=== PATIENT | female | born 1970 | race Caucasian/White ===

== ENCOUNTER 2018-01-21 00:48 | Outpatient (CLI) | payer MEDICAID, SELFPAY ==
--- NOTE | 2018-01-21 09:42 | DI.RAD_ITS ---
SYMPTOMS/DIAGNOSIS: CONSTIPATION, ? BOWEL OBSTRUCTION, K59.00 ABDOMEN: Two views were obtained. There is a large quantity of fecal material throughout the colon. No evidence of obstruction and otherwise the bowel gas pattern is within normal limits. Vascular clips are noted in right upper quadrant, left upper quadrant and the pelvis. CONCLUSION: Findings raising the possibility of constipation. No evidence of obstruction.
== END 2018-01-21 01:08 ==
PROVIDERS: PCP Nurse Practitioner; Visit Provider Surgery
DX: K59.00 Constipation, unspecified (principal)
CPT/HCPCS: 74019

== ENCOUNTER 2018-01-24 10:04 | Outpatient (CLI) | payer MEDICAID, SELFPAY ==
--- NOTE | 2018-01-24 06:00 | DI.RAD_ITS ---
SYMPTOMS/DIAGNOSIS: SACROILIAC JOINT DYSFUNCTION PAIN CLINIC: Fluoroscopy Time: 11.7 sec Fluoroscopy was utilized by Dr. Garrido during the performance of a right sacroiliac joint injection. Please refer to the procedure report for complete details.
[2018-01-24 10:42] VITALS: BP 107/72; PULSE 82; RESP 16; TEMP 36.8; O2SAT 98
[2018-01-24] MEDS: Omnipaque 240 MG/ML 50 ML BTL IJ (11:15)
[2018-01-24] MEDS: methylPREDNISolone ACETATE 80 MG/ML VIAL IJ (11:16)
[2018-01-24 11:17] VITALS: BP 119/78; PULSE 83; RESP 16; O2SAT 98
--- NOTE | 2018-01-24 13:46 | PDOC.PAIN ---
Pain Clinic Procedure Note INTRA-ARTICULAR SI JOINT INJECTION TARUN JEONG has been referred to the [facility] for intra-articular SI joint injection. COMMENTS: Previously evaluated DX: Sacroiliac joint dysfunction - Right Patient was interviewed and the medical record reviewed. There were no medical, pharmacologic, radiographic or other structural contraindications to attempting fluoroscopically guided intra-articular SI joint injection. Risks and expected side effects as well as potential benefit of the procedure were reviewed and voiced concerns addressed. The printed consent form was signed and witnessed. Standard time-out procedure was performed. Patient was placed in the prone position on the fluoroscopy table and automated blood pressure cuff and pulse oximeter applied. The skin entry point for approaching right/ SI joint was identified under the most advantageous fluoroscopic view and marked. Following thorough Chlorhexadine preparation of the skin and draping and 1% lidocaine infiltration of the skin entry point and subcutaneous tissues, a 22 gauge spinal needle was placed under fluoroscopic guidance into right SI joint was identified under the most advantageous fluoroscopic view and marked. Following thorough Chlorhexadine preparation of the skin and draping and 1% lidocaine infiltration of the skin entry point and subcutaneous tissues, a 22 gauge spinal needle was placed under fluoroscopic guidance into Right SI joint. Intra-articular placement was confirmed by a clear arthrogram resulting from the injection of 0.25ml Omnipaque 240, 1ml 1% lidocaine, and 40mg Depomedrol were injected intra-articularily with an initial reproduction of a significant component of the usual pain. Vital signs were stable throughout the procedure and were as recorded in the docflowsheet by the nursing staff. If given, dosages of intravenous drugs for anxiolysis and analgesia were documented in MAR. Follow up plans and appointments were discussed with the patient. Post procedure instruction was given as documented in nursing documentation and having met discharge criteria, and was discharged from the [facility]. COMMENTS: This procedure can be completed up to 3 times per 12 months if it is found to be effective. CC: Ariana Gordillo
--- NOTE | 2018-03-21 13:49 | PDOC.PAIN_ITS ---
Pain Clinic Procedure Note INTRA-ARTICULAR SI JOINT INJECTION TARUN JEONG has been referred to the [facility] for intra- articular SI joint injection. COMMENTS: Previously evaluated DX: Sacroiliac joint dysfunction - Right Patient was interviewed and the medical record reviewed. There were no medical , pharmacologic, radiographic or other structural contraindications to attempting fluoroscopically guided intra-articular SI joint injection. Risks and expected side effects as well as potential benefit of the procedure were reviewed and voiced concerns addressed. The printed consent form was signed and witnessed. Standard time-out procedure was performed. Patient was placed in the prone position on the fluoroscopy table and automated blood pressure cuff and pulse oximeter applied. The skin entry point for approaching right/ SI joint was identified under the most advantageous fluoroscopic view and marked. Following thorough Chlorhexadine preparation of the skin and draping and 1% lidocaine infiltration of the skin entry point and subcutaneous tissues, a 22 gauge spinal needle was placed under fluoroscopic guidance into right SI joint was identified under the most advantageous fluoroscopic view and marked. Following thorough Chlorhexadine preparation of the skin and draping and 1% lidocaine infiltration of the skin entry point and subcutaneous tissues, a 22 gauge spinal needle was placed under fluoroscopic guidance into Right SI joint. Intra-articular placement was confirmed by a clear arthrogram resulting from the injection of 0.25ml Omnipaque 240, 1ml 1% lidocaine, and 40mg Depomedrol were injected intra-articularily with an initial reproduction of a significant component of the usual pain. Vital signs were stable throughout the procedure and were as recorded in the docflowsheet by the nursing staff. If given, dosages of intravenous drugs for anxiolysis and analgesia were documented in MAR. Follow up plans and appointments were discussed with the patient. Post procedure instruction was given as documented in nursing documentation and having met discharge criteria, and was discharged from the [facility]. COMMENTS: This procedure can be completed up to 3 times per 12 months if it is found to be effective. CC: Ariana Gordillo
== END 2018-01-24 10:24 ==
PROVIDERS: PCP Nurse Practitioner; Visit Provider Preventive Medicine Occupational Medicine
DX: M53.3 Sacrococcygeal disorders, not elsewhere classified (principal)
CPT/HCPCS: 27096; 72200; J1040; Q9967

== ENCOUNTER 2018-03-06 09:09 | Outpatient (CLI) | payer MEDICAID, SELFPAY ==
[2018-03-06 17:49] LABS: Absolute Eosinophil Count 0.03 k/cumm (0.0-0.7); Absolute Lymphocyte Count 2.27 k/cumm (1.2-3.4); Absolute Monocyte Count 0.22 k/cumm (0.11-0.7); Absolute Neutrophil Count 1.24 k/cumm (1.2-6.7); Eosinophils % 0.8; HCT 32.4 % (36.0-46.0); HGB 10.9 g/dL (12.0-15.5); Lymphocytes % 60.4; Mean Corp. HGB Concentration 33.6 g/dL (32.0-36.0); Mean Corpuscular Hemoglobin 30.2 pg (27.0-33.0); Mean Corpuscular Volume 89.8 fL (80-95); Mean Platelet Volume 9.2 fL (8.0-11.0); Monocytes % 5.9; Neutrophils % 32.9; Platelet Count 171 x1000/uL (130-400); RBC 3.61 m/cumm (4.00-5.20); RBC Distribution Width 14.9 % (11.7-14.6); White Blood Cell Count 3.76 k/cumm (4.4-10.8)
[2018-03-06 19:23] LABS: ALT 23 U/L (12-78); AST 20 U/L (15-37); Albumin 3.9 g/dL (3.4-5.0); Alkaline Phosphatase 79 U/L (46-116); BUN 9 mg/dL (7-18); Bilirubin, Total 0.1 mg/dL (0.2-1.0); CREATININE 0.89 mg/dL (0.55-1.02); Calcium 8.7 mg/dL (8.5-10.1); Chloride 100 mmol/L (98-107); Glucose 111 mg/dL (70-100); Potassium 3.4 mmol/L (3.5-5.1); Sodium 138 mmol/L (136-145); Total Protein 7.3 g/dL (6.4-8.2)
[2018-03-06 20:03] LABS: Diff Comment Diff Reviewed
== END 2018-03-06 09:29 ==
PROVIDERS: PCP Nurse Practitioner; Visit Provider Nurse Practitioner Family
DX: Z01.812 Encounter for preprocedural laboratory examination (principal); R69 Illness, unspecified
CPT/HCPCS: 36415; 80053; 85025

== ENCOUNTER 2018-03-13 02:03 | Outpatient (CLI) | payer MEDICAID, SELFPAY ==
--- NOTE | 2018-03-13 | PFT_ITS ---
PULMONARY FUNCTION TEST REPORT Patient identification - Jodee Gunter DATE OF - 66 DATE OF SERVICE - 03/13/2018 REQUESTING PROVIDER Marva Joyner NP INTERPRETATION OF STUDY Spirometry shows no evidence of obstructive airways disease. No bronchodilator testing was carried out. LUNG VOLUMES - Lung volumes show no evidence of restriction. DIFFUSION CAPACITY- Normal. AIRWAY RESISTANCE - Normal. IMPRESSION Normal pulmonary function study. Clinical correlation recommended. Cathy Roth M.D. CHRISTY/kelsey T - 03/21/2018
== END 2018-03-13 02:23 ==
PROVIDERS: PCP Nurse Practitioner; Visit Provider Nurse Practitioner Family
DX: J45.20 Mild intermittent asthma, uncomplicated (principal)
CPT/HCPCS: 94150; 94726; 94729; 94010

== ENCOUNTER 2018-03-15 09:31 | Outpatient (REF) | payer MEDICAID, SELFPAY | END 2018-03-15 09:51 | LOC: NCHCN 09:31 | PROVIDERS: PCP Nurse Practitioner; Visit Provider Nurse Practitioner Family | DX: Z01.812 Encounter for preprocedural laboratory examination (principal); Z22.322 Carrier or suspected carrier of Methicillin resistant Staphylococcus aureus | CPT/HCPCS: 87081 ==

== ENCOUNTER 2018-06-13 14:21 | Emergency (ER) | payer MEDICAID, SELFPAY ==
[2018-06-13 14:26] VITALS: BP 145/81; PULSE 98; RESP 16; TEMP 38.1; O2SAT 98
--- NOTE | 2018-06-13 14:32 | NUR.NOTE ---
pt stated that she had surgery three months ago on right hip Nursing Note:
--- NOTE | 2018-06-13 14:34 | ED.GENADUL_ITS ---
Discharge Plan Disposition Patient Disposition: HOME Condition: Stable Discharge Details Chief Complaint: Orthopedic Clinical Impression: Contusion of hip, left Reason For Visit: ZAY Primary Care Provider: Ariana Gordillo ED Provider: Scott Ryder [place] Meds and New Rx's Prescriptions: New cyclobenzaprine 10 mg tablet 10 mg PO TID PRN (Reason: muscle spasm) Qty: 30 RF: 0 ondansetron 4 mg tablet,disintegrating 4 mg PO TID PRN (Reason: nausea and vomiting) 5 Days Qty: 30 RF: 0 No Action methadone 10 mg/5 mL solution 2.5 mg PO Q12H RF: 0 Lyrica 20 MG/1 ML solution 100 mg PO BID RF: 0 PROVENTIL HFA 18 GM HFA.AER.AD 2 puff Inhalation Q 4-6 HRS RF: 0 estradiol [Estrace] 0.5 MG tablet 1 mg PO DAILY RF: 0 alprazolam 0.5 MG tablet 0.5 mg PO BID 21 Days Qty: 40 RF: 0 Ibuprofen 800 MG tablet 800 mg PO Q8H PRN PRNRF: 0 trazodone 100 MG tablet 200 mg PO HS RF: 0 Discharge Instructions Instructions: Contusion in Adults (ED) Additional Instructions: you can take 1000mg tylenol and 600mg ibuprofen every 6 hours for pain as needed if pain continues next week see your primary care provider return to the emergency department if you have inability to urinate, high fevers, or severe worsening of pain return to the emergency department Medical Decision Making 48 yo female states she slipped on ice around 10am today and landed on left buttock/hip. Denies hitting head or loc and has no preceding symptoms to suggest presyncope/syncope and states it was purely mechanical. She has pain over the left asis. No palpable deformity. Does have full rom of the left hip though with pain, intact distal sensation and 2+ dp/pt pulses, no pain in knee or ankle. NO midline pain and no saddle anesthesia so doubt cauda equina or lumbar spine injury. Will xray hip to eval for fx though suspect contusion xray negative on my read. She is bearin weight so do not feel ct/mri indicated as unlikely fx. She is requesting crutches if needed. Will d/c home and advised f/u with pcp and return precautions Differential Diagnosis contusion, fx, sprain Imaging Data Radiologic Study: Attestation: I personally reviewed and interpreted this imaging study as follows: Imaging: X-Ray My impression: no acute findings and wet read per Dr. Stone agrees HPI General Mode of arrival: EMS . Date/Time Provider Initiated Documentation: 06/13/18 14:29 . Limitations to Documentation: no limitations . Information obtained by: patient . History of Present Illness 48 year old F presents to the emergency department with the chief complaint of left hip pain, described as moderate, with intensity rated at 7. Quality is described as aching, and is localized to the left. Patient reports no radiation. Patient started experiencing this hour(s) (4) and it has been constant. Rest improves symptom(s), Movement worsens symptoms . Patient notes no other symptoms.. Patient did receive the following treatments prior to arrival, NSAID Related Data Home Medications Medication Instructions Recorded Confirmed trazodone 200 mg PO HS 09/11/16 06/13/18 Ibuprofen 800 mg PO Q8H PRN PRN 12/26/16 06/13/18 Lyrica 100 mg PO BID ml 04/05/17 06/13/18 Proventil Hfa 2 puff INHALATION Q 4-6 HRS 04/05/17 06/13/18 inhaler estradiol [Estrace] 1 mg PO DAILY tab-cap 11/10/17 06/13/18 alprazolam 0.5 mg PO BID 21 Days #40 tab 11/14/17 06/13/18 methadone 10 mg/5 mL oral solution 2.5 mg PO Q12H ml 01/07/18 06/13/18 cyclobenzaprine 10 mg PO TID PRN #30 tab 06/13/18 ondansetron 4 mg PO TID PRN 5 Days #30 tab 06/13/18 Previous Rx's Medication Instructions Recorded alprazolam 0.5 mg PO BID 21 Days #40 tab 11/14/17 cyclobenzaprine 10 mg PO TID PRN #30 tab 06/13/18 ondansetron 4 mg PO TID PRN 5 Days #30 tab 06/13/18 Allergies Allergy/AdvReac Type Severity Reaction Status Date / Time cephalexin monohydrate Allergy Intermediate Skin Rash Verified 01/24/18 10:40 [From Keflex] zaleplon [From Sonata] Allergy Unknown Verified 01/24/18 10:40 oxycodone HCl Allergy Verified 01/24/18 10:40 [From OxyContin] buspirone AdvReac Unknown Verified 01/24/18 10:40 sertraline HCl [From Zoloft] AdvReac Unknown Verified 01/24/18 10:40 Review of Systems Review of Systems All systems reviewed & are unremarkable except as noted in HPI and below Constitutional Denies chills, Denies fever(s) and Denies weakness ENT Denies change in voice Cardiovascular Denies chest pain and Denies dyspnea Respiratory Denies cough and Denies dyspnea Gastrointestinal Denies abdominal pain, Denies nausea and Denies vomiting Musculoskeletal Denies joint swelling Neurologic Denies weakness Psychiatric Denies depression [facility] Medical History Panic attacks (Acute 08/04/14) Altered mental status (Acute 06/08/14) Mixed, or nondependent drug abuse (Acute 06/08/14) Anxiety (Chronic) Panic disorder (Chronic) Endometriosis (Chronic) History of colonic polyps (Chronic) Chronic neck pain (Chronic) Tobacco dependence (Chronic) Hepatitis C (Chronic) Noncompliance (Chronic) Encephalopathy acute (Acute 06/08/14) Abnormal LFTs (Acute) Abnormal mammogram (Acute) Back pain with left-sided radiculopathy (Acute) Breast mass in female (Acute) Cerumen impaction (Acute) Cerumen impaction (Acute) Constipation (Acute) Dizziness (Acute) Fatigue (Acute) Functional injury to cervical spinal cord (Acute) Irritability (Acute) Muscle herniation (Acute) Muscle herniation (Acute) Pain of both breasts (Acute) Paresthesia (Acute) Rib pain on right side (Acute) Acute encephalopathy Altered mental status Anxiety Benzodiazepine overdose Borderline personality disorder Cervical spondylosis Cervicalgia Chronic neck pain Chronic pain Combinations of opioid type drug with any other drug dependence, in remission Depression Drug induced constipation Endometriosis Female rectocele without uterine prolapse First degree AV block Hepatitis C Hot flashes Hx of colonic polyps Joint swelling Laceration of wrist Leg mass Localized swelling on hand Low back pain Memory impairment Mixed, or nondependent drug abuse, continuous Muscle herniation Opioid dependence Palpitations Panic attacks Panic disorder Right shoulder pain Tobacco abuse UTI (urinary tract infection) Surgical History H/O surgical procedure (Chronic) H/O spinal fusion (Acute) Hx laparoscopic cholecystectomy (Acute) S/P wrist surgery (Acute) Abdominal hysterectomy Arthroscopy, Shoulder Colonoscopy - MAC (01/16/17) Lorne Fundoplication Social History lives independently: Yes number of children: 2 current occupational status: unemployed what type of physical activity do you participate in: none Smoking and Tabacco status: Current every day tobacco type: e-cigarettes alcohol intake: never substance use type: does not use Exam Const General: no acute distress Orientation: alert HENMT Head: normal to inspection Ears: external ears normal General nose exam: external nose normal Mouth: moist mucous membranes Eyes General: appearance normal, both eyes and all related structures Neck Neck: normal visual inspection Resp Effort & Inspection: normal respiratory effort and able to speak in complete sentences Cardio Rate: regular rate Skin General skin exam: no rashes or lesions noted Neuro General: alert and oriented x3 Extrem General: normal to inspection Psych Mental Status: mental status grossly normal
--- NOTE | 2018-06-13 14:49 | DI.RAD_ITS ---
SYMPTOMS/DIAGNOSIS: PAIN S/P FALL LEFT HIP AND PELVIS: Three views. No acute fracture or dislocation is identified. Postsurgical changes are seen in the right SI joint. The soft tissues are unremarkable. IMPRESSION: No acute fracture or dislocation of the left hip.
[2018-06-13] MEDS: Acetaminophen 500 MG TAB 1000 MG PO (14:56)
[2018-06-13] MEDS: Cyclobenzaprine 10 MG TAB PO (14:57)
[2018-06-13 15:01] VITALS: BP 145/90; PULSE 85; RESP 18; TEMP 37.3; O2SAT 97
[2018-06-13 15:24] VITALS: BP 130/74; PULSE 80; RESP 18; O2SAT 96
[2018-06-13 15:25] VITALS: BP 130/74; PULSE 80; RESP 18; TEMP 37.3; O2SAT 96
== END 2018-06-13 15:34 | disposition home or self-care (01) ==
PROVIDERS: Emergency Provider Emergency Medicine; PCP Nurse Practitioner
DX: S70.02XA Contusion of left hip, initial encounter (principal); W00.0XXA Fall on same level due to ice and snow, initial encounter
CPT/HCPCS: 99283; 73502; E0114

== ENCOUNTER 2018-07-11 16:16 | Emergency (ER) | payer MEDICAID, SELFPAY ==
[2018-07-11 16:28] VITALS: BP 143/87; PULSE 90; RESP 18; TEMP 36.7
--- NOTE | 2018-07-11 16:39 | ED.GENADUL_ITS ---
Discharge Plan Disposition Patient Disposition: HOME Condition: Good Discharge Details Chief Complaint: GenMedical Clinical Impression: Pain in right arm Primary Care Provider: Ariana Gordillo ED Provider: Guillermo [place] Home Meds and New Rx's Prescriptions: New sulfamethoxazole-trimethoprim [Bactrim DS] 800-160 mg tablet 1 tab PO BID Qty: 14 RF: 0 Xarelto 15 mg tablet 15 mg PO BID Qty: 42 RF: 0 No Action methadone 10 mg/5 mL solution 2.5 mg PO Q12H RF: 0 Lyrica 20 MG/1 ML solution 100 mg PO BID RF: 0 PROVENTIL HFA 18 GM HFA.AER.AD 2 puff Inhalation Q 4-6 HRS RF: 0 estradiol [Estrace] 0.5 MG tablet 1 mg PO DAILY RF: 0 alprazolam 0.5 MG tablet 0.5 mg PO BID 21 Days Qty: 40 RF: 0 Ibuprofen 800 MG tablet 800 mg PO Q8H PRN PRNRF: 0 cyclobenzaprine 10 mg tablet 10 mg PO TID PRN (Reason: muscle spasm) Qty: 30 RF: 0 trazodone 100 MG tablet 200 mg PO HS RF: 0 Discharge Instructions Instructions: Musculoskeletal Pain (ED) Additional Instructions: Please continue taking your Motrin and Tylenol for your pain. Please use warm compresses to your arm every hour. Please follow-up with the ultrasound tomorrow here at the hospital. You have been prescribed the anticoagulation medication. If the ultrasound shows no evidence of DVT , your symptoms are most likely secondary to mild muscle sprain. Out of precaution please take the antibiotic as directed though. If you notice any worsening of your symptoms, or any new symptoms such as vomiting, diarrhea, fever, chills, shortness of breath, chest pain, numbness, weakness, or fainting , please return immediately to the emergency department for reevaluation. Please follow up with your primary care provider as soon as possible for reassessment and reevaluation. As always, it was a pleasure participating in your medical care today. Referrals: Ariana Gordillo [Primary Care Provider] - Discharge Data Discharge Date/Time-TO BE ENTERED AT DEPARTURE: 07/11/18 16:58 Medical Decision Making This is a pleasant 48-year-old female with no significant past medical history aside for methadone use and trazodone use, who presents today for evaluation of mild pain in her right arm by the AC joint. There is a small amount of swelling there, no evidence of abscess or fluctuance. She denies any IV or illicit drug use. Physical exam demonstrates no significant pain with movement at the elbow, or otherwise any significant muscular pain. She denies recalling any traumatic event. She does admit to a subjective fever that she wild s had over the last 1-2 days at home, however she is afebrile here but she has been taking Tylenol Motrin. No clinical evidence of necrotizing fasciitis, compartments are otherwise soft. With no evidence of abscess, do not think incision and drainage is indicated at this time. We will start the patient on antibiotic though for potential mild infection. The differential though also includes potential upper extremity DVT. I could not appreciate this on portable ultrasound however we do need formal ultrasonography. We attempted to contact ultrasound, however they stated that they were unable to perform an ultrasound at this time of day and will be happy to schedule it for an outpatient component. I discussed this with the patient patient did agree for outpatient ultrasound tomorrow morning of the right upper extremity. I did also discuss with her potential anticoagulation in the meantime and she would like to hold off on anticoagulants. We will give the prescription to her if she does change her mind. She does understand the risks and benefits of this choice. I feel the patient's symptoms could be mild cellulitis versus mild muscle strain. Recommend continue Tylenol and Motrin and warm compresses. We discussed red flags for which to immediately return the patient understands. I have extensively reviewed the treatment plan and discharge instructions with the patient. I have addressed all patient concerns at this time. The patient was made aware of what symptoms to monitor for that would warrant a return to the emergency department. Discussed the plan with the patient, they demonstrate verbal understanding and agreement with our assessment and plan at this time. HPI General Date/Time Provider Initiated Documentation: 07/11/18 16:18 . HPI Narrative: This is a 48-year-old female with a past medical history of methadone use, trazodone use, no other significant medical problems including no history of PE. She presents today for evaluation of right AC joint pain just proximal to the AC joint. Patient states that for the last 2 days she has had mild pain at the distal aspect of the bicep just proximal to the AC joint. She denies any trauma, IV or illicit drug use, or other complaints in that area. She admits to mild subjective swelling, she also complains of mild chills and mild fever at home with a T-max of 100-101. Pain is slightly made worse with movement, no pain in the joint itself. She denies any associated numbness tingling or weakness. She denies any swelling in her lower aspect of her arm. She denies any chest pain shortness of breath. She has no other complaints or modifying factors at this time. Related Data Home Medications Medication Instructions Recorded Confirmed trazodone 200 mg PO HS 09/11/16 06/13/18 Ibuprofen 800 mg PO Q8H PRN PRN 12/26/16 06/13/18 Lyrica 100 mg PO BID ml 04/05/17 06/13/18 Proventil Hfa 2 puff INHALATION Q 4-6 HRS 04/05/17 06/13/18 inhaler estradiol [Estrace] 1 mg PO DAILY tab-cap 11/10/17 06/13/18 alprazolam 0.5 mg PO BID 21 Days #40 tab 11/14/17 06/13/18 methadone 10 mg/5 mL oral solution 2.5 mg PO Q12H ml 01/07/18 06/13/18 cyclobenzaprine 10 mg PO TID PRN #30 tab 06/13/18 rivaroxaban [Xarelto] 15 mg PO BID #42 tab 07/11/18 sulfamethoxazole-trimethoprim 1 tab PO BID #14 tab 07/11/18 [Bactrim DS] Previous Rx's Medication Instructions Recorded alprazolam 0.5 mg PO BID 21 Days #40 tab 11/14/17 cyclobenzaprine 10 mg PO TID PRN #30 tab 06/13/18 rivaroxaban [Xarelto] 15 mg PO BID #42 tab 07/11/18 sulfamethoxazole-trimethoprim 1 tab PO BID #14 tab 07/11/18 [Bactrim DS] Allergies Allergy/AdvReac Type Severity Reaction Status Date / Time cephalexin monohydrate Allergy Intermediate Skin Rash Verified 07/11/18 16:30 [From Keflex] zaleplon [From Sonata] Allergy Unknown Verified 07/11/18 16:30 oxycodone HCl Allergy Verified 07/11/18 16:30 [From OxyContin] buspirone AdvReac Unknown Verified 07/11/18 16:30 sertraline HCl [From Zoloft] AdvReac Unknown Verified 07/11/18 16:30 General Stated Complaint: GenMedical LIO: 4 Review of Systems Review of Systems All systems reviewed & are unremarkable except as noted in HPI and below PFSH Social History Smoking/Tobacco Use Status: Current every day Tobacco Type: e-cigarettes Alcohol Intake: current Drug use: Never Substance use type: does not use Number of Children: 2 What type of physical activity do you participate in: none Do you feel safe at home: Yes Do you feel safe in your relationship?: Yes Exam Narrative Exam Narrative: 1.Const: Well-nourished, Well-developed, appearing stated age 2.Eyes: PERRL, no conjunctival injection, and symmetrical lids. 3.ENT: Atraumatic external nose and ears. Moist MM. Neck: Symmetric, trachea midline, No thyromegaly. 4.CVS: +S1/S2, No murmurs or gallops. Peripheral pulses 2+ and equal in all extremities. Brisk capillary refill in all extremities. 5.RESP: Unlabored respiratory effort. Clear to auscultation bilaterally. No wheezes rales or rhonchi 6.GI: Soft, Nontender/Nondistended, No hepatosplenomegaly. No guarding or rebound. 7.MSK: Normocephalic/Atraumatic, Extremities w/o deformity or significant Ttp No cyanosis or clubbing, Normal movement of all extremities. Minimal evidence of soft tissue swelling at the distal aspect of the bicep just proximal to the AC joint. No redness, no significant warmth, minimal tenderness on palpation. Limited bedside ultrasound demonstrates no evidence of absent, pocket, or significant abnormality or mass that can be appreciated on limited exam at this time. No pain in the joint itself, no pain with movement of the joint. 8.Skin: Warm, Dry. No rashes or lesions. 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 Sensation grossly intact, no focal neurologic deficits. 10.Psych: (AAO) x3. Appropriate mood and affect Course Vital Signs Temperature 36.7 C 07/11/18 16:28 Pulse 90 07/11/18 16:28 Respiratory Rate 18 07/11/18 16:28 Blood Pressure 143/87 H 07/11/18 16:28 Temperature 36.7 C 07/11/18 16:28 Pulse 90 07/11/18 16:28 Respiratory Rate 18 07/11/18 16:28 Blood Pressure 143/87 H 07/11/18 16:28 Pain Level 5 07/11/18 16:28
--- NOTE | 2018-07-11 16:55 | NUR.NOTE ---
patient has strong right radial pulse. patient educated on medications Nursing Note:
== END 2018-07-11 16:58 | disposition home or self-care (01) ==
PROVIDERS: Emergency Provider Student in an Organized Health Care Education/Training Program; PCP Nurse Practitioner
DX: M79.601 Pain in right arm (principal)
CPT/HCPCS: 99283

== ENCOUNTER 2018-07-12 07:49 | Outpatient (CLI) | payer MEDICAID, SELFPAY ==
--- NOTE | 2018-07-12 12:20 | DI.US_ITS ---
SYMPTOMS/DIAGNOSIS: MID RIGHT ARM PAIN BY ACROMIOCLAVICULAR JOINT, REDNESS WITHIN ELBOW, H/O IV DRUG USE ABOUT 25 YEARS AGO, ? DVT RIGHT UPPER EXTREMITY ULTRASOUND: The visualized portions of the right subclavian and jugular veins are patent with normal blood flow. The axillary, cephalic, brachial and basilic veins shows normal compression, augmentation and color flow. There is no evidence of a deep venous thrombus present. IMPRESSION: No evidence of a right upper extremity deep venous thrombus.
== END 2018-07-12 08:09 ==
PROVIDERS: PCP Nurse Practitioner; Visit Provider Student in an Organized Health Care Education/Training Program
DX: M79.621 Pain in right upper arm (principal); L53.8 Other specified erythematous conditions; Z87.898 Personal history of other specified conditions
CPT/HCPCS: 93971

== ENCOUNTER 2018-07-28 14:41 | Emergency (ER) | payer MEDICAID, SELFPAY ==
[2018-07-28 14:49] VITALS: BP 116/67; PULSE 86; RESP 16; TEMP 36.8; O2SAT 95
[2018-07-28 15:25] LABS: Bilirubin Small (Negative); Blood Negative (Negative); Clarity Clear; Glucose Negative (Negative); Ketones Trace mg/dL (Negative); Leukocyte Esterase Trace (Negative); Nitrite Negative (Negative); Specific Gravity 1.025 (1.005-1.025); Urobilinogen 0.2 EU/dL (Up TO 0.2)
--- NOTE | 2018-07-28 15:28 | ED.GENADUL_ITS ---
Discharge Plan Disposition Patient Disposition: HOME Condition: Stable Discharge Details Chief Complaint: PsychEval Clinical Impression: Laceration of wrist, right, Deliberate self-cutting Primary Care Provider: Marva Joyner ED Provider: Sofy Gusman Home Meds and New Rx's Prescriptions: No Action methadone 10 mg/5 mL solution 2.5 mg PO Q12H RF: 0 Lyrica 20 MG/1 ML solution 100 mg PO BID RF: 0 PROVENTIL HFA 18 GM HFA.AER.AD 2 puff Inhalation Q 4-6 HRS RF: 0 estradiol [Estrace] 0.5 MG tablet 1 mg PO DAILY RF: 0 alprazolam 0.5 MG tablet 0.5 mg PO BID 21 Days Qty: 40 RF: 0 Ibuprofen 800 MG tablet 800 mg PO Q8H PRN PRNRF: 0 cyclobenzaprine 10 mg tablet 10 mg PO TID PRN (Reason: muscle spasm) Qty: 30 RF: 0 sulfamethoxazole-trimethoprim [Bactrim DS] 800-160 mg tablet 1 tab PO BID Qty: 14 RF: 0 Xarelto 15 mg tablet 15 mg PO BID Qty: 42 RF: 0 trazodone 100 MG tablet 200 mg PO HS RF: 0 Discharge Instructions Instructions: Laceration (ED) Additional Instructions: Keep the wound clean, dry and covered. If you notice any signs of redness, swelling or pain, apply topical antibiotic ointment. Follow-up with primary care doctor or return to the emergency department in 7 days for suture removal. Follow-up with [facility] or [facility] psychiatric nurse practitioner for counseling. Return immediately to the emergency department with any worsening or new concerning symptoms. Discharge Data Discharge Physician: Sofy Gusman Medical Decision Making 48-year-old female with a history of anxiety, panic attacks, hepatitis C, opioid dependence on methadone who presents for persistently bleeding right wrist laceration after self cutting this afternoon. She denies suicidal ideation and states she only cut herself to feel the pain. She presents because the wound is persistently bleeding. Able to determine at this status and is up-to-date. Vitals within normal limits. Patient has a 4 cm straight laceration noted on the volar surface of the distal forearm with mild active oozing. No obvious tendon or bony injury. She has chronic diminished sensation to the right fourth and fifth fingers due to chronic shoulder injury and pain but otherwise neurovascularly intact. No foreign bodies noted. Discussed with patient at length and she was initially hesitant for suture placement but she is now agreeable. Will call mental health for evaluation at bedside. I suspect the patient will be able to be discharged home as she is not suicidal and presents mainly for a medical concern due to her cutting. 1720 --chas from and nightly discussed with patient at bedside and she is cleared for discharge. Patient again denies any suicidal ideation. Plan is for her to follow-up with [facility] or [facility] psychiatric nurse practitioner for counseling. She is instructed to return to the emergency department in 7 days for suture removal. She is instructed on proper wound care. She is instructed return here at any time with any worsening or new concerning symptoms. HPI General Mode of arrival: ambulatory . Date/Time Provider Initiated Documentation: 07/28/18 14:53 . Limitations to Documentation: no limitations . Information obtained by: patient . HPI Narrative: Patient is a 48-year-old female with a history of anxiety, panic attacks, hepatitis C and opioid dependence on methadone who presents with right wrist laceration after self cutting today. Patient states she is a cutter and occasionally cuts her wrist but has not done this recently. She states that she did not realize how sharp the knife was today and when she cut her wrist cut a little too deep and states the bleeding will not stop. She states she had no intention to harm or kill herself. She is unsure of her tetanus status. She states she has a history of chronic tingling in her right fourth and fifth finger due to a chronic shoulder injury and pain and states this is no worse than usual. Related Data Home Medications Medication Instructions Recorded Confirmed trazodone 200 mg PO HS 09/11/16 06/13/18 Ibuprofen 800 mg PO Q8H PRN PRN 12/26/16 06/13/18 Lyrica 100 mg PO BID ml 04/05/17 06/13/18 Proventil Hfa 2 puff INHALATION Q 4-6 HRS 04/05/17 06/13/18 inhaler estradiol [Estrace] 1 mg PO DAILY tab-cap 11/10/17 06/13/18 alprazolam 0.5 mg PO BID 21 Days #40 tab 11/14/17 06/13/18 methadone 10 mg/5 mL oral solution 2.5 mg PO Q12H ml 01/07/18 06/13/18 cyclobenzaprine 10 mg PO TID PRN #30 tab 06/13/18 rivaroxaban [Xarelto] 15 mg PO BID #42 tab 07/11/18 sulfamethoxazole-trimethoprim 1 tab PO BID #14 tab 07/11/18 [Bactrim DS] Previous Rx's Medication Instructions Recorded alprazolam 0.5 mg PO BID 21 Days #40 tab 11/14/17 cyclobenzaprine 10 mg PO TID PRN #30 tab 06/13/18 rivaroxaban [Xarelto] 15 mg PO BID #42 tab 07/11/18 sulfamethoxazole-trimethoprim 1 tab PO BID #14 tab 07/11/18 [Bactrim DS] Allergies Allergy/AdvReac Type Severity Reaction Status Date / Time cephalexin monohydrate Allergy Intermediate Skin Rash Verified 07/28/18 14:57 [From Keflex] zaleplon [From Sonata] Allergy Unknown Verified 07/28/18 14:57 oxycodone HCl Allergy Verified 07/28/18 14:57 [From OxyContin] buspirone AdvReac Unknown Verified 07/28/18 14:57 sertraline HCl [From Zoloft] AdvReac Unknown Verified 07/28/18 14:57 General Stated Complaint: PsychEval LIO: 2 Review of Systems Review of Systems All systems reviewed & are unremarkable except as noted in HPI and below Constitutional Reports as per HPI, Denies chills and Denies fever(s) Eyes Denies blurry vision ENT Denies dizziness, Denies sore throat and Denies throat swelling Cardiovascular Denies chest pain and Denies dyspnea Respiratory Denies cough and Denies dyspnea Gastrointestinal Denies abdominal pain, Denies diarrhea and Denies vomiting Genitourinary Denies hematuria and Denies dysuria Musculoskeletal Denies back pain and Denies numbness Integumentary/Breasts Denies lesions and Denies rash Neurologic Denies dizziness, Denies focal weakness and Denies numbness Allergic/Immunologic Denies throat swelling [facility] Medical History Panic attacks (Acute 08/04/14) Altered mental status (Acute 06/08/14) Mixed, or nondependent drug abuse (Acute 06/08/14) Anxiety (Chronic) Panic disorder (Chronic) Endometriosis (Chronic) History of colonic polyps (Chronic) Chronic neck pain (Chronic) Tobacco dependence (Chronic) Hepatitis C (Chronic) Noncompliance (Chronic) Encephalopathy acute (Acute 06/08/14) Abnormal LFTs (Acute) Abnormal mammogram (Acute) Back pain with left-sided radiculopathy (Acute) Breast mass in female (Acute) Cerumen impaction (Acute) Cerumen impaction (Acute) Constipation (Acute) Dizziness (Acute) Fatigue (Acute) Functional injury to cervical spinal cord (Acute) Irritability (Acute) Muscle herniation (Acute) Muscle herniation (Acute) Pain of both breasts (Acute) Paresthesia (Acute) Rib pain on right side (Acute) Acute encephalopathy Altered mental status Anxiety Benzodiazepine overdose Borderline personality disorder Cervical spondylosis Cervicalgia Chronic neck pain Chronic pain Combinations of opioid type drug with any other drug dependence, in remission Depression Drug induced constipation Endometriosis Female rectocele without uterine prolapse First degree AV block Hepatitis C Hot flashes Hx of colonic polyps Joint swelling Laceration of wrist Leg mass Localized swelling on hand Low back pain Memory impairment Mixed, or nondependent drug abuse, continuous Muscle herniation Opioid dependence Palpitations Panic attacks Panic disorder Right shoulder pain Tobacco abuse UTI (urinary tract infection) Surgical History H/O surgical procedure (Chronic) H/O spinal fusion (Acute) Hx laparoscopic cholecystectomy (Acute) S/P wrist surgery (Acute) Abdominal hysterectomy Arthroscopy, Shoulder Colonoscopy - MAC (01/16/17) Lorne Fundoplication Social History Smoking/Tobacco Use Status: Current every day Tobacco Type: e-cigarettes Alcohol Intake: current Drug use: Never Substance use type: does not use Number of Children: 2 What type of physical activity do you participate in: none Do you feel safe at home: Yes Do you feel safe in your relationship?: Yes Exam Const General: cooperative, healthy appearing and no acute distress HENMT Head: normal to inspection Mouth: oral mucosae normal Eyes General: appearance normal, both eyes and all related structures Neck Neck: normal visual inspection Resp Effort & Inspection: normal respiratory effort and able to speak in complete sentences Cardio Rate: regular rate Skin General skin exam: no rashes or lesions noted Neuro General: alert, awake and oriented x3 Motor: muscle tone normal throughout Extrem Elbow/forearm/wrist images: 1. 4 cm straight laceration noted on distal right volar forearm. Mild active oozing. Extends through the dermis approximately 2 mm. Psych Appearance: grossly normal Affect: normal affect Course Vital Signs Temperature 98.2 F 07/28/18 14:49 Pulse 86 07/28/18 14:49 Respiratory Rate 16 07/28/18 14:49 Blood Pressure 116/67 07/28/18 14:49 Pulse Oximetry 95 07/28/18 14:49 Temperature 98.2 F 07/28/18 14:49 Temperature Source Skin 07/28/18 14:49 Pulse 86 07/28/18 14:49 Respiratory Rate 16 07/28/18 14:49 Respiratory Effort 07/28/18 14:57 Blood Pressure 116/67 07/28/18 14:49 Blood Pressure Position Sitting 07/28/18 14:49 Pulse Oximetry 95 07/28/18 14:49 Oxygen Delivery Method Room Air 07/28/18 14:49 Oxygen Flow Rate 0 07/28/18 14:49 Pain Level 8 07/28/18 14:49 Procedures Laceration Laceration 1: Site: upper extremity Side (If applicable): right Size (cm): 4 Description: linear Depth: simple, single layer Local Anesthetic: Lidocaine 1% Amount of anesthesia used (mL): 10 Pre-repair: wound explored, irrigated extensively and deep structures intact Skin layer closed with: nylon Size (cm): 5-0 Number of sutures: 7 Technique: simple, interrupted
[2018-07-28 15:33] LABS: Epithelial Cells Few HPF (Negative); Other Cells Rare Renal (Negative); RBC Negative (0-2)
[2018-07-28 15:34] LABS: Bacteria Few HPF (Negative); C & S Indicated? No; Casts Negative LPF (Negative); Crystals Negative HPF (Negative); Mucus Heavy (Negative)
[2018-07-28 15:44] LABS: *AMPHETAMINES SCREEN URINE Negative (Negative); *BARBITURATES SCREEN URINE Negative (Negative); *BENZODIAZEPINES SCREEN URINE POSITIVE (Negative); Cannabinoids THC Negative (Negative); Cocaine Screen,Urine Negative (Negative); METHADONE URINE SCREEN POSITIVE (Negative); OPIATES URINE SCREEN Negative (Negative)
[2018-07-28] MEDS: Lidocaine/Epinephri/Tetracaine Topical Gel 3 ML (15:46)
[2018-07-28 15:47] LABS: Tricyclic Antidepressants Negative (Negative)
--- NOTE | 2018-07-28 17:22 | PDOC.MHCN ---
Date of service: 07/28/18 Time of Service: 17:22 Mental Health Crisis Note Presenting Issue How did you arrive at the ED and why did you come: Angie came to the ED on her own after cutting her right wrist too deep while self injuring. She needed medical attention as it started to bleed badly after cutting an hour prior. Precipitating Factors K denied SI and HI stating I have too much to live for. Disposition BEHAVIOR: Cooperative and engaged. Calm and insightful. EYE CONTACT: Fair she did present as a bit dopey and stated she was having a hard time staying awake. MOOD: Normal AFFECT: flat and tired appearing. APPETITE: Angie reported her appetite is poor. SLEEP(trouble falling/staying asleep: Angie reported her sleep is not good. Plan Angie has two options for her to think about. She can utilize [facility] which she may as she reports she has heard good things about them for psychiatry and/or counseling or she can return to her PCP office and utilize her therapist there and get a referral to the [facility]. She is aware of both and has numbers for both. Provisional Diagnosis Adjustment d/o nos Signature Clinician's Name/Title: Naima Blackman MS Emergency Services Clinician
--- NOTE | 2018-07-28 17:55 | NUR.NOTE ---
Nursing Note: 1750 patient left prior to receiving discharge instructions. Discharge instructions mailed to patient. Kimberly Trevizo.
== END 2018-07-28 17:50 | disposition home or self-care (01) ==
LOC: ER 16:00
PROVIDERS: Emergency Provider Physician Assistant; PCP Nurse Practitioner Family
DX: S61.511A Laceration without foreign body of right wrist, initial encounter (principal); X78.1XXA Intentional self-harm by knife, initial encounter
CPT/HCPCS: 12004; 80307; 99283; 99284; 81003; 81015

== ENCOUNTER 2018-07-29 14:24 | Emergency (ER) | payer MEDICAID, SELFPAY ==
[2018-07-29 14:41] VITALS: BP 109/70; PULSE 84; RESP 16; TEMP 36.5; O2SAT 93
--- NOTE | 2018-07-29 14:47 | W.ED.GENAD ---
Discharge Plan Disposition Patient Disposition: HOME Condition: Stable Discharge Details Chief Complaint: EyeProblem Clinical Impression: Cellulitis Primary Care Provider: Marva Joyner ED Provider: Shanti Matthews Home Meds and New Rx's Prescriptions: New doxycycline hyclate 100 mg tablet 100 mg PO BID Qty: 19 RF: 0 Continued methadone 10 mg/5 mL solution 105 mg PO DAILY RF: 0 Lyrica 20 MG/1 ML solution 100 mg PO BID RF: 0 PROVENTIL HFA 18 GM HFA.AER.AD 2 puff Inhalation Q 4-6 HRS RF: 0 Ibuprofen 800 MG tablet 800 mg PO Q8H PRN PRNRF: 0 alprazolam 0.5 MG tablet 0.5 mg PO BID PRN (Reason: Anxiety) RF: 0 trazodone 100 MG tablet 200 mg PO HS RF: 0 Discharge Instructions Instructions: Doxycycline (By mouth), Laceration (ED), Cellulitis (ED) Additional Instructions: Please return immediately to the emergency department if you develop any new or worsening symptoms or if you become otherwise concerned. It is extremely important that you make an appointment to be seen in follow-up for this visit by your primary care doctor as soon as possible. Referrals: Marva Joyner [Primary Care Provider] - Medical Decision Making Jodee Gunter is a 48 y/o woman with history of arthritis, anxiety, GERD, opiate drug use now on methadone who presented to the emergency department with redness around the laceration that was repaired yesterday here. On exam patient is well and nontoxic appearing. There is approximate 1.5 cm of erythema surrounding her laceration, with sutures clean dry and intact. There is no wound dehiscence. Concern for possible cellulitis. Location and nature of wound is concerning for self-inflicted wound. Patient was seen here by mental health for this yesterday. Patient today denies any suicidality. Quit should be I care, who are reported that patient had no foreign body but did have corneal abrasion on exam and was started on steroid/antibiotic drops. Exam/history is not consistent with glaucoma, endophthalmitis, sepsis, abscess, other acute emergent life-threatening process. Plan for doxycycline for cellulitis. I had a lengthy discussion with the patient regarding return to emergency department precautions, home care, and importance of outpatient follow-up with PCP. Patient was discharged home with clear plan for outpatient follow-up. Patient verbalized understanding the plan was amenable. All questions were answered. Medical Records Medical records reviewed: Yes I reviewed the patient's medical records. HPI General Mode of arrival: ambulatory. Date/Time Provider Initiated Documentation: 07/29/18 14:47. Limitations to Documentation: no limitations. Information obtained by: patient, RN notes reviewed and old records reviewed. HPI Narrative: Jodee Gunter is a 48 y/o woman with history of opiate drug use now on methadone, GERD, anxiety, arthritis presenting to the emergency department with redness around a repaired laceration. Patient reports that she was seen here yesterday for wound to her right anterior wrist. She states that yesterday she cut it on a broken cup. Stitches were placed. Patient reports that she woke up this morning and there seemed to be some redness around the area and she was concerned, thus bring her to the emergency department. No drainage or swelling. She has been taking Tylenol and Motrin at home for pain in her wrist. Patient denies any other pain, other than a foreign body sensation in her right eye since yesterday with watery discharge for which she was seen at [facility] this morning. She reports that symptoms are unchanged since yesterday. She was diagnosed with corneal abrasion and discharged on antibiotic/steroid drops per my discussion with [facility]. She denies deep eye pain or vision changes. No fever, no vomiting, no diarrhea, no shortness of breath, no cough. She denies any suicidality. Related Data Home Medications Medication Instructions Recorded Confirmed trazodone 200 mg PO HS 09/11/16 07/29/18 Ibuprofen 800 mg PO Q8H PRN PRN 12/26/16 07/29/18 Lyrica 100 mg PO BID ml 04/05/17 07/29/18 Proventil Hfa 2 puff INHALATION Q 4-6 HRS 04/05/17 07/29/18 inhaler methadone 10 mg/5 mL oral solution 105 mg PO DAILY ml 01/07/18 07/29/18 alprazolam 0.5 mg PO BID PRN 07/29/18 07/29/18 doxycycline hyclate 100 mg PO BID #19 tab 07/29/18 Previous Rx's Medication Instructions Recorded doxycycline hyclate 100 mg PO BID #19 tab 07/29/18 Allergies Allergy/AdvReac Type Severity Reaction Status Date / Time cephalexin monohydrate Allergy Intermediate Skin Rash Verified 07/28/18 14:57 [From Keflex] zaleplon [From Sonata] Allergy Unknown Verified 07/28/18 14:57 oxycodone HCl Allergy Verified 07/28/18 14:57 [From OxyContin] buspirone AdvReac Unknown Verified 07/28/18 14:57 sertraline HCl [From Zoloft] AdvReac Unknown Verified 07/28/18 14:57 General Stated Complaint: EyeProblem LIO: 5 Review of Systems Review of Systems Constitutional: denies fevers Eyes: Reports mild superficial eye burning without deep eye pain or blurry vision ENT: denies facial pain, dental pain, sore throat Cardiovascular: denies chest pain Respiratory: denies SOB, cough GI: denies abdominal pain, vomiting, diarrhea : denies flank pain MSK: denies back pain, neck pain, arthralgias, myalgias Skin: Reports redness around repaired laceration Neuro: denies headaches [facility] Medical History Panic attacks (Acute 08/04/14) Altered mental status (Acute 06/08/14) Mixed, or nondependent drug abuse (Acute 06/08/14) Anxiety (Chronic) Panic disorder (Chronic) Endometriosis (Chronic) History of colonic polyps (Chronic) Chronic neck pain (Chronic) Tobacco dependence (Chronic) Hepatitis C (Chronic) Noncompliance (Chronic) Encephalopathy acute (Acute 06/08/14) Abnormal LFTs (Acute) Abnormal mammogram (Acute) Back pain with left-sided radiculopathy (Acute) Breast mass in female (Acute) Cerumen impaction (Acute) Cerumen impaction (Acute) Constipation (Acute) Dizziness (Acute) Fatigue (Acute) Functional injury to cervical spinal cord (Acute) Irritability (Acute) Muscle herniation (Acute) Muscle herniation (Acute) Pain of both breasts (Acute) Paresthesia (Acute) Rib pain on right side (Acute) Acute encephalopathy Altered mental status Anxiety Benzodiazepine overdose Borderline personality disorder Cervical spondylosis Cervicalgia Chronic neck pain Chronic pain Combinations of opioid type drug with any other drug dependence, in remission Depression Drug induced constipation Endometriosis Female rectocele without uterine prolapse First degree AV block Hepatitis C Hot flashes Hx of colonic polyps Joint swelling Laceration of wrist Leg mass Localized swelling on hand Low back pain Memory impairment Mixed, or nondependent drug abuse, continuous Muscle herniation Opioid dependence Palpitations Panic attacks Panic disorder Right shoulder pain Tobacco abuse UTI (urinary tract infection) Social History Smoking/Tobacco Use Status: Current every day Tobacco Type: e-cigarettes Alcohol Intake: current Drug use: Never Substance use type: does not use Number of Children: 2 What type of physical activity do you participate in: none Do you feel safe at home: Yes Do you feel safe in your relationship?: Yes Exam Narrative Exam Narrative: Constitutional: well and [id number], pleasant, conversing normally HENT: head atraumatic/normocephalic/normal inspection, mucous membranes moist Eyes: conjunctiva normal/sclera normal on left, conjunctiva with fluorescein stain on right, pupils 3mm b/l Neck: no stridor, normal ROM, trachea midline Resp: normal work of breathing Cardio: normal rate, normal rhythm Skin: warm, dry, normal color, no rash Neuro: alert, not altered, grossly non-focal, normal tone Ext: Right anterior wrist with laceration, stitches intact, no edema, no fluctuance, no drainage. Approximately 1.5 cm surrounding erythema Psych: normal mood, normal affect, normal behavior Course Vital Signs Temperature 36.5 C 07/29/18 14:41 Pulse 84 07/29/18 14:41 Respiratory Rate 16 07/29/18 14:41 Blood Pressure 109/70 07/29/18 14:41 Pulse Oximetry 93 L 07/29/18 14:41 Temperature 36.5 C 07/29/18 14:41 Temperature Source Temporal Artery Scan 07/29/18 14:41 Pulse 84 07/29/18 14:41 Respiratory Rate 16 07/29/18 14:41 Blood Pressure 109/70 07/29/18 14:41 Pulse Oximetry 93 L 07/29/18 14:41 Oxygen Delivery Method Room Air 07/29/18 14:41 Oxygen Flow Rate 0 07/29/18 14:41 Pain Level 9 07/29/18 14:41
--- NOTE | 2018-07-29 15:03 | ED.GENADUL_ITS ---
Discharge Plan Disposition Patient Disposition: HOME Condition: Stable Discharge Details Chief Complaint: EyeProblem Clinical Impression: Cellulitis Primary Care Provider: Marva Joyner ED Provider: Shanti Matthews Home Meds and New Rx's Prescriptions: New doxycycline hyclate 100 mg tablet 100 mg PO BID Qty: 19 RF: 0 Continued methadone 10 mg/5 mL solution 105 mg PO DAILY RF: 0 Lyrica 20 MG/1 ML solution 100 mg PO BID RF: 0 PROVENTIL HFA 18 GM HFA.AER.AD 2 puff Inhalation Q 4-6 HRS RF: 0 Ibuprofen 800 MG tablet 800 mg PO Q8H PRN PRNRF: 0 alprazolam 0.5 MG tablet 0.5 mg PO BID PRN (Reason: Anxiety) RF: 0 trazodone 100 MG tablet 200 mg PO HS RF: 0 Discharge Instructions Instructions: Doxycycline (By mouth), Laceration (ED), Cellulitis (ED) Additional Instructions: Please return immediately to the emergency department if you develop any new or worsening symptoms or if you become otherwise concerned. It is extremely important that you make an appointment to be seen in follow-up for this visit by your primary care doctor as soon as possible. Referrals: Marva Joyner [Primary Care Provider] - Medical Decision Making Jodee Gunter is a 48 y/o woman with history of arthritis, anxiety, GERD, opiate drug use now on methadone who presented to the emergency department with redness around the laceration that was repaired yesterday here. On exam patient is well and nontoxic appearing. There is approximate 1.5 cm of erythema surrounding her laceration, with sutures clean dry and intact. There is no wound dehiscence. Concern for possible cellulitis. Location and nature of wound is concerning for self-inflicted wound. Patient was seen here by mental health for this yesterday. Patient today denies any suicidality. Quit should be I care, who are reported that patient had no foreign body but did have corneal abrasion on exam and was started on steroid/antibiotic drops. Exam/history is not consistent with glaucoma, endophthalmitis, sepsis, abscess, other acute emergent life-threatening process. Plan for doxycycline for celluli tis. I had a lengthy discussion with the patient regarding return to emergency department precautions, home care, and importance of outpatient follow-up with PCP. Patient was discharged home with clear plan for outpatient follow-up. Patient verbalized understanding the plan was amenable. All questions were answered. Medical Records Medical records reviewed: Yes I reviewed the patient's medical records. HPI General Mode of arrival: ambulatory . Date/Time Provider Initiated Documentation: 07/29/18 14:47 . Limitations to Documentation: no limitations . Information obtained by: patient, RN notes reviewed and old records reviewed . HPI Narrative: Jodee Gunter is a 48 y/o woman with history of opiate drug use now on methadone, GERD, anxiety, arthritis presenting to the emergency department with redness around a repaired laceration. Patient reports that she was seen here yesterday for wound to her right anterior wrist. She states that yesterday she cut it on a broken cup. Stitches were placed. Patient reports that she woke up this morning and there seemed to be some redness around the area and she was concerned, thus bring her to the emergency department. No drainage or swelling. She has been taking Tylenol and Motrin at home for pain in her wrist. Patient denies any other pain, other than a foreign body sensation in her right eye since yesterday with watery discharge for which she was seen at [facility] this morning. She reports that symptoms are unchanged since yesterday. She was diagnosed with corneal abrasion and discharged on antibiotic/steroid drops per my discussion with [facility]. She denies deep eye pain or vision changes. No fever, no vomiting, no diarrhea, no shortness of breath, no cough. She denies any suicidality. Related Data Home Medications Medication Instructions Recorded Confirmed trazodone 200 mg PO HS 09/11/16 07/29/18 Ibuprofen 800 mg PO Q8H PRN PRN 12/26/16 07/29/18 Lyrica 100 mg PO BID ml 04/05/17 07/29/18 Proventil Hfa 2 puff INHALATION Q 4-6 HRS 04/05/17 07/29/18 inhaler methadone 10 mg/5 mL oral solution 105 mg PO DAILY ml 01/07/18 07/29/18 alprazolam 0.5 mg PO BID PRN 07/29/18 07/29/18 doxycycline hyclate 100 mg PO BID #19 tab 07/29/18 Previous Rx's Medication Instructions Recorded doxycycline hyclate 100 mg PO BID #19 tab 07/29/18 Allergies Allergy/AdvReac Type Severity Reaction Status Date / Time cephalexin monohydrate Allergy Intermediate Skin Rash Verified 07/28/18 14:57 [From Keflex] zaleplon [From Sonata] Allergy Unknown Verified 07/28/18 14:57 oxycodone HCl Allergy Verified 07/28/18 14:57 [From OxyContin] buspirone AdvReac Unknown Verified 07/28/18 14:57 sertraline HCl [From Zoloft] AdvReac Unknown Verified 07/28/18 14:57 General Stated Complaint: EyeProblem LIO: 5 Review of Systems Review of Systems Constitutional: denies fevers Eyes: Reports mild superficial eye burning without deep eye pain or blurry vision ENT: denies facial pain, dental pain, sore throat Cardiovascular: denies chest pain Respiratory: denies SOB, cough GI: denies abdominal pain, vomiting, diarrhea : denies flank pain MSK: denies back pain, neck pain, arthralgias, myalgias Skin: Reports redness around repaired laceration Neuro: denies headaches [facility] Medical History Panic attacks (Acute 08/04/14) Altered mental status (Acute 06/08/14) Mixed, or nondependent drug abuse (Acute 06/08/14) Anxiety (Chronic) Panic disorder (Chronic) Endometriosis (Chronic) History of colonic polyps (Chronic) Chronic neck pain (Chronic) Tobacco dependence (Chronic) Hepatitis C (Chronic) Noncompliance (Chronic) Encephalopathy acute (Acute 06/08/14) Abnormal LFTs (Acute) Abnormal mammogram (Acute) Back pain with left-sided radiculopathy (Acute) Breast mass in female (Acute) Cerumen impaction (Acute) Cerumen impaction (Acute) Constipation (Acute) Dizziness (Acute) Fatigue (Acute) Functional injury to cervical spinal cord (Acute) Irritability (Acute) Muscle herniation (Acute) Muscle herniation (Acute) Pain of both breasts (Acute) Paresthesia (Acute) Rib pain on right side (Acute) Acute encephalopathy Altered mental status Anxiety Benzodiazepine overdose Borderline personality disorder Cervical spondylosis Cervicalgia Chronic neck pain Chronic pain Combinations of opioid type drug with any other drug dependence, in remission Depression Drug induced constipation Endometriosis Female rectocele without uterine prolapse First degree AV block Hepatitis C Hot flashes Hx of colonic polyps Joint swelling Laceration of wrist Leg mass Localized swelling on hand Low back pain Memory impairment Mixed, or nondependent drug abuse, continuous Muscle herniation Opioid dependence Palpitations Panic attacks Panic disorder Right shoulder pain Tobacco abuse UTI (urinary tract infection) Social History Smoking/Tobacco Use Status: Current every day Tobacco Type: e-cigarettes Alcohol Intake: current Drug use: Never Substance use type: does not use Number of Children: 2 What type of physical activity do you participate in: none Do you feel safe at home: Yes Do you feel safe in your relationship?: Yes Exam Narrative Exam Narrative: Constitutional: well and [id number], pleasant, co nversing normally HENT: head atraumatic/normocephalic/normal inspection, mucous membranes moist Eyes: conjunctiva normal/sclera normal on left, conjunctiva with fluorescein stain on right, pupils 3mm b/l Neck: no stridor, normal ROM, trachea midline Resp: normal work of breathing Cardio: normal rate, normal rhythm Skin: warm, dry, normal color, no rash Neuro: alert, not altered, grossly non-focal, normal tone Ext: Right anterior wrist with laceration, stitches intact, no edema, no fluctuance, no drainage. Approximately 1.5 cm surrounding erythema Psych: normal mood, normal affect, normal behavior Course Vital Signs Temperature 36.5 C 07/29/18 14:41 Pulse 84 07/29/18 14:41 Respiratory Rate 16 07/29/18 14:41 Blood Pressure 109/70 07/29/18 14:41 Pulse Oximetry 93 L 07/29/18 14:41 Temperature 36.5 C 07/29/18 14:41 Temperature Source Temporal Artery Scan 07/29/18 14:41 Pulse 84 07/29/18 14:41 Respiratory Rate 16 07/29/18 14:41 Blood Pressure 109/70 07/29/18 14:41 Pulse Oximetry 93 L 07/29/18 14:41 Oxygen Delivery Method Room Air 07/29/18 14:41 Oxygen Flow Rate 0 07/29/18 14:41 Pain Level 9 07/29/18 14:41
[2018-07-29] MEDS: Doxycycline Hyclate 100 MG CAP PO (15:34)
[2018-07-29] MEDS: Bacitracin 1 PACKET (15:40)
== END 2018-07-29 15:43 | disposition home or self-care (01) ==
PROVIDERS: Emergency Provider Student in an Organized Health Care Education/Training Program; PCP Nurse Practitioner Family
DX: L03.113 Cellulitis of right upper limb (principal); S61.511D Laceration without foreign body of right wrist, subsequent encounter; X78.1XXD Intentional self-harm by knife, subsequent encounter

== ENCOUNTER 2018-08-01 11:16 | Outpatient (CLI) | payer MEDICAID, SELFPAY ==
[2018-08-01 11:46] LABS: Mean Corp. HGB Concentration 32.3 g/dL (32.0-36.0); Mean Corpuscular Hemoglobin 28.5 pg (27.0-33.0); Mean Corpuscular Volume 88.3 fL (80-95); Mean Platelet Volume 8.6 fL (8.0-11.0); Platelet Count 221 x1000/uL (130-400); RBC 3.51 m/cumm (4.00-5.20); RBC Distribution Width 14.3 % (11.7-14.6); White Blood Cell Count 3.33 k/cumm (4.4-10.8)
[2018-08-01 12:30] LABS: Iron 61 ug/dL (50-175); Total Iron Binding Capacity 300 ug/dL (250-450); Transferrin Sat 20 % (15-50)
[2018-08-01 12:46] LABS: ALT 18 U/L (12-78); AST 15 U/L (15-37); Albumin 3.6 g/dL (3.4-5.0); Alkaline Phosphatase 91 U/L (46-116); Anion Gap 6.5 mmol/L (3-11); BUN 8 mg/dL (7-18); Bilirubin, Total 0.2 mg/dL (0.2-1.0); CO2 31.5 mmol/L (21.0-32.0); CREATININE 0.87 mg/dL (0.55-1.02); Chloride 103 mmol/L (98-107); Cholesterol 255 mg/dL (50-200); Ferritin 63 ng/mL (8-388); Glucose 86 mg/dL (70-100); HDL Cholesterol 44 mg/dL (40-60); LDL CHOLESTEROL 170 mg/dL (<100); Potassium 4.7 mmol/L (3.5-5.1); Sodium 141 mmol/L (136-145); TSH (W/Ref FT4) 2.36 uIU/mL (0.358-3.74); Total Protein 7.2 g/dL (6.4-8.2); Triglyceride 179 mg/dL (30-150)
== END 2018-08-01 11:36 ==
PROVIDERS: PCP Nurse Practitioner Family; Visit Provider Nurse Practitioner Family
DX: D64.9 Anemia, unspecified (principal); I44.0 Atrioventricular block, first degree
CPT/HCPCS: 36415; 80053; 80061; 83721; 85027; 82728; 83540; 83550; 84443

== ENCOUNTER 2018-08-09 16:18 | Emergency (ER) | payer MEDICAID, SELFPAY ==
[2018-08-09 16:27] VITALS: BP 98/68; PULSE 77; RESP 16; TEMP 36.6; O2SAT 97
--- NOTE | 2018-08-09 16:35 | ED.GENADUL_ITS ---
Discharge Plan Disposition Patient Disposition: HOME Condition: Stable Discharge Details Chief Complaint: RespSymp Clinical Impression: Bronchitis Primary Care Provider: Marva Joyner ED Provider: Scott Ryder Home Meds and New Rx's Prescriptions: New levofloxacin 750 mg tablet 750 mg PO DAILY Qty: 5 RF: 0 Continued methadone 10 mg/5 mL solution 105 mg PO DAILY RF: 0 Lyrica 20 MG/1 ML solution 100 mg PO BID RF: 0 PROVENTIL HFA 18 GM HFA.AER.AD 2 puff Inhalation Q 4-6 HRS RF: 0 Ibuprofen 800 MG tablet 800 mg PO Q8H PRN PRNRF: 0 alprazolam 0.5 MG tablet 0.5 mg PO BID PRN (Reason: Anxiety) RF: 0 trazodone 100 MG tablet 200 mg PO HS RF: 0 Discontinued doxycycline hyclate 100 mg tablet 100 mg PO BID Qty: 19 RF: 0 Discharge Instructions Instructions: Acute Bronchitis (ED) Additional Instructions: if not better in a week see your primary care provider if you feel you are becoming more ill or having worsening shortness of breath return to the emergency department Medical Decision Making 48 yo female who states she has a hx of asthma/copd comes in with 2 weeks of worsening cough that is intermittently producitve. Dneies chest pain or prsesure, leg swelling. She denies recent travel. She is speaking in full sentences with intermittent cough. She has wheezing bilaterally in the apices and lower lobes. I suspect copd exacerbation vs pna, I recommended that we do labs and imaging and also nebs, steroids and abx but she declined all of this and just wants the abx. She has the capacity to make her own decisions and understands the risks of missing a pna including and disability. She also declines to have steroids as they make her feel jittery per pt. I will prescribe the abx to cover for an early pna and advised f/u with pcp and return if worsening/she changes her mind of note she had sutures placed to her wrist a week ago and removed them on her own. She also had abx for apossible skin infection with them but she stopped them after several days as the redness improved. She has no redness of the wound and it is well healed now. She denies si/hi Differential Diagnosis pna, copd, bronchitis HPI General Mode of arrival: ambulatory . Date/Time Provider Initiated Documentation: 08/09/18 16:19 . Limitations to Documentation: no limitations . Information obtained by: patient . History of Present Illness 48 year old F presents to the emergency department with the chief complaint of cough, described as moderate, Patient started experiencing this week(s) (2) and it has been intermittent. No relieving factors improve symptom(s), No ex acerbating factors reported . Patient did receive the following treatments prior to arrival, none Related Data Home Medications Medication Instructions Recorded Confirmed trazodone 200 mg PO HS 09/11/16 08/09/18 Ibuprofen 800 mg PO Q8H PRN PRN 12/26/16 08/09/18 Lyrica 100 mg PO BID ml 04/05/17 08/09/18 Proventil Hfa 2 puff INHALATION Q 4-6 HRS 04/05/17 08/09/18 inhaler methadone 10 mg/5 mL oral solution 105 mg PO DAILY ml 01/07/18 08/09/18 alprazolam 0.5 mg PO BID PRN 07/29/18 08/09/18 levofloxacin 750 mg PO DAILY #5 tab 08/09/18 Previous Rx's Medication Instructions Recorded levofloxacin 750 mg PO DAILY #5 tab 08/09/18 Allergies Allergy/AdvReac Type Severity Reaction Status Date / Time cephalexin monohydrate Allergy Intermediate Skin Rash Verified 08/09/18 16:29 [From Keflex] zaleplon [From Sonata] Allergy Unknown Verified 08/09/18 16:29 oxycodone HCl Allergy Verified 08/09/18 16:29 [From OxyContin] buspirone AdvReac Unknown Verified 08/09/18 16:29 sertraline HCl [From Zoloft] AdvReac Unknown Verified 08/09/18 16:29 General LIO: 5 Review of Systems Review of Systems All systems reviewed & are unremarkable except as noted in HPI and below Constitutional Denies weakness Eyes Denies loss of vision ENT Denies change in voice Cardiovascular Denies chest pain and Denies dyspnea Respiratory Denies dyspnea Gastrointestinal Denies abdominal pain, Denies nausea and Denies vomiting Musculoskeletal Denies joint swelling Neurologic Denies loss of vision and Denies weakness Psychiatric Denies depression Endocrine Denies cold intolerance and Denies heat intolerance PFSH Medical History Panic attacks (Acute 08/04/14) Altered mental status (Acute 06/08/14) Mixed, or nondependent drug abuse (Acute 06/08/14) Anxiety (Chronic) Panic disorder (Chronic) Endometriosis (Chronic) History of colonic polyps (Chronic) Chronic neck pain (Chronic) Tobacco dependence (Chronic) Hepatitis C (Chronic) Noncompliance (Chronic) Encephalopathy acute (Acute 06/08/14) Abnormal LFTs (Acute) Abnormal mammogram (Acute) Back pain with left-sided radiculopathy (Acute) Breast mass in female (Acute) Cerumen impaction (Acute) Cerumen impaction (Acute) Constipation (Acute) Dizziness (Acute) Fatigue (Acute) Functional injury to cervical spinal cord (Acute) Irritability (Acute) Muscle herniation (Acute) Muscle herniation (Acute) Pain of both breasts (Acute) Paresthesia (Acute) Rib pain on right side (Acute) Acute encephalopathy Altered mental status Anxiety Benzodiazepine overdose Borderline personality disorder Cervical spondylosis Cervicalgia Chronic neck pain Chronic pain Combinations of opioid type drug with any other drug dependence, in remission Depression Drug induced constipation Endometriosis Female rectocele without uterine prolapse First degree AV block Hepatitis C Hot flashes Hx of colonic polyps Joint swelling Laceration of wrist Leg mass Localized swelling on hand Low back pain Memory impairment Mixed, or nondependent drug abuse, continuous Muscle herniation Opioid dependence Palpitations Panic attacks Panic disorder Right shoulder pain Tobacco abuse UTI (urinary tract infection) Surgical History H/O surgical procedure (Chronic) H/O spinal fusion (Acute) Hx laparoscopic cholecystectomy (Acute) S/P wrist surgery (Acute) Abdominal hysterectomy Arthroscopy, Shoulder Colonoscopy - MAC (01/16/17) Lorne Fundoplication Social History Smoking/Tobacco Use Status: Current every day Tobacco Type: e-cigarettes Alcohol Intake: current Drug use: Never Substance use type: does not use Number of Children: 2 What type of physical activity do you participate in: none Do you feel safe at home: Yes Do you feel safe in your relationship?: Yes Exam Const General: no acute distress Orientation: alert HENMT Head: normal to inspection Ears: external ears normal General nose exam: external nose normal Mouth: moist mucous membranes Eyes General: appearance normal, both eyes and all related structures Neck Neck: normal visual inspection Resp Effort & Inspection: normal respiratory effort and able to speak in complete sentences Cardio Rate: regular rate Skin General skin exam: no rashes or lesions noted Neuro General: alert and oriented x3 Extrem General: normal to inspection Psych Mental Status: mental status grossly normal
== END 2018-08-09 16:45 | disposition home or self-care (01) ==
LOC: ER 16:38
PROVIDERS: Emergency Provider Emergency Medicine; PCP Nurse Practitioner Family
DX: J20.9 Acute bronchitis, unspecified (principal)
CPT/HCPCS: 99283

== ENCOUNTER 2018-09-25 15:48 | Emergency (ER) | payer MEDICAID, SELFPAY ==
[2018-09-25 15:53] VITALS: BP 102/71; PULSE 106; RESP 16; TEMP 36.7; O2SAT 93
[2018-09-25] MEDS: Acetaminophen 500 MG TAB 1000 MG PO (16:20)
--- NOTE | 2018-09-25 16:20 | W.ED.GENAD ---
Discharge Plan Disposition Patient Disposition: HOME Condition: Stable Discharge Details Chief Complaint: Orthopedic Clinical Impression: Knee pain, right Primary Care Provider: Mariaelena Hoffman ED Provider: Scott Ryder Home Meds and New Rx's Prescriptions: New ibuprofen 800 mg tablet 800 mg PO TID PRN (Reason: pain) Qty: 30 RF: 0 Continued methadone 10 mg/5 mL solution 105 mg PO DAILY RF: 0 Lyrica 20 MG/1 ML solution 100 mg PO BID RF: 0 PROVENTIL HFA 18 GM HFA.AER.AD 2 puff Inhalation Q 4-6 HRS RF: 0 Ibuprofen 800 MG tablet 800 mg PO Q8H PRN PRNRF: 0 alprazolam 0.5 MG tablet 0.5 mg PO BID PRN (Reason: Anxiety) RF: 0 trazodone 100 MG tablet 200 mg PO HS RF: 0 Discharge Instructions Instructions: Knee Pain (ED) Additional Instructions: follow up with your primary care provider within 1-2 weeks if you have new symptoms such as fevers or leg swelling return to the emergency department Medical Decision Making pt comes in with several months of anterior and medial right knee pain. Denies trauma, fevers or other systemic symptoms. She has no swelling on exam of the knee with full rom, pain with palpation over the medial joint line, no leg swelling or calf pain, no warmth to the joint. I suspect either meniscus injury vs arthritis. Given lack of trauma, bearing weight and full rom doubt fx and do not feel xray indicated. No findigns on exam to suggest septic joint. Will have her f/u with her pcp and return precautions given Differential Diagnosis strain, meniscus injury arthritis HPI General Mode of arrival: ambulatory. Date/Time Provider Initiated Documentation: 09/25/18 16:01. Limitations to Documentation: no limitations. Information obtained by: patient. History of Present Illness 48 year old F presents to the emergency department with the chief complaint of right knee pain, described as moderate, Quality is described as aching, and is localized to the right and lower extremity. Patient reports no radiation. Patient started experiencing this month(s) (3) and it has been constant. Rest improves symptom(s), Movement worsens symptoms . Patient notes no other symptoms.. Patient did receive the following treatments prior to arrival, none Related Data Home Medications Medication Instructions Recorded Confirmed trazodone 200 mg PO HS 09/11/16 09/25/18 Ibuprofen 800 mg PO Q8H PRN PRN 12/26/16 09/25/18 Lyrica 100 mg PO BID ml 04/05/17 09/25/18 Proventil Hfa 2 puff INHALATION Q 4-6 HRS 04/05/17 09/25/18 inhaler methadone 10 mg/5 mL oral solution 105 mg PO DAILY ml 01/07/18 09/25/18 alprazolam 0.5 mg PO BID PRN 07/29/18 09/25/18 ibuprofen 800 mg PO TID PRN #30 tab 09/25/18 Previous Rx's Medication Instructions Recorded ibuprofen 800 mg PO TID PRN #30 tab 09/25/18 Allergies Allergy/AdvReac Type Severity Reaction Status Date / Time cephalexin monohydrate Allergy Intermediate Skin Rash Verified 09/25/18 15:57 [From Keflex] zaleplon [From Sonata] Allergy Unknown Verified 09/25/18 15:57 oxycodone HCl Allergy Verified 09/25/18 15:57 [From OxyContin] buspirone AdvReac Unknown Verified 09/25/18 15:57 sertraline HCl [From Zoloft] AdvReac Unknown Verified 09/25/18 15:57 General Stated Complaint: Orthopedic LIO: 4 Review of Systems Review of Systems All systems reviewed & are unremarkable except as noted in HPI and below Constitutional Denies chills and Denies fever(s) Cardiovascular Denies chest pain and Denies dyspnea Respiratory Denies cough and Denies dyspnea Gastrointestinal Denies abdominal pain, Denies nausea and Denies vomiting Musculoskeletal Denies joint swelling PFSH Social History Smoking/Tobacco Use Status: Current every day Tobacco Type: e-cigarettes Alcohol Intake: current Drug use: Never Substance use type: does not use Number of Children: 2 What type of physical activity do you participate in: none Do you feel safe at home: Yes Do you feel safe in your relationship?: Yes Exam Const General: no acute distress Orientation: alert HENMT Head: normal to inspection Ears: external ears normal General nose exam: external nose normal Mouth: moist mucous membranes Eyes General: appearance normal, both eyes and all related structures Neck Neck: normal visual inspection Resp Effort & Inspection: normal respiratory effort and able to speak in complete sentences Cardio Rate: regular rate Skin General skin exam: no rashes or lesions noted Neuro General: alert and oriented x3 Extrem General: normal to inspection Psych Mental Status: mental status grossly normal Course Vital Signs Temperature 36.7 C 09/25/18 15:53 Pulse 106 H 09/25/18 15:53 Respiratory Rate 16 09/25/18 15:53 Blood Pressure 102/71 09/25/18 15:53 Pulse Oximetry 93 L 09/25/18 15:53 Temperature 36.7 C 09/25/18 15:53 Temperature Source Skin 09/25/18 15:53 Pulse 106 H 09/25/18 15:53 Respiratory Rate 16 09/25/18 15:53 Respiratory Effort 09/25/18 15:53 Blood Pressure 102/71 09/25/18 15:53 Blood Pressure Position Sitting 09/25/18 15:53 Pulse Oximetry 93 L 09/25/18 15:53 Oxygen Delivery Method Room Air 09/25/18 15:53 Oxygen Flow Rate 0 09/25/18 15:53 Pain Level 8 09/25/18 15:53
--- NOTE | 2018-09-25 16:23 | ED.GENADUL_ITS ---
Discharge Plan Disposition Patient Disposition: HOME Condition: Stable Discharge Details Chief Complaint: Orthopedic Clinical Impression: Knee pain, right Primary Care Provider: Mariaelena Hoffman ED Provider: Scott Ryder Home Meds and New Rx's Prescriptions: New ibuprofen 800 mg tablet 800 mg PO TID PRN (Reason: pain) Qty: 30 RF: 0 Continued methadone 10 mg/5 mL solution 105 mg PO DAILY RF: 0 Lyrica 20 MG/1 ML solution 100 mg PO BID RF: 0 PROVENTIL HFA 18 GM HFA.AER.AD 2 puff Inhalation Q 4-6 HRS RF: 0 Ibuprofen 800 MG tablet 800 mg PO Q8H PRN PRNRF: 0 alprazolam 0.5 MG tablet 0.5 mg PO BID PRN (Reason: Anxiety) RF: 0 trazodone 100 MG tablet 200 mg PO HS RF: 0 Discharge Instructions Instructions: Knee Pain (ED) Additional Instructions: follow up with your primary care provider within 1-2 weeks if you have new symptoms such as fevers or leg swelling return to the emergency department Medical Decision Making pt comes in with several months of anterior and medial right knee pain. Denies trauma, fevers or other systemic symptoms. She has no swelling on exam of the knee with full rom, pain with palpation over the medial joint line, no leg swelling or calf pain, no warmth to the joint. I suspect either meniscus injury vs arthritis. Given lack of trauma, bearing weight and full rom doubt fx and do not feel xray indicated. No findigns on exam to suggest septic joint. Will have her f/u with her pcp and return precautions given Differential Diagnosis strain, meniscus injury arthritis HPI General Mode of arrival: ambulatory . Date/Time Provider Initiated Documentation: 09/25/18 16:01 . Limitations to Documentation: no limitations . Information obtained by: patient . History of Present Illness 48 year old F presents to the emergency department with the chief complaint of right knee pain, described as moderate, Quality is described as aching, and is localized to the right and lower extremity. Patient reports no radiation. Patient started experiencing this month(s) (3) and it has been constant. Re st improves symptom(s), Movement worsens symptoms . Patient notes no other symptoms.. Patient did receive the following treatments prior to arrival, none Related Data Home Medications Medication Instructions Recorded Confirmed trazodone 200 mg PO HS 09/11/16 09/25/18 Ibuprofen 800 mg PO Q8H PRN PRN 12/26/16 09/25/18 Lyrica 100 mg PO BID ml 04/05/17 09/25/18 Proventil Hfa 2 puff INHALATION Q 4-6 HRS 04/05/17 09/25/18 inhaler methadone 10 mg/5 mL oral solution 105 mg PO DAILY ml 01/07/18 09/25/18 alprazolam 0.5 mg PO BID PRN 07/29/18 09/25/18 ibuprofen 800 mg PO TID PRN #30 tab 09/25/18 Previous Rx's Medication Instructions Recorded ibuprofen 800 mg PO TID PRN #30 tab 09/25/18 Allergies Allergy/AdvReac Type Severity Reaction Status Date / Time cephalexin monohydrate Allergy Intermediate Skin Rash Verified 09/25/18 15:57 [From Keflex] zaleplon [From Sonata] Allergy Unknown Verified 09/25/18 15:57 oxycodone HCl Allergy Verified 09/25/18 15:57 [From OxyContin] buspirone AdvReac Unknown Verified 09/25/18 15:57 sertraline HCl [From Zoloft] AdvReac Unknown Verified 09/25/18 15:57 General Stated Complaint: Orthopedic LIO: 4 Review of Systems Review of Systems All systems reviewed & are unremarkable except as noted in HPI and below Constitutional Denies chills and Denies fever(s) Cardiovascular Denies chest pain and Denies dyspnea Respiratory Denies cough and Denies dyspnea Gastrointestinal Denies abdominal pain, Denies nausea and Denies vomiting Musculoskeletal Denies joint swelling PFSH Social History Smoking/Tobacco Use Status: Current every day Tobacco Type: e-cigarettes Alcohol Intake: current Drug use: Never Substance use type: does not use Number of Children: 2 What type of physical activity do you participate in: none Do you feel safe at home: Yes Do you feel safe in your relationship?: Yes Exam Const General: no acute distress Orientation: alert HENMT Head: normal to inspection Ears: external ears normal General nose exam: external nose normal Mouth: moist mucous membranes Eyes General: appearance normal, both eyes and all related structures Neck Neck: normal visual inspection Resp Effort & Inspection: normal respiratory effort and able to speak in complete sentences Cardio Rate: regular rate Skin General skin exam: no rashes or lesions noted Neuro General: alert and oriented x3 Extrem General: normal to inspection Psych Mental Status: mental status grossly normal Course Vital Signs Temperature 36.7 C 09/25/18 15:53 Pulse 106 H 09/25/18 15:53 Respiratory Rate 16 09/25/18 15:53 Blood Pressure 102/71 09/25/18 15:53 Pulse Oximetry 93 L 09/25/18 15:53 Temperature 36.7 C 09/25/18 15:53 Temperature Source Skin 09/25/18 15:53 Pulse 106 H 09/25/18 15:53 Respiratory Rate 16 09/25/18 15:53 Respiratory Effort 09/25/18 15:53 Blood Pressure 102/71 09/25/18 15:53 Blood Pressure Position Sitting 09/25/18 15:53 Pulse Oximetry 93 L 09/25/18 15:53 Oxygen Delivery Method Room Air 09/25/18 15:53 Oxygen Flow Rate 0 09/25/18 15:53 Pain Level 8 09/25/18 15:53
--- NOTE | 2018-09-25 16:46 | NUTRITION ---
patient fitted for crutch teaching and return demonstration provided by patient
== END 2018-09-25 20:57 | disposition home or self-care (01) ==
PROVIDERS: Emergency Provider Emergency Medicine; PCP Family Medicine
DX: M25.561 Pain in right knee (principal)
CPT/HCPCS: 29505; 99283; 99282; E0114; L1820

== ENCOUNTER 2018-10-02 10:53 | Emergency (ER) | payer MEDICAID, SELFPAY ==
[2018-10-02 11:03] VITALS: BP 117/46; PULSE 94; RESP 16; TEMP 36.3; O2SAT 98
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
== END 2018-10-02 11:45 | disposition home or self-care (01) ==
LOC: ER 11:36
PROVIDERS: Emergency Provider Physician Assistant; PCP Family Medicine
DX: T24.131A Burn of first degree of right lower leg, initial encounter (principal); T31.0 Burns involving less than 10% of body surface; X17.XXXA Contact with hot engines, machinery and tools, initial encounter
CPT/HCPCS: 16000

== ENCOUNTER 2018-10-02 18:17 | Emergency (ER) | payer MEDICAID, SELFPAY ==
[2018-10-02 18:21] VITALS: BP 110/70; PULSE 78; RESP 18; TEMP 36.3; O2SAT 98
[2018-10-02 18:59] LABS: Bilirubin Negative (Negative); Blood Negative (Negative); Clarity Clear; Glucose Negative (Negative); Ketones Negative (Negative); Leukocyte Esterase Negative (Negative); Nitrite Negative (Negative); Specific Gravity >= 1.030 (1.005-1.025); Urobilinogen 0.2 EU/dL (Up TO 0.2); pH 5.5 (5-8)
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
--- NOTE | 2018-10-02 20:27 | ED.GENADUL_ITS ---
Discharge Plan Disposition Patient Disposition: HOME Condition: Stable Discharge Details Chief Complaint: Urinary Clinical Impression: Bacterial vaginosis Primary Care Provider: Mariaelena Hoffman ED Provider: Jayden Goode Home Meds and New Rx's Prescriptions: New metronidazole 500 mg tablet 500 mg PO BID 7 Days Qty: 14 RF: 0 Continued methadone 10 mg/5 mL solution 105 mg PO DAILY RF: 0 Lyrica 20 MG/1 ML solution 100 mg PO BID RF: 0 PROVENTIL HFA 18 GM HFA.AER.AD 2 puff Inhalation Q 4-6 HRS RF: 0 Ibuprofen 800 MG tablet 800 mg PO Q8H PRN PRNRF: 0 alprazolam 0.5 MG tablet 0.5 mg PO BID PRN (Reason: Anxiety) RF: 0 ibuprofen 800 mg tablet 800 mg PO TID PRN (Reason: pain) Qty: 30 RF: 0 trazodone 100 MG tablet 200 mg PO HS RF: 0 Discharge Instructions Instructions: Bacterial Vaginosis (ED) Additional Instructions: While on antibiotic for your infection please refrain from any alcohol intake including 1 day after he stopped the medication. Please take the medication until fully completed and feel free to return to the emergency department for any new or significant worsening of symptoms otherwise you should follow-up with [facility] in 1 week for reassessment and to ensure that you are improving. Referrals: [facility] [Provider Group] - 1 week (For reassessment of your symptoms) Discharge Data Discharge Date/Time-TO BE ENTERED AT DEPARTURE: 10/02/18 22:26 Medical Decision Making Patient presenting to the emergency department for chief complaint of painful urination that began 1 hour ago. Upon further questioning patient does report that she has been having vaginal discharge for the past couple days which has been on. Patient denies any chance of sexually transmitted disease or infection. Physical exam shows a soft abdomen with mild suprapubic tenderness, unremarkable vital signs, vaginal exam was done with staff submarine warfare officer at bedside and does show whitish discharge from the vaginal canal, difficult visualizing the entire vaginal canal and cervical and due to discomfort with even inserting the speculum and manipulation of the canal. No significant adnexal palpable abnormality was noted but continued discomfort with exam. Swabs were obtained a nd sent. Did discuss with patient risk versus benefit of prophylactic treatment of sexually transmitted infection given that just after exam she reported that she has had painful sex with her significant other for the past month. Patient stated that she wanted prophylactic treatment for STI which I feel is reasonable. Patient does have Keflex allergy but states that she has had ceftriaxone before with no allergic reaction. Patient given azithromycin and ceftriaxone pending swab results. Urinalysis was reviewed and shows concentration but otherwise no signs of infection. Vaginal path screen showed JENI POSITIVE GARDNERELLA POSITIVE Patient started on metronidazole 500 mg twice daily and recommended to use [id number] Monistat . She was encouraged to follow-up with [facility] in 1 week for reassessment. Return precautions were discussed. After discussion of diagnosis and plan of care patient has no further needs, questions, or concerns and states clear understanding to return to the emergency department for any worsening symptoms. HPI General Mode of arrival: ambulatory . Date/Time Provider Initiated Documentation: 10/02/18 19:39 . Limitations to Documentation: no limitations . Information obtained by: patient, RN notes reviewed and old records reviewed . History of Present Illness 48 year old F presents to the emergency department with the chief complaint of Painful urination, described as moderate, with intensity rated at 6. Quality is described as sharp, Patient started experiencing this hour(s) (1) and it has been constant. Patient notes no other symptoms.. Patient did receive the following treatments prior to arrival, none Related Data Home Medications Medication Instructions Recorded Confirmed trazodone 200 mg PO HS 09/11/16 10/02/18 Ibuprofen 800 mg PO Q8H PRN PRN 12/26/16 10/02/18 Lyrica 100 mg PO BID ml 04/05/17 10/02/18 Proventil Hfa 2 puff INHALATION Q 4-6 HRS 04/05/17 10/02/18 inhaler methadone 10 mg/5 mL oral solution 105 mg PO DAILY ml 01/07/18 10/02/18 alprazolam 0.5 mg PO BID PRN 07/29/18 10/02/18 ibuprofen 800 mg PO TID PRN #30 tab 09/25/18 10/02/18 metronidazole 500 mg PO BID 7 Days #14 tab 10/02/18 Previous Rx's Medication Instructions Recorded ibuprofen 800 mg PO TID PRN #30 tab 09/25/18 metronidazole 500 mg PO BID 7 Days #14 tab 10/02/18 Allergies Allergy/AdvReac Type Severity Reaction Status Date / Time cephalexin monohydrate Allergy Intermediate Skin Rash Verified 09/25/18 15:57 [From Keflex] zaleplon [From Sonata] Allergy Unknown Verified 09/25/18 15:57 oxycodone HCl Allergy Verified 09/25/18 15:57 [From OxyContin] buspirone AdvReac Unknown Verified 09/25/18 15:57 sertraline HCl [From Zoloft] AdvReac Unknown Verified 09/25/18 15:57 General Stated Complaint: Urinary LIO: 4 Review of Systems Constitutional Denies body ache(s), Denies chills, Denies fever(s) and Denies malaise Gastrointestinal Reports abdominal pain (Suprapubic), Denies nausea and Denies vomiting Genitourinary Reports as per HPI, Denies abnormal vaginal bleeding, Denies hematuria, Denies urinary frequency, Denies difficulty voiding, Denies genital pruritis, Denies genital lesions, Reports dyspareunia, Reports dysuria, Reports pelvic pain, Reports urinary urgency and Reports vaginal discharge Integumentary/Breasts Denies rash [facility] Medical History Panic attacks (Acute 08/04/14) Altered mental status (Acute 06/08/14) Mixed, or nondependent drug abuse (Acute 06/08/14) Anxiety (Chronic) Panic disorder (Chronic) Endometriosis (Chronic) History of colonic polyps (Chronic) Chronic neck pain (Chronic) Tobacco dependence (Chronic) Hepatitis C (Chronic) Noncompliance (Chronic) Encephalopathy acute (Acute 06/08/14) Abnormal LFTs (Acute) Abnormal mammogram (Acute) Back pain with left-sided radiculopathy (Acute) Breast mass in female (Acute) Cerumen impaction (Acute) Cerumen impaction (Acute) Constipation (Acute) Dizziness (Acute) Fatigue (Acute) Functional injury to cervical spinal cord (Acute) Irritability (Acute) Muscle herniation (Acute) Muscle herniation (Acute) Pain of both breasts (Acute) Paresthesia (Acute) Rib pain on right side (Acute) Acute encephalopathy Altered mental status Anxiety Benzodiazepine overdose Borderline personality disorder Cervical spondylosis Cervicalgia Chronic neck pain Chronic pain Combinations of opioid type drug with any other drug dependence, in remission Depression Drug induced constipation Endometriosis Female rectocele without uterine prolapse First degree AV block Hepatitis C Hot flashes Hx of colonic polyps Joint swelling Laceration of wrist Leg mass Localized swelling on hand Low back pain Memory impairment Mixed, or nondependent drug abuse, continuous Muscle herniation Opioid dependence Palpitations Panic attacks Panic disorder Right shoulder pain Tobacco abuse UTI (urinary tract infection) Surgical History H/O surgical procedure (Chronic) H/O spinal fusion (Acute) Hx laparoscopic cholecystectomy (Acute) S/P wrist surgery (Acute) Abdominal hysterectomy Arthroscopy, Shoulder Colonoscopy - MAC (01/16/17) Lorne Fundoplication Social History Smoking/Tobacco Use Status: Current every day Tobacco Type: e-cigarettes Alcohol Intake: current Drug use: Never Substance use type: does not use Number of Children: 2 What type of physical activity do you participate in: none Do you feel safe at home: Yes Do you feel safe in your relationship?: Yes Exam Const General: cooperative and no acute distress Orientation: alert, awake and oriented x3 Resp Effort & Inspection: normal respiratory effort and able to speak in complete sentences Auscultation: clear to auscultation bilaterally Cardio Rate: regular rate Rhythm: regular rhythm Heart Sounds: S1 normal and S2 normal GI Inspection: normal to inspection Palpation: soft, no hepatosplenomegaly, no guarding, no hepatomegaly, no hepatosplenomegaly and tender suprapubicly; not in the RLQ External Female Exam: external appearance normal and normal appearance of the urethra Speculum Exam - Vagina: abnormal vaginal discharge white, not erythematous and No vaginal bleeding Speculum Exam - Cervix: cervical tenderness Bimanual Exam- Vagina & Uterus: normal vaginal palpation and cervical tenderness Bimanual Exam- Adnexa, other: normal adnexae OB/External & Speculum: No vaginal bleeding Back/Spine/Pelvis Back: no CVA tenderness Neuro General: alert, awake and oriented x3 Extrem General: normal capillary refill Course Vital Signs Temperature 36.3 C L 10/02/18 18:21 Pulse 78 10/02/18 18:21 Respiratory Rate 18 10/02/18 18:21 Blood Pressure 110/70 10/02/18 18:21 Pulse Oximetry 98 10/02/18 18:21 Temperature 36.3 C L 10/02/18 18:21 Temperature Source Temporal Artery Scan 10/02/18 18:21 Pulse 78 10/02/18 18:21 Respiratory Rate 18 10/02/18 18:21 Respiratory Effort 10/02/18 18:23 Blood Pressure 110/70 10/02/18 18:21 Pulse Oximetry 98 10/02/18 18:21 Oxygen Delivery Method Room Air 10/02/18 18:21 Oxygen Flow Rate 0 10/02/18 18:21 Pain Level 0 10/02/18 18:21 Lab/Test Results Lab/Test Results: Laboratory Tests Range/Units 10/02/18 18:51 Urine Color (Yellow) Yellow Urine Clarity Clear Urine pH (5-8) 5.5 Ur Specific [place] (1.005-1.025) >= 1.030 H Urine Protein (Negative) mg/dL Negative Urine Ketones (Negative) mg/dL Negative Urine Blood (Negative) Negative Urine Nitrite (Negative) Negative Urine Bilirubin (Negative) Negative Urine Urobilinogen (Up TO 0.2) EU/dL 0.2 Ur Leukocyte Esterase (Negative) Negative Urine Glucose (Negative) mg/dL Negative
[2018-10-02] MEDS: cefTRIAXone 1 GM VIAL 0.25 GM IM (21:35)
[2018-10-02] MEDS: Azithromycin 250 MG TAB 500 MG PO (21:35)
[2018-10-02] MEDS: metroNIDAZOLE 500 MG TAB PO (22:26)
[2018-10-04 13:16] LABS: Chlamydia Result Negative; GC Result Negative; Specimen Description CERVIX
== END 2018-10-02 22:26 | disposition home or self-care (01) ==
PROVIDERS: Emergency Provider Nurse Practitioner Family; PCP Family Medicine
DX: B37.3 Candidiasis of vulva and vagina (principal)
CPT/HCPCS: 87491; 87591; 96372; 99284; 81003; 87480; 87510; 87660; J0696

== ENCOUNTER 2018-10-09 20:55 | Emergency (ER) | payer MEDICAID, SELFPAY ==
[2018-10-09 20:57] VITALS: BP 114/82; PULSE 130; RESP 24; TEMP 39; O2SAT 98
--- NOTE | 2018-10-09 20:58 | ED.GENADUL_ITS ---
Discharge Plan Disposition Patient Disposition: HOME Condition: Good Discharge Details Chief Complaint: Fever Clinical Impression: CAP (community acquired pneumonia) Primary Care Provider: Mariaelena Hoffman ED Provider: Donnell Wilson [place] Meds and New Rx's Prescriptions: New levofloxacin [Levaquin] 750 mg tablet 750 mg PO QHS Qty: 7 RF: 0 Continued methadone 10 mg/5 mL solution 105 mg PO DAILY RF: 0 Lyrica 20 MG/1 ML solution 100 mg PO BID RF: 0 PROVENTIL HFA 18 GM HFA.AER.AD 2 puff Inhalation Q 4-6 HRS RF: 0 alprazolam 0.5 MG tablet 0.5 mg PO BID PRN (Reason: Anxiety) RF: 0 ibuprofen 800 mg tablet 800 mg PO TID PRN (Reason: pain) Qty: 30 RF: 0 trazodone 100 MG tablet 200 mg PO HS RF: 0 Discharge Instructions Instructions: Levofloxacin (By mouth), Community Acquired Pneumonia (ED) Additional Instructions: Your work-up tonight suggest pneumonia as a cause of your fever, at least by CAT scan. Your laboratory studies looked okay. Your heart rate improved with fluids. You did receive Ativan, Toradol, Tylenol, Levaquin here. You need to follow-up with primary care next week. Return to the ED if you develop increasing difficulty breathing, chest pain, confusion, persistent high fever, vomiting, other concerns or problems. Referrals: Mariaelena Hoffman [Primary Care Provider] - Medical Decision Making Patient presents with fever and tachycardia with shakes that may be combination of chills and anxiety. There currently is no obvious source for her fever. She does not have any change in her chronic headache, neck pain, back pain. She has some shortness of breath and chest tightness but thinks it related to anxiety. She has no abdominal pain. Her burn does not appear to be infected at all. Patient denies current IV drug use. IV access by me with ultrasound guidance in the right basilic vein. Laboratory studies obtained. Tylenol and Toradol given for fever. Ativan given for anxiety. Fluids started with a total of 2 L of LR ordered. CT scan of the chest abdomen pelvis ordered as no obvious source for fever and patient is c omplaining of chest tightness and shortness of breath as well as some nausea with previous abdominal surgeries. 23:10 - Patient continues to remain tachycardic. She's still quite anxious. She is given a second dose of Ativan. Patient's white count is normal. She is typically neutropenic. Her anemia is stable. Her lactic acid is normal. Other labs pending. She has just gone for CT scan. 00:40 - Patient's heart rate has come down. Her vitals have remained normal otherwise. Her laboratory studies show that electrolytes, kidney function, liver function are all normal except for a low magnesium which is replaced IV. Troponin is negative. EKG eventually obtained which shows a sinus tachycardia at 103. Normal axis and intervals. No QT prolongation. Normal ST segments. Urinalysis is negative. Urine drug screen positive for methadone only. CT scan of the chest abdomen pelvis is being read as patchy consolidation in the right middle lobe consistent with infectious/inflammatory process. I have reengaged the patient and she denies significant cough. She has some intermittent shortness of breath. However, there is no other source of her fever. Her abdominal CT is negative. The burn does not appear infected and there is no associated cellulitis. Urine is not infected. She has a slight murmur that I can hear now that tachycardia resolved, however, she reports that this is old. Again she denies any recent IV drug abuse, she has a remote history of same. At this point it would appear that she has a community-acquired pneumonia. She has been on Flagyl recently. That was for bacterial vaginosis. Her pneumonia severity index puts her at a class II. Because of the recent antibiotics recommendation by Up to Date is a quinilone. She will therefore be started on Levaquin. She will be referred out to her primary care next week for follow-up. Return to ED for any change in mental status, increasing shortness of breath, chest pain, persistent high fevers, other concerns or problems. Medical Records Medical records reviewed: Yes I reviewed the patient's medical records. Lab Data Lab results reviewed: Yes I reviewed the patient's lab results. ECG Data Attestation: I personally reviewed and interpreted this ECG (s) as follows: Prior ECG tracings: not available for review Interpretation: Sinus tachycardia at 103 with normal axis and intervals. Normal QT segments. Normal ST segments. HPI General Mode of arrival: EMS . Date/Time Provider Initiated Documentation: 10/09/18 21:08 . Limitations to Documentation: no limitations . Information obtained by: patient, EMS, RN notes reviewed and old records reviewed . HPI Narrative: Patient presents by ambulance with fever, chills, nausea, general weakness. Patient reports 2 days ago had similar symptoms overnight. Seemed to feel okay the following day. Today continues to feel unwell but in a general nature. Tonight became acutely ill with fever, chills, shakes. She has recently been seen here and treated for a burn to her right calf as well as for bacterial vaginosis. She is actually still on the Flagyl apparently. She reports having some shortness of breath and chest tightness but cannot decide if that is related to anxiety or not. She denies having abdominal pain. She has chronic and unchanged neck and back pain. She has chronic headaches which are also unchanged. She has no neurologic symptoms. She has no urinary symptoms currently. She has no cough or URI symptoms. She has a history of IV drug abuse but denies such and reports being in remission on methadone. Related Data Home Medications Medication Instructions Recorded Confirmed trazodone 200 mg PO HS 09/11/16 10/02/18 Lyrica 100 mg PO BID ml 04/05/17 10/02/18 Proventil Hfa 2 puff INHALATION Q 4-6 HRS 04/05/17 10/02/18 inhaler methadone 10 mg/5 mL oral solution 105 mg PO DAILY ml 01/07/18 10/02/18 alprazolam 0.5 mg PO BID PRN 07/29/18 10/02/18 ibuprofen 800 mg PO TID PRN #30 tab 09/25/18 10/02/18 levofloxacin [Levaquin] 750 mg PO QHS #7 tab 10/10/18 Previous Rx's Medication Instructions Recorded ibuprofen 800 mg PO TID PRN #30 tab 09/25/18 levofloxacin [Levaquin] 750 mg PO QHS #7 tab 10/10/18 Allergies Allergy/AdvReac Type Severity Reaction Status Date / Time cephalexin monohydrate Allergy Intermediate Skin Rash Verified 09/25/18 15:57 [From Keflex] zaleplon [From Sonata] Allergy Unknown Verified 09/25/18 15:57 oxycodone HCl Allergy Verified 09/25/18 15:57 [From OxyContin] buspirone AdvReac Unknown Verified 09/25/18 15:57 sertraline HCl [From Zoloft] AdvReac Unknown Verified 09/25/18 15:57 General LIO: 4 Review of Systems Review of Systems 02/03 Review of Systems completed and is negative except as stated above in HPI (Systems reviewed: Const, Eyes, ENT, Resp, CV, GI, , MSK, Skin, Neuro) [facility] Medical History Noncompliance (Chronic) Abnormal LFTs (Chronic) Abnormal mammogram (Chronic) Anxiety (Chronic) Borderline personality disorder (Chronic) Breast mass in female (Chronic) Chronic neck pain (Chronic) Chronic pain (Chronic) Combinations of opioid type drug with any other drug dependence, in remission (Chronic) Depression (Chronic) Female rectocele without uterine prolapse (Chronic) First degree AV block (Chronic) Hepatitis C (Chronic) Hx of colonic polyps (Chronic) Low back pain (Chronic) Opioid dependence (Chronic) Panic disorder (Chronic) Tobacco abuse (Chronic) Benzodiazepine overdose (Resolved) Endometriosis (Resolved) Laceration of wrist (Resolved) Memory impairment Surgical History Abdominal hysterectomy (Chronic) H/O spinal fusion (Chronic) Hx laparoscopic cholecystectomy (Chronic) Lorne Fundoplication (Chronic) S/P wrist surgery (Chronic) Arthroscopy, Shoulder (Inactive) Colonoscopy - MAC (Inactive 01/16/17) Social History Smoking/Tobacco Use Status: Current every day Tobacco Type: e-cigarettes Alcohol Intake: current Drug use: Never Substance use type: does not use Number of Children: 2 What type of physical activity do you participate in: none Do you feel safe at home: Yes Do you feel safe in your relationship?: Yes Exam Narrative Exam Narrative: Vitals: Febrile and tachycardic with normal blood pressure and oxygen saturation. Const: WDWN female anxioius and shaking all over. HEENT: NC/AT. Normal facial exam. Dry MM. Eyes: Normal conjunctiva and sclera. Neck: Supple. Trachea midline. Lungs: Normal respiratory effort. Lungs are clear. Cor: RRR with tachycardia. Good radial pulses. Do not appreciate murmur at this time. GI: Soft. NT/ND. No guarding or rebound. Neuro: A+O x 3. CN grossly in tact. Good strength and no focal deficit. Ext: No C/C. 1+ pitting edema to the right LE. Burn on the medial right calf. Skin: Warm and dry without rash. No erythema. Burn is partial thickness on right calf without sign of infection. Procedures EJ/Peripheral Line Arm R: Time Out Performed: Yes Skin Cleansed in Sterile Fashion: Yes Size (gauge): 18 IV Secured and Dressing Applied: Yes Patient Tolerated Procedure: well Additional Comments: Patient is a difficult IV access patient. Ultrasound guidance used to place 18-gauge IV catheter in the right basilic vein. First at tempt able to get blood/labs but unable to flush. Second attempt successful.
[2018-10-09] MEDS: Lactated Ringers 2,000 ML 1000 ML IV ×2 (21:00→23:28)
[2018-10-09] MEDS: Acetaminophen 500 MG TAB 1000 MG PO (21:47)
[2018-10-09 21:48] LABS: Absolute Basophil Count 0.01 k/cumm (0.0-0.2); Absolute Eosinophil Count 0.04 k/cumm (0.0-0.7); Absolute Lymphocyte Count 1.43 k/cumm (1.2-3.4); Absolute Monocyte Count 0.43 k/cumm (0.11-0.7); Basophils % 0.2; Eosinophils % 0.6; HCT 30.9 % (36.0-46.0); HGB 10.1 g/dL (12.0-15.5); Mean Corp. HGB Concentration 32.7 g/dL (32.0-36.0); Mean Corpuscular Hemoglobin 29.5 pg (27.0-33.0); Mean Corpuscular Volume 90.4 fL (80-95); Mean Platelet Volume 8.8 fL (8.0-11.0); Monocytes % 6.6; Neutrophils % 70.6; Platelet Count 239 x1000/uL (130-400); RBC 3.42 m/cumm (4.00-5.20); RBC Distribution Width 14.9 % (11.7-14.6); White Blood Cell Count 6.51 k/cumm (4.4-10.8)
[2018-10-09] MEDS: LORazepam 2 MG/ML VIAL 0.5 MG IVP (21:50)
[2018-10-09] MEDS: Ketorolac 15 MG/ML VIAL IVP (21:51)
[2018-10-09 22:33] LABS: Lactate-non-spesis 1.3 mmol/l (0.6-1.4)
[2018-10-09 22:48] LABS: ALT 23 U/L (12-78); AST 24 U/L (15-37); Albumin 3.3 g/dL (3.4-5.0); Alkaline Phosphatase 78 U/L (46-116); Anion Gap 8.7 mmol/L (3-11); BUN 11 mg/dL (7-18); Bilirubin, Total 0.1 mg/dL (0.2-1.0); CO2 26.3 mmol/L (21.0-32.0); CREATININE 0.76 mg/dL (0.55-1.02); Calcium 8.6 mg/dL (8.5-10.1); Chloride 105 mmol/L (98-107); Glucose 103 mg/dL (70-100); Magnesium 1.5 mg/dL (1.8-2.4); Potassium 4.2 mmol/L (3.5-5.1); Sodium 140 mmol/L (136-145); Total Protein 6.8 g/dL (6.4-8.2)
[2018-10-09 22:59] LABS: Bilirubin Negative (Negative); Blood Negative (Negative); Clarity Clear; Glucose Negative (Negative); Ketones Negative (Negative); Leukocyte Esterase Negative (Negative); Nitrite Negative (Negative); Urobilinogen 0.2 EU/dL (Up TO 0.2); pH 7.5 (5-8)
[2018-10-09 23:15] LABS: *AMPHETAMINES SCREEN URINE Negative (Negative); *BARBITURATES SCREEN URINE Negative (Negative); *BENZODIAZEPINES SCREEN URINE Negative (Negative); Cannabinoids THC Negative (Negative); Cocaine Screen,Urine Negative (Negative); METHADONE URINE SCREEN POSITIVE (Negative); OPIATES URINE SCREEN Negative (Negative)
[2018-10-09] MEDS: LORazepam 2 MG/ML VIAL 1 MG IVP (23:16)
[2018-10-09 23:19] LABS: Tricyclic Antidepressants Negative (Negative)
[2018-10-09] MEDS: MAGNESIUM SULFATE 2 GM/50 ML BAG IVPB (23:20)
--- NOTE | 2018-10-09 23:30 | DI.CT_ITS ---
SYMPTOM/DIAGNOSIS; FEVER, SOB, CHEST TIGHTNESS PE CT AND CT ABDOMEN AND PELVIS: CT angiography was performed with multi slice acquisition and multi planar and 3D reconstruction. The study was conducted according to the usual protocol with intravenous administration of 100 cc Omnipaque 350. There is no evidence of PE. The aorta is unremarkable. Small cysts are demonstrated in the upper lobes bilaterally, right greater than left. Also there are focal regions of patchy consolidation in the right middle lobe. There is no evidence of a pneumothorax or pleural effusion. The heart is normal. Note is made of a small to moderate size hiatus hernia. There is no evidence of lymphadenopathy. The kidneys are normal. There is no obstruction. No focal bowel abnormality is identified. There is no evidence of free air or free fluid in the intraperitoneal space. The patient is status post cholecystectomy. There is mild dilatation of the intrahepatic biliary radicles with dilatation of the common duct. These findings likely on a post surgical basis. The patient is status post right sacroiliac joint orthopaedic fixation or degenerative changes involving the L4-5 disc. SUMMARY: Note is made of dilatation of the intrahepatic biliary radicals with dilatation of the common bile duct up to 9 mm. This finding can be correlated with the previous CT's and appropriate laboratory tests. The patient is status post cholecystectomy.
[2018-10-09] MEDS: Omnipaque 350 MG/ML 100 ML BTL IJ (23:36)
[2018-10-09 23:39] VITALS: BP 133/73; PULSE 105; RESP 16; TEMP 37.6; O2SAT 98
[2018-10-09 23:43] LABS: Troponin I < 0.05 ng/mL (0.00-0.06)
--- NOTE | 2018-10-10 00:22 | DI.VRAD_ITS ---
EXAM: CT Angiography Chest With Contrast EXAM DATE/TIME: 10/09/2018 9:34 PM CLINICAL HISTORY: 48 years old, female; Fever and shortness of breath and other: Chest tightness; Prior surgery; Surgery date: 6+ months; Surgery type: Esophagus, gallbladder, right hip pins, tubal TECHNIQUE: Imaging protocol: Axial computed tomographic angiography images of the chest with intravenous contrast using CT angiography protocol. Coronal and sagittal reformatted images were created and reviewed. 3D rendering: MIP reconstructed images were created and reviewed. Radiation optimization: All CT scans at this facility use at least one of these dose optimization techniques: automated exposure control; mA and/or kV adjustment per patient size (includes targeted exams where dose is matched to clinical indication); or iterative reconstruction. Contrast material: [id number]; Contrast volume: 100 ml; Contrast route: IV 18G RAC; COMPARISON: CR RIGHT RIBS TO INCLUDE CXR 07/26/2015 12:24 PM FINDINGS: Pulmonary arteries: There are no intraluminal filling defects to suggest acute pulmonary embolus. Aorta: Unremarkable. No aortic aneurysm. No aortic dissection. Lungs: There numerous small cysts in the upper lobes bilaterally peripherally right greater than left. There are focal regions of patchy consolidation predominantly in the right middle lobe. Pleural space: Unremarkable. No pneumothorax. No pleural effusion. Heart: Unremarkable. No cardiomegaly. No pericardial effusion. Mediastinum: There is a small/moderate sized hiatal hernia present. Lymph nodes: Unremarkable. No enlarged lymph nodes. Bones/joints: Slight curvature of thoracic spine apex to the right. Soft tissues: Unremarkable. IMPRESSION: 1. There are no intraluminal filling defects to suggest acute pulmonary embolus. 2. Focal regions of patchy consolidation predominantly in the right middle lobe most likely inflammatory/infectious in origin. 3. Numerous small cysts in the upper lobes bilaterally. EXAM: CT Angiography Abdomen With Contrast EXAM DATE/TIME: 10/09/2018 9:34 PM CLINICAL HISTORY: 48 years old, female; Fever and shortness of breath and other: Chest tightness; Prior surgery; Surgery date: 6+ months; Surgery type: Esophagus, gallbladder, right hip pins, tubal TECHNIQUE: Imaging protocol: Axial computed tomographic angiography images of the abdomen with intravenous contrast material. Coronal and sagittal reformatted images were created and reviewed. 3D rendering: MIP reconstructed images were created and reviewed. Radiation optimization: All CT scans at this facility use at least one of these dose optimization techniques: automated exposure control; mA and/or kV adjustment per patient size (includes targeted exams where dose is matched to clinical indication); or iterative reconstruction. COMPARISON: CR RIGHT RIBS TO INCLUDE CXR 07/26/2015 12:24 PM FINDINGS: Lungs: Unremarkable. No consolidation. VASCULATURE: Aorta: Atherosclerotic calcifications of the aorta and iliac arteries without evidence of aneurysm. Celiac trunk and mesenteric arteries: No occlusion or significant stenosis. Renal arteries: No occlusion or significant stenosis. ABDOMEN: Liver: Normal. No mass. Gallbladder and bile ducts: Status post cholecystectomy. Mild dilatation of the intrahepatic biliary radicles with dilatation of the common bile duct to 9 mm. Pancreas: Normal. No ductal dilation. Spleen: Normal. No splenomegaly. Adrenals: Normal. No mass. Kidneys and ureters: Normal. No hydronephrosis. Stomach and bowel: Unremarkable. No obstruction. No mucosal thickening. Intraperitoneal space: Unremarkable. No free air. No significant fluid collection. Bones/joints: Patient is status post right sacroiliac joint orthopedic fixation. There is degenerative disc disease at L4-5. Soft tissues: Unremarkable. Lymph nodes: Unremarkable. No enlarged lymph nodes. IMPRESSION: Mild dilatation of the intrahepatic biliary radicles with dilatation of the common bile duct to 9 mm. Recommend correlation with previous CTs and the laboratory findings. Patient is status post cholecystectomy. Dictated and Authenticated by: Pankaj Walden MD. Ordering:CHELY Jacobo MD
[2018-10-10] MEDS: levoFLOXacin 500 MG, levoFLOXacin 250 MG 750 MG PO (00:40)
[2018-10-10 00:53] VITALS: BP 133/73; PULSE 105; RESP 16; O2SAT 98
== END 2018-10-10 00:56 | disposition home or self-care (01) ==
PROVIDERS: Emergency Provider Emergency Medicine; PCP Family Medicine
DX: J18.9 Pneumonia, unspecified organism (principal); F41.8 Other specified anxiety disorders; F17.210 Nicotine dependence, cigarettes, uncomplicated
CPT/HCPCS: 36415; 71275; 74177; 80053; 80307; 87040; 93005; 96361; 96365; 96366; 96375; 96376; 99285; 81003; 83605; 83735; 84484; 85025; 93010; J1885; J2060; J3490

== ENCOUNTER 2019-02-14 13:58 | Outpatient (REF) | payer MEDICAID, SELFPAY | END 2019-02-14 14:18 | LOC: NCHCN 13:58 | PROVIDERS: PCP Family Medicine; Visit Provider Nurse Practitioner Family | DX: N89.8 Other specified noninflammatory disorders of vagina (principal) | CPT/HCPCS: 87480; 87510; 87660 ==

== ENCOUNTER 2019-04-03 00:22 | Outpatient (CLI) | payer MEDICAID, SELFPAY ==
--- NOTE | 2019-04-03 08:22 | ETT_ITS ---
APPROVED REPORT Exam: Exercise Treadmill Patient Location: Out-Patient Room/Bed: Stress Nurse: Glendy Burgess RN BMI: 26.56 Indications: Intermittent exertional chest pain associated with SOB. Medical History Medical History: Panic disorder. Tobacoo abuse. Allergies: Keflex. Sonata. OxyContin. Buspirone. Sertraline. Cardiac Risk Factors: Smoking Pretest Chest Pain Characteristics: Exertional Chest pain Exercise History: Indeterminate Physical Disabilities: Back Lung Sounds: Clear to auscultation Heart Sounds: Regular Stress Test Details Test: Exercise stress testing was performed using a Gavino protocol. Rest Stress HR Max Heart Rate (APMHR): 169 bpm Resting HR Supine: 71 bpm Target HR (85% APMHR): 143 bpm Resting HR Standin bpm Max HR Achieved: 120 bpm % of APMHR: 71 Recovery HR: 79 bpm HR response to stress: Normal HR response to stress BP Resting BP Supine: 92/60 mmHg Resting BP Standin/64 mmHg Max BP: 108/60 mmHg Recovery BP: 92/64 mmHg BP response to stress: Blunted blood pressure response to stress. ECG Resting ECG: Sinus Rhythm ST Change: Normal Stress ECG: Sinus Tachycardia ST Change: No significant ST segment changes noted. Arrhythmia: None Recovery ECG: Sinus rhythm. Recovery ST Change: No significant ST segment changes noted. Recovery Arrhythmia: None Clinical Reason for Termination: Back and leg pains, unsafe to continue on treadmill. Stress Symptoms: Chest pain, Dyspnea, Leg Fatigue, General Fatigue Exercise duration: 2 min32 sec Highest Stage Achieved: Stage 1: 1.7 mph at 10% grade. Exercise capacity: 4.65 METs Functional Capacity: Markedly diminished capacity Angina Score: Exercise-Limiting Stress ECG Conclusion 1. The patient exercised for 2 minutes and 32 seconds (4.65 METS). This represents markedly diminish ed exercise capacity for a woman of her age. 2. Test was terminated due to back and leg pain. 3. The patient did not reach target heart rate (RPP 13k) 4. There was no evidence of ischemia on ECG at this level of stress. 5. This is an inadequate test to predict risk of of angiographically significant coronary disease. Protocol Used: Gavino Protocol Stress Test Summary STAGE Time (mins) Speed (mph) Grade (%) HR BP SYMPTOMS METS Supine 71 92/60 Standing 92 96/64 1 3 1.7 10 120 96/64 Back and leg pains. Chest tightness. I feel like I'm going to fall over 4. 6 7 10.2 12.9 17.2 1 min recovery 109 108/60 3 min recovery 70 104/70 chest tightness subsided. 6 min recovery 72 92/64
--- NOTE | 2019-04-03 09:08 | DI.US_ITS ---
APPROVED REPORT EXAM: Comprehensive 2D, Doppler, and color-flow Echocardiogram Patient Location: Out-Patient [facility] Miner Blasting: Estefany Patetrson RDCS (AE) Indications: chest pain, sob, r7.9, r06.02 Conclusion Left Ventricle : The left ventricle is normal. Left ventricular systolic function is normal. Mild con centric left ventricular hypertrophy. There is normal LV segmental wall motion. The left ventricular diastolic function is normal. LVEF is estimated to be 50-55%. Right Ventricle : The right ventricle is normal size. The right ventricular systolic function is norm al. Atria : The left atrium size is top normal. The right atrium size is normal. Aortic Valve : The aortic valve is normal in structure. There is no aortic valvular stenosis. No aort ic regurgitation is present. Mitral Valve : Mitral valve leaflets are mildly thickened. Trace mitral regurgitation. No evidence of mitral valve stenosis. Tricuspid Valve : Tricuspid valve leaflets are thickened mildly, but open well. Trace to mild tricusp id regurgitation. Great Vessels : IVC is normal in size and collapses >50% with inspiration. Estimated RVSP is 17-20 m mHg. Compared to echocardiogram dated 12/15/2014: There is no significant change. Wall motion Left Ventricle The left ventricle is normal. Left ventricular systolic function is normal. Mild concentric left vent ricular hypertrophy. There is normal LV segmental wall motion. The left ventricular diastolic functio n is normal. LVEF is estimated to be 50-55%. Right Ventricle The right ventricle is normal size. The right ventricular systolic function is normal. Atria The left atrium size is top normal. The right atrium size is normal. Aortic Valve The aortic valve is normal in structure. There is no aortic valvular stenosis. No aortic regurgitatio n is present. Mitral Valve Mitral valve leaflets are mildly thickened. No evidence of mitral valve stenosis. Trace mitral regurg itation. Tricuspid Valve Tricuspid valve leaflets are thickened mildly, but open well. Trace to mild tricuspid regurgitation. Great Vessels The aortic root is normal in size. The ascending aorta size is normal. IVC is normal in size and usha apses >50% with inspiration. Estimated RVSP is 17-20 mmHg. Pericardium There is no pericardial effusion. 2D Dimensions IVSd 1.05 cm F: 0.6-1.0 LV EDV A2C 73.80 mL PWd 1.20 cm F: 0.6 - 1.0 LV EDV A4C 77.80 mL LVDd 4.20 cm F: 3.8 - 5.2 LA Volume Index A2C 29.32 mL/m2 LVDs 3.10 cm F: 2.2 - 3.5 LA Volume Index A4C 32.59 mL/m2 Aortic Root 2.75 cm F: 2.7 - 3.3 LA Volume Index Biplane 32.06 mL/m2 RVID Base (AP4) 3.18 cm (M/F) 2.5-4.1 LA Area A4C 17.73 cm2 RA Area A4C 12.26 cm2 LA Area A2C 16.22 cm2 LVOT 1.80 cm (M/F) 1.5-2.5 EF AP4 58.61 % Ascending Aorta 2.99 cm F: 2.3 - 3.1 EF AP2 57.99 % LVEF (Teich) 51.25 % EF BP 58.31 % LVEF (Kapoor's) 58.31 % F: 54 - 74 LV Volume 66.60 mL F: 46 - 106 LV Volume Index 41.36 mL/m2 F: 29 - 61 FS 25.85 % LV Diastology E/A Ratio 0.7 MED E' 0.06 (>0.07 m/s) LV E/e MED 7.40 (<14) LAT E' 0.09 (>0.1 m/s) LV E/e LAT 5.00 (<14) Aortic Valve LVOT Area 2.59 cm2 LVOT Peak Delmar. 0.90 m/s LVOT Mean Delmar. 0.57 m/s LVOT Peak Gr. 3.35 mmHg RAMEZ Vmax Index 1.31 cm2/m2 LVOT Mean Gr. 1.55 mmHg LVOT VTI 0.15 m RAMEZ Mean Delmar. Index 1.18 cm2/m2 AoV Peak Delmar. 1.12 (0.5-1.3 m/s) AoV Mean Delmar. 0.78 m/s AO Peak GR. 5.06 mmHg AO Mean GR. 2.70 (<5 mmHg) RAMEZ (VTI) 2.17 (2.5-4.5 cm2) RAMEZ (VTI) Index 1.35 cm/m2 Mitral Valve MV E Max Delmar. 0.43 (0.4-1.3 m/s) MV A Velocity 0.65 (0.4-1.3 m/s) E/A Ratio 0.63 Tricuspid Valve TR P. Velocity 2.09 m/s TV Regurg Vmax 2.09 m/s RAP Estimate 3.00 mmHg RVSP 20.00 mmHg TR P. Gradient 17.40 mmHg
== END 2019-04-03 00:42 ==
PROVIDERS: PCP Nurse Practitioner Family; Visit Provider Nurse Practitioner Family
DX: R07.9 Chest pain, unspecified (principal); R06.2 Wheezing; F17.210 Nicotine dependence, cigarettes, uncomplicated; R68.89 Other general symptoms and signs
CPT/HCPCS: 93017; 93306

== ENCOUNTER 2019-04-03 01:43 | Outpatient (CLI) | payer MEDICAID, SELFPAY ==
--- NOTE | 2019-04-10 09:46 | W.HOLTRPT ---
Date of service: 04/10/19 Time of Service: 09:46 Holter Monitor Report Holter Monitor Note: This is a 48-hour Holter monitor ordered for the indication of palpitations. ?Patient was in normal sinus rhythm for the entirety of the recording. ?There were no single supraventricular ectopic beats ?There were 5 single ventricular ectopic beats. ?There were no episodes of atrial fibrillation, pauses greater than 3 seconds or episodes of high degree heart block. ?There were no patient reported events.
== END 2019-04-03 02:03 ==
PROVIDERS: PCP Nurse Practitioner Family; Visit Provider Nurse Practitioner Family
DX: R00.2 Palpitations (principal); I49.3 Ventricular premature depolarization
CPT/HCPCS: 93225

== ENCOUNTER 2019-04-03 10:31 | Emergency (ER) | payer MEDICAID, SELFPAY ==
[2019-04-03] VITALS (7 sets, daily range): BP systolic 103–107; BP diastolic 50–60; PULSE 66–74; RESP 12–20; TEMP 36.8; O2SAT 92–96
--- NOTE | 2019-04-03 11:03 | ED.GENADUL_ITS ---
Discharge Plan Disposition Patient Disposition: HOME Condition: Good Discharge Details Chief Complaint: Chest Pain Clinical Impression: Anxiety, Fatigue Primary Care Provider: Laura Blackwell ED Provider: Guillermo Park Home Meds and New Rx's Prescriptions: No Action methadone 10 mg/5 mL solution 105 mg PO DAILY RF: 0 Lyrica 20 MG/1 ML solution 100 mg PO BID RF: 0 PROVENTIL HFA 18 GM HFA.AER.AD 2 puff Inhalation Q 4-6 HRS RF: 0 alprazolam 0.5 MG tablet 0.5 mg PO BID PRN (Reason: Anxiety) RF: 0 ibuprofen 800 mg tablet 800 mg PO TID PRN (Reason: pain) Qty: 30 RF: 0 levofloxacin [Levaquin] 750 mg tablet 750 mg PO QHS Qty: 7 RF: 0 trazodone 100 MG tablet 200 mg PO HS RF: 0 Discharge Instructions Instructions: Fatigue (ED), Anxiety (ED) Additional Instructions: Please follow-up extremely closely with your primary care provider. If any of your symptoms change or you change your mind at any point please feel free to co me back immediately to complete the reassessment and evaluation that we initially discussed. If you notice any worsening of your symptoms, or any new symptoms such as vomiting, diarrhea, fever, chills, shortness of breath, chest pain, numbness, weakness, or fainting , please return immediately to the emergency department for reevaluation. Please follow up with your primary care provider as soon as possible for reassessment and reevaluation. As always, it was a pleasure participating in your medical care today. Referrals: Laura Blackwell [Primary Care Provider] - Medical Decision Making This is a 49-year-old female with a past medical history of anxiety, endometriosis, GERD, who presents today for evaluation of mild panic-like se nsation with associated mild lightheadedness and mild chest tightness. Symptoms occurred after her stress test. She completed the stress test without any significant difficulty, she was not able to get up to a significant rate, but had no EKG abnormalities during the test. After the test she began to feel her symptoms, she describes them as mild. She came to the ER for further evaluation. Physical exam demonstrates no significant abnormalities aside from minimal crackles in the bases. Screening EKG was negative for evidence of STEMI. I recommended to the patient we get line labs evaluate further for cardiac etiology although this is unlikely. Initially the patient was copacetic with this, however after about 15 minutes in the ER she had complete resolution of her symptoms and refused labs or imaging. She is very pleasant however she clearly stated that she felt that with the resolution of her symptoms she felt that this was like her anxiety attacks that she has had in the past. She did not want any further work-up, imaging or labs or IV. I did discuss with the patient my request for labs and imaging, and at this time through notable discussion, weighing the risks and benefits, utilizing a shared decision making process, and with a very clear discussion on the benefit of the studies and the risks associated with discharge without the studies including the unlikely but potential worst case scenario of or lifelong disability the patient has continued to pleasantly refused them and would like to go home. Respecting the patient's wishes, they will be discharged home. Clinically the patient does appear well, her vital signs are normal and screening EKG is unremarkable. I feel that her symptoms may very well be secondary to anxiety, however I also made it clear that the patient can return at any time if she would like the remainder of her work-up, additionally I recommended the vital importance of close follow-up with her PCP. I have extensively reviewed the treatment plan and discharge instructions with the patient. I have addressed all patient concerns at this time. The patient was made aware of what symptoms to monitor for that would warrant a return to the emergency department. Discussed the plan with the patient, they demonstrate verbal understanding and agreement with our assessment and plan at this time. Patient is of a appropriate age to make decisions. The patient is of sound mind, appears clinically sober, and has capacity to make decisions by my clinical exam. We have provided options for treatment and discussed the risks and benefits of these options and refusing these options, including and disability specific to the patient's pathology. Patient is able to discuss the risks and benefits and alternatives of treatment and refusing treatment. The patient chooses to leave before evaluation and treatment is complete against medical recommendation. Stress ECG Conclusion 1. The patient exercised for 2 minutes and 32 seconds (4.65 METS). This represents markedly diminished exercise capacity for a woman of her age. 2. Test was terminated due to back and leg pain. 3. The patient did not reach target heart rate (RPP 13k) 4. There was no evidence of ischemia on ECG at this level of stress. 5. This is an inadequate test to predict risk of of angiographically significant coronary disease. EKG 10: 38 Rate 72, [place] 214, QTc 449, QRS 84, sinus rhythm, no significant ST elevation or depression, no evidence of STEMI, no evidence of significant Q waves. Single inverted T waves in V1, no other abnormalities. HPI General Date/Time Provider Initiated Documentation: 04/03/19 10:33 . HPI Narrative: Cecelia demarco is a 49-year-old female with a past medical history of panic attacks and anxiety, GERD, endometriosis who presents today for feelings of anxiety. The patient states that she was taking a stress test today and felt fine during the stress test, exercise capability was limited. However she did complete the test and had no symptoms then, after the test she felt slightly panicked, little lightheaded, had very mild chest pain. Over the last month she has had over the last month she has had mild episodes of drowsiness, and she does feel drowsy now. Patient denies any history of MO, or previous cardiac disease. She has some distant second-degree relatives who have had cardiac disease but no first- degree relatives. She has also had a very mild cough for the last month. She denies any other complaints at this time. She denies any exertional dyspnea or chest pain. She denies any tearing or ripping sensation in her chest. Denies PE risk factors such as recent long car rides, immobilization, recent surgery, prior history of DVT or PE, family history of PE or DVT, morbid obesity, exogenous estrogen and smoking, hemoptysis, history of cancer. She denies any fever or chills. Related Data Home Medications Medication Instructions Recorded Confirmed trazodone 200 mg PO HS 09/11/16 10/22/18 Lyrica 100 mg PO BID ml 04/05/17 10/22/18 Proventil Hfa 2 puff INHALATION Q 4-6 HRS 04/05/17 10/22/18 inhaler methadone 10 mg/5 mL oral solution 105 mg PO DAILY ml 01/07/18 10/22/18 alprazolam 0.5 mg PO BID PRN 07/29/18 10/22/18 ibuprofen 800 mg PO TID PRN #30 tab 09/25/18 10/22/18 levofloxacin [Levaquin] 750 mg PO QHS #7 tab 10/10/18 10/22/18 Previous Rx's Medication Instructions Recorded ibuprofen 800 mg PO TID PRN #30 tab 09/25/18 levofloxacin [Levaquin] 750 mg PO QHS #7 tab 10/10/18 Allergies Allergy/AdvReac Type Severity Reaction Status Date / Time cephalexin monohydrate Allergy Intermediate Skin Rash Verified 09/25/18 15:57 [From Keflex] zaleplon [From Sonata] Allergy Unknown Verified 09/25/18 15:57 oxycodone HCl Allergy Verified 09/25/18 15:57 [From OxyContin] buspirone AdvReac Unknown Verified 09/25/18 15:57 sertraline HCl [From Zoloft] AdvReac Unknown Verified 09/25/18 15:57 General Stated Complaint: Chest Pain ILO: 3 Review of Systems All systems reviewed & are unremarkable except as noted in HPI and below PFSH Social History Smoking/Tobacco Use Status: Current every day Tobacco Type: e-cigarettes Alcohol Intake: never Drug use: Never Substance use type: does not use Number of Children: 2 What type of physical activity do you participate in: none Do you feel safe at home: Yes Do you feel safe in your relationship?: Yes Exam Narrative Exam Narrative: 1.Const: Well-nourished, Well-developed, appearing stated age 2.Eyes: PERRL, no conjunctival injection, and symmetrical lids. 3.ENT: Atraumatic external nose and ears. Moist MM. Neck: Symmetric, trachea midline, No thyromegaly. 4.CVS: +S1/S2, No murmurs or gallops. Peripheral pulses 2+ and equal in all extremities. Brisk capillary refill in all extremities. 5.RESP: Unlabored respiratory effort. Clear to auscultation bilaterally/very minimal crackles in the bases bilaterally. No wheezes or significant rhonchi. 6.GI: Soft, Nontender/Nondistended, No hepatosplenomegaly. No guarding or rebound. 7.MSK: Normocephalic/Atraumatic, Extremities w/o deformity or ttp No cyanosis or clubbing, Normal movement of all extremities 8.Skin: Warm, Dry. No rashes or lesions. 9.Neuro: general assignment reporter II-XII grossly intact. Sensation grossly intact, no focal neurologic deficits. 10.Psych: (AAO) x3. Appropriate mood and affect Course Vital Signs Vital signs: Vital Signs Temperature 36.8 C 04/03/19 10:36 Pulse 73 04/03/19 10:36 Respiratory Rate 13 04/03/19 10:36 Blood Pressure 107/50 L 04/03/19 10:36 Pulse Oximetry 95 04/03/19 10:36 Temperature 36.8 C 04/03/19 10:36 Temperature Source Temporal Artery Scan 04/03/19 10:36 Pulse 72 04/03/19 11:00 Pulse 72 04/03/19 11:00 Respiratory Rate 12 04/03/19 11:00 Respiratory Effort Non-Labored 04/03/19 10:45 Respiratory Depth Normal 04/03/19 10:45 Respiratory Pattern Normal 04/03/19 10:45 Blood Pressure 103/60 04/03/19 11:00 Blood Pressure Mean 71 04/03/19 11:00 Blood Pressure Position Supine 04/03/19 10:36 Pulse Oximetry 96 04/03/19 11:00 Oxygen Delivery Method Room Air 04/03/19 10:36 Oxygen Flow Rate 0 04/03/19 10:36 Pain Level 7 04/03/19 10:45 Lab/Test Results Lab/Test Results: Laboratory Tests Range/Units 04/03/19 04/03/19 04/03/19 10:49 10:49 10:49 WBC Cancelled RBC Cancelled Hgb Cancelled Hct Cancelled MCV Cancelled MCH Cancelled MCHC Cancelled RDW Cancelled Plt Count Cancelled MPV Cancelled Immature Gran % Cancelled Neutrophils % Cancelled Band Neutrophils % Cancelled Lymphocytes % Cancelled Atypical Lymphs % Cancelled Monocytes % Cancelled Eosinophils % Cancelled Basophils % Cancelled Metamyelocytes % Cancelled Myelocytes % Cancelled Promyelocytes % Cancelled Absolute Neutrophils Cancelled Absolute Lymphocytes Cancelled Absolute Monocytes Cancelled Absolute Eosinophils Cancelled Absolute Basophils Cancelled Nucleated RBCs Cancelled Differential Comment Cancelled Other Cell Type Cancelled RBC Morphology Cancelled Polychromasia Cancelled Hypochromasia Cancelled Poikilocytosis Cancelled Basophilic Stippling Cancelled Anisocytosis Cancelled Microcytosis Cancelled Macrocytosis Cancelled Spherocytes Cancelled Target Cells Cancelled Tear Drop Cells Cancelled Ovalocytes Cancelled Stomatocytes Cancelled Merchant-Holley Bodies Cancelled [place] Cells Cancelled Acanthocytes (Spur) Cancelled Schistocytes Cancelled PT Cancelled INR Cancelled APTT Cancelled D-Dimer Cancelled Sodium Cancelled Potassium Cancelled Chloride Cancelled Carbon Dioxide Cancelled Anion Gap Cancelled BUN Cancelled Creatinine Cancelled Estimated GFR/1.73 m2 Cancelled Glucose Cancelled Calcium Cancelled Total Bilirubin Cancelled AST Cancelled ALT Cancelled Alkaline Phosphatase Cancelled Troponin I Cancelled NT-Pro-B Natriuret Pep Cancelled Total Protein Cancelled Albumin Cancelled Lipase Cancelled Range/Units 04/03/19 13:49 WBC RBC Hgb Hct MCV MCH MCHC RDW Plt Count MPV Immature Gran % Neutrophils % Band Neutrophils % Lymphocytes % Atypical Lymphs % Monocytes % Eosinophils % Basophils % Metamyelocytes % Myelocytes % Promyelocytes % Absolute Neutrophils Absolute Lymphocytes Absolute Monocytes Absolute Eosinophils Absolute Basophils Nucleated RBCs Differential Comment Other Cell Type RBC Morphology Polychromasia Hypochromasia Poikilocytosis Basophilic Stippling Anisocytosis Microcytosis Macrocytosis Spherocytes Target Cells Tear Drop Cells Ovalocytes Stomatocytes Merchant-[place] Bodies [place] Cells Acanthocytes (Spur) Schistocytes PT INR APTT D-Dimer Sodium Potassium Chloride Carbon Dioxide Anion Gap BUN Creatinine Estimated GFR/1.73 m2 Glucose Calcium Total Bilirubin AST ALT Alkaline Phosphatase Troponin I Cancelled NT-Pro-B Natriuret Pep Total Protein Albumin Lipase
== END 2019-04-03 11:10 | disposition home or self-care (01) ==
PROVIDERS: Emergency Provider Student in an Organized Health Care Education/Training Program; PCP Nurse Practitioner Family
DX: F41.0 Panic disorder [episodic paroxysmal anxiety] (principal); R53.83 Other fatigue; R42 Dizziness and giddiness; Z53.29 Procedure and treatment not carried out because of patient's decision for other reasons
CPT/HCPCS: 80053; 83690; 93005; 99283; 83880; 84484; 85025; 85379; 85610; 85730; 93010

== ENCOUNTER 2019-04-10 09:00 | Outpatient (CLI) | payer MEDICAID, SELFPAY | END 2019-04-10 09:20 | PROVIDERS: PCP Nurse Practitioner Family; Visit Provider Nurse Practitioner Family | DX: R00.2 Palpitations (principal); I49.3 Ventricular premature depolarization | CPT/HCPCS: 93226 ==

== ENCOUNTER 2019-05-26 06:18 | Emergency (ER) | payer MEDICAID, SELFPAY ==
[2019-05-26 06:21] VITALS: BP 161/109; PULSE 89; RESP 18; TEMP 37; O2SAT 100
--- NOTE | 2019-05-26 06:36 | ED.GENADUL_ITS ---
Discharge Plan Disposition Patient Disposition: HOME Condition: Good Discharge Details Chief Complaint: Abd Prob Clinical Impression: Nausea & vomiting Primary Care Provider: Laura Blackwell ED Provider: Shanti Matthews Home Meds and New Rx's Prescriptions: New metoclopramide HCl [Reglan] 10 mg tablet 10 mg PO Q6H PRN (Reason: nausea and vomiting) Qty: 8 RF: 0 Continued methadone 10 mg/5 mL solution 105 mg PO DAILY RF: 0 pregabalin [Lyrica] 20 MG/1 ML solution 100 mg PO BID RF: 0 PROVENTIL HFA 18 GM HFA.AER.AD 2 puff Inhalation Q 4-6 HRS RF: 0 alprazolam 0.5 MG tablet 0.5 mg PO BID PRN (Reason: Anxiety) RF: 0 ibuprofen 800 mg tablet 800 mg PO TID PRN (Reason: pain) Qty: 30 RF: 0 levofloxacin [Levaquin] 750 mg tablet 750 mg PO QHS Qty: 7 RF: 0 trazodone 100 MG tablet 200 mg PO HS RF: 0 Discharge Instructions Instructions: Metoclopramide (By mouth), Acute Nausea and Vomiting (ED), Acute Diarrhea (ED) Additional Instructions: Please return immediately to the emergency department if you develop any new or worsening symptoms, if your condition does not improve as expected, or if you become otherwise concerned. It is extremely important that you call soon as possible to make an appointment to be seen in follow-up for this visit by your primary care doctor. Referrals: Laura Blackwell [Primary Care Provider] - Medical Decision Making <Guillermo Park DO - Last Filed: 05/26/19 07:09> This is a 49-year-old female with a past medical history of endometriosis, hepatitis C, anxiety, Lorne fundoplication, cholecystectomy, hysterectomy, who presents today for nausea vomiting and diarrhea that started at 4 AM. Patient states that she is recently been to a few friends house who have had identical symptoms. This morning she woke up and had the nausea vomiting and diarrhea which is led to a few episodes of loose watery stool, nonbilious and nonbloody vomiting which she describes as a mild to moderate amount of sputum. She denies any recent foreign travel or IV or oral a ntibiotics. She denies any abdominal pain but does admit to some mild epigastric crampiness and nausea. Physical exam demonstrates minimal left upper quadrant epigastric achiness. No signs of an acute surgical abdomen whatsoever. Exam is otherwise unremarkable. I did discuss imaging options for the patient and at this time through notable discussion, weighing the risks and benefits, and a shared decision making process the patient has refused imaging at this time. Patient is of an appropriate age to make decisions. The patient is of sound mind, appears clinically sober, and has capacity to make decisions by my clinical exam. Respecting the patient's wishes we will hold off on imaging. At this time we will treat with Bentyl and Zofran, rehydrate, get basic labs. Signs and symptoms appear clinically consistent with viral gastroenteritis similar to her family members and friends. No clinical evidence of an acute surgical abdomen at this time. Case will be signed out to my colleague Dr. Shanti Matthews for evaluation of labs, repeat assessment and final disposition. <Shanti Matthews MD - Last Filed: 05/26/19 09:25> Jodee Gunter is a 49-year-old woman who presented to the emergency department with nausea, vomiting, diarrhea, patient signed out to me by Dr. Park at time of shift change with labs, reassessment pending. Labs reviewed, no elevated anion gap, creatinine 0.94, lipase 166. Patient reports feeling much better, reports no abdominal pain. She has had no vomiting or diarrhea in the emergency department. She states that she is ready for discharge. She requests to take her methadone in the emergency department, which she did. Vital signs taken just before she took her methadone, heart rate 107. Patient observed briefly, heart rate reassessed, now 94 at 09:10 without further intervention. Patient is well and nontoxic appearing. She states that she has no symptoms at this time. Plan for discharge to home, outpatient follow-up. Will give Reglan as opposed to Zofran given concurrent methadone usage. I had a lengthy discussion with Patient regarding return to emergency department precautions, home care, and importance of outpatient follow-up. Pt verbalizes understanding of the plan and is amenable. Patient discharged to home with clear plan for outpatient follow- up. All questions were answered. Disposition decision was made weighing the risks and benefits of hospitalization versus outpatient treatment, the risk for further decompensation, and the patient's wishes. Medical Records Medical records reviewed: Yes I reviewed the patient's medical records. Lab Data Lab results reviewed: Yes I reviewed the patient's lab results. Labs: Laboratory Tests Range/Units 05/26/19 07:10 Sodium (136-145) mmol/L 140 Potassium (3.5-5.1) mmol/L 3.7 Chloride (98-107) mmol/L 104 Carbon Dioxide (21.0-32.0) mmol/L 26.5 Anion Gap (3-11) mmol/L 9.5 BUN (7-18) mg/dL 22 H Creatinine (0.55-1.02) mg/dL 0.94 Estimated GFR/1.73 m2 (mL/min/1.73m2) >= 60.00 Glucose (74-106) mg/dL 96 Calcium (8.5-10.1) mg/dL 8.7 Total Bilirubin (0.2-1.0) mg/dL 0.3 AST (15-37) U/L 25 ALT (14-59) U/L 21 Alkaline Phosphatase (46-116) U/L 117 H Total Protein (6.4-8.2) g/dL 8.3 H Albumin (3.4-5.0) g/dL 4.0 Lipase (73-393) U/L 166 HPI <Guillermo Park DO - Last Filed: 05/26/19 07:09> General Date/Time Provider Initiated Documentation: 05/26/19 06:29 . HPI Narrative: This is a 49-year-old female with a past medical history of endometriosis, hepatitis C, anxiety, Lorne fundoplication, cholecystectomy, hysterectomy, who presents today for nausea vomiting and diarrhea that started at 4 AM. Patient states that she is recently been to a few friends house who have had identical symptoms. This morning she woke up and had the nausea vomiting and diarrhea which is led to a few episodes of loose watery stool, nonbilious and nonbloody vomiting which she describes as a mild to moderate amount of sputum. She denies any recent foreign travel or IV or oral antibiotics. She denies any abdominal pain but does admit to some mild epigastric crampiness and nausea. She has no other complaints at this time. She denies any other modifying factors. Related Data Home Medications Medication Instructions Recorded Confirmed trazodone 200 mg PO HS 09/11/16 05/26/19 Proventil Hfa 2 puff INHALATION Q 4-6 HRS 04/05/17 05/26/19 inhaler pregabalin [Lyrica] 100 mg PO BID ml 04/05/17 05/26/19 methadone 10 mg/5 mL oral solution 105 mg PO DAILY ml 01/07/18 05/26/19 alprazolam 0.5 mg PO BID PRN 07/29/18 05/26/19 ibuprofen 800 mg PO TID PRN #30 tab 09/25/18 05/26/19 levofloxacin [Levaquin] 750 mg PO QHS #7 tab 10/10/18 10/22/18 metoclopramide HCl [Reglan] 10 mg PO Q6H PRN #8 tab 05/26/19 Previous Rx's Medication Instructions Recorded ibuprofen 800 mg PO TID PRN #30 tab 09/25/18 levofloxacin [Levaquin] 750 mg PO QHS #7 tab 10/10/18 metoclopramide HCl [Reglan] 10 mg PO Q6H PRN #8 tab 05/26/19 Allergies Allergy/AdvReac Type Severity Reaction Status Date / Time cephalexin monohydrate Allergy Intermediate Skin Rash Verified 05/26/19 06:28 [From Keflex] zaleplon [From Sonata] Allergy Unknown Verified 05/26/19 06:28 oxycodone HCl Allergy Verified 05/26/19 06:28 [From OxyContin] buspirone AdvReac Unknown Verified 05/26/19 06:28 sertraline HCl [From Zoloft] AdvReac Unknown Verified 05/26/19 06:28 General Stated Complaint: Abd Prob LIO: 3 Review of Systems <Guillermo Park DO - Last Filed: 05/26/19 07:09> All systems reviewed & are unremarkable except as noted in HPI and below PFSH <Guillermo Park DO - Last Filed: 05/26/19 07:09> Social History Smoking/Tobacco Use Status: Current every day Tobacco Type: e-cigarettes Alcohol Intake: never Drug use: Never Substance use type: does not use Number of Children: 2 What type of physical activity do you participate in: none Do you feel safe at home: Yes Do you feel safe in your relationship?: Yes Exam <Guillermo Park DO - Last Filed: 05/26/19 07:09> Narrative Exam Narrative: 1.Const: Well-nourished, Well-developed, appearing stated age 2.Eyes: PERRL, no conjunctival injection, and symmetrical lids. 3.ENT: Atraumatic external nose and ears. Moist MM. Neck: Symmetric, trachea midline, No thyromegaly. 4.CVS: +S1/S2, No murmurs or gallops. Peripheral pulses 2+ and equal in all extremities. Brisk capillary refill in all extremities. 5.RESP: Unlabored respiratory effort. Clear to auscultation bilaterally. No wheezes rales or rhonchi 6.GI: Soft,Nondistended, No hepatosplenomegaly. No guarding or rebound. No pain at McBurney's point, negative Garcias sign. Minimal left upper quadrant epigastric tenderness. 7.MSK: Normocephalic/Atraumatic, Extremities w/o deformity or ttp No cyanosis or clubbing, Normal movement of all extremities 8.Skin: Warm, Dry. No rashes or lesions. 9.Neuro: electrical assembler II-XII grossly intact. Sensation grossly intact, no focal neurologic deficits. 10.Psych: (AAO) x3. Appropriate mood and affect Course <Guillermo Park DO - Last Filed: 05/26/19 07:09> Vital Signs Vital signs: Vital Signs Temperature 37.0 C 05/26/19 06:21 Pulse 89 05/26/19 06:21 Respiratory Rate 18 05/26/19 06:21 Blood Pressure 161/109 H 05/26/19 06:21 Pulse Oximetry 100 05/26/19 06:21 Temperature 37.0 C 05/26/19 06:21 Temperature Source Temporal Artery Scan 05/26/19 06:21 Pulse 89 05/26/19 06:21 Respiratory Rate 18 05/26/19 06:21 Respiratory Effort 05/26/19 06:21 Blood Pressure 161/109 H 05/26/19 06:21 Pulse Oximetry 100 05/26/19 06:21 Oxygen Delivery Method Room Air 05/26/19 06:21 Oxygen Flow Rate 0 05/26/19 06:21 Sign Out <Guillermo Park DO - Last Filed: 05/26/19 07:09> Sign Out Data: Sign Out Comment: Suspect gastroenteritis. Pending labs, rehydration and repeat assessment. Has been given Farideh and Qasim. Last updated by Guillermo Park DO at 05/26/19 07:10
[2019-05-26] MEDS: Normal Saline 1,000 ML 1000 ML IV (07:10)
[2019-05-26] MEDS: Ondansetron 4 MG/2 ML VIAL IVP (07:18)
[2019-05-26] MEDS: Dicyclomine 20 MG TAB PO (07:29)
[2019-05-26 07:30] LABS: ALT 21 U/L (14-59); AST 25 U/L (15-37); Alkaline Phosphatase 117 U/L (46-116); Anion Gap 9.5 mmol/L (3-11); BUN 22 mg/dL (7-18); Bilirubin, Total 0.3 mg/dL (0.2-1.0); CO2 26.5 mmol/L (21.0-32.0); CREATININE 0.94 mg/dL (0.55-1.02); Calcium 8.7 mg/dL (8.5-10.1); Chloride 104 mmol/L (98-107); Glucose 96 mg/dL (74-106); Lipase 166 U/L (73-393); Potassium 3.7 mmol/L (3.5-5.1); Sodium 140 mmol/L (136-145); Total Protein 8.3 g/dL (6.4-8.2)
[2019-05-26 08:48] VITALS: BP 135/88; PULSE 107; RESP 18; TEMP 37.2; O2SAT 97
--- NOTE | 2019-05-26 08:53 | NUR.NOTE ---
just took her own methadone-asked permission prior. Nursing Note:
[2019-05-26 09:10] VITALS: PULSE 94
== END 2019-05-26 09:08 | disposition home or self-care (01) ==
PROVIDERS: Student in an Organized Health Care Education/Training Program; Emergency Provider Student in an Organized Health Care Education/Training Program; PCP Nurse Practitioner Family
DX: R11.2 Nausea with vomiting, unspecified (principal); R10.13 Epigastric pain; R19.7 Diarrhea, unspecified
CPT/HCPCS: 36415; 80053; 83690; 96361; 96374; 99284; 99283; J2405

== ENCOUNTER 2019-08-13 18:29 | Outpatient (CLI) | payer MEDICAID, SELFPAY ==
[2019-08-13 18:46] LABS: HCT 27.7 % (36.0-46.0); Mean Corp. HGB Concentration 32.5 g/dL (32.0-36.0); Mean Corpuscular Hemoglobin 28.3 pg (27.0-33.0); Mean Corpuscular Volume 87.1 fL (80-95); Mean Platelet Volume 10.1 fL (8.0-11.0); Platelet Count 139 x1000/uL (130-400); RBC 3.18 m/cumm (4.00-5.20); White Blood Cell Count 2.68 k/cumm (4.4-10.8)
[2019-08-13 18:57] LABS: Anion Gap 7.8 mmol/L (3-11); BUN 10 mg/dL (7-18); CO2 27.2 mmol/L (21.0-32.0); Calcium 8.8 mg/dL (8.5-10.1); Chloride 104 mmol/L (98-107); Glucose 83 mg/dL (74-106); Potassium 4.1 mmol/L (3.5-5.1); Sodium 139 mmol/L (136-145); TSH (W/Ref FT4) 1.65 uIU/mL (0.36-3.74)
[2019-08-14 17:34] LABS: Abs Immature Grans 0.01 k/cumm (0.0-0.09); Absolute Basophil Count 0.01 k/cumm (0.0-0.2); Absolute Lymphocyte Count 1.49 k/cumm (1.2-3.4); Absolute Monocyte Count 0.26 k/cumm (0.11-0.7); Absolute Neutrophil Count 0.71 k/cumm (1.2-6.7); Basophils % 0.4; Eosinophils % 3.9; Immature Grans % 0.4 %; Lymphocytes % 57.8; Monocytes % 10.1; Neutrophils % 27.4
[2019-08-14 17:42] LABS: Diff Comment Manual Differential
[2019-08-14 20:10] LABS: COVID-19 RT-PCR Result Not Detected
== END 2019-08-13 18:49 ==
PROVIDERS: PCP Nurse Practitioner Family; Visit Provider Nurse Practitioner Family
DX: R00.2 Palpitations (principal); R05 Cough; Z20.828 Contact with and (suspected) exposure to other viral communicable diseases
CPT/HCPCS: 80048; 85027; U0003; 84443; 85007

== ENCOUNTER 2019-08-22 01:41 | Outpatient (CLI) | payer MEDICAID, SELFPAY ==
[2019-08-22 11:59] LABS: Abs Immature Grans 0.01 k/cumm (0.0-0.09); Absolute Basophil Count 0.01 k/cumm (0.0-0.2); Absolute Eosinophil Count 0.05 k/cumm (0.0-0.7); Absolute Lymphocyte Count 1.99 k/cumm (1.2-3.4); Absolute Monocyte Count 0.36 k/cumm (0.11-0.7); Absolute Neutrophil Count 1.74 k/cumm (1.2-6.7); Basophils % 0.2; Eosinophils % 1.2; HCT 32.7 % (36.0-46.0); HGB 10.6 g/dL (12.0-15.5); Immature Grans % 0.2 %; Lymphocytes % 47.8; Mean Corp. HGB Concentration 32.4 g/dL (32.0-36.0); Mean Corpuscular Hemoglobin 28.2 pg (27.0-33.0); Mean Platelet Volume 8.9 fL (8.0-11.0); Monocytes % 8.7; Neutrophils % 41.9; Platelet Count 252 x1000/uL (130-400); RBC 3.76 m/cumm (4.00-5.20); RBC Distribution Width 14.9 % (11.7-14.6); White Blood Cell Count 4.16 k/cumm (4.4-10.8)
[2019-08-22 12:52] LABS: Iron 63 ug/dL (50-170); Total Iron Binding Capacity 376 ug/dL (250-450); Transferrin Sat 17 % (15-50)
[2019-08-22 13:20] LABS: Ferritin 30 ng/mL (8-252); Vitamin B12 588 pg/mL (193-986)
== END 2019-08-22 02:01 ==
PROVIDERS: PCP Nurse Practitioner Family; Visit Provider Nurse Practitioner Family
DX: R68.89 Other general symptoms and signs (principal)
CPT/HCPCS: 36415; 82607; 82728; 83540; 83550; 85025

== ENCOUNTER 2019-09-18 17:22 | Emergency (ER) | payer MEDICAID, SELFPAY ==
[2019-09-18 17:26] VITALS: BP 142/78; PULSE 66; RESP 16; TEMP 37.2; O2SAT 96
--- NOTE | 2019-09-18 17:51 | ED.GENADUL_ITS ---
Discharge Plan Disposition Patient Disposition: HOME Condition: Stable Discharge Details Chief Complaint: Abd Prob Clinical Impression: Abdominal pain Primary Care Provider: Laura Blackwell ED Provider: Marva Patel Home Meds and New Rx's Prescriptions: No Action methadone 10 mg/5 mL solution 105 mg PO DAILY RF: 0 pregabalin [Lyrica] 20 MG/1 ML solution 100 mg PO BID RF: 0 PROVENTIL HFA 18 GM HFA.AER.AD 2 puff Inhalation Q 4-6 HRS RF: 0 alprazolam 0.5 MG tablet 0.5 mg PO BID PRN (Reason: Anxiety) RF: 0 ibuprofen 800 mg tablet 800 mg PO TID PRN (Reason: pain) Qty: 30 RF: 0 levofloxacin [Levaquin] 750 mg tablet 750 mg PO QHS Qty: 7 RF: 0 metoclopramide HCl [Reglan] 10 mg tablet 10 mg PO Q6H PRN (Reason: nausea and vomiting) Qty: 8 RF: 0 trazodone 100 MG tablet 200 mg PO HS RF: 0 Discharge Instructions Instructions: Abdominal Pain (ED) Additional Instructions: Drink plenty of fluids. Rest activities as tolerated. Continue your daily medications. Follow-up promptly with your PCP. Call [facility] for reevaluation. Ovary was not well visualized on your CT image. Return for increased pain, worsening symptoms or alarming symptoms as discussed sooner if needed. Referrals: [facility] [place]] Medical Decision Making <ELIANE Rivas - Last Filed: 09/19/19 00:44> Is a 49-year-old patient presenting for complaints of abdominal pain noted in the right lower quadrant which began 4 hours ago. Patient reports 8 out of 10 abdominal pain associated with nausea. Patient denies any bowel changes. Denies any active vomiting, fever, chills, headache or dizziness at this time. Denies any dysuria, urgency or frequency. Denies any concern of as she is status post hysterectomy. Does have a history history of ovarian cyst on the right and tubal with rupture on the left. See HPI for the remainder of patient's history. On physical exam patient does have notable right lower quadrant tenderness with palpation. Patient is nontoxic-appearing. Patient's vital signs revealed mild hypertension with a blood pressure of 142/78. No tachypnea, tachycardia or increase in respiratory effort noted. Given patient's HPI and initial presentation concern for possible appendicitis, ovarian torsion or ovarian cyst rupture remains in differential diagnosis. Did call radiology who is unable to do ultrasound of ovary at this time. We will p elke for CT, IV access, IV fluids, pain medication as well as nausea medication and baseline labs. Patient agrees with this plan of care. Patient's labs reveal a white blood cell count of 3.8. Patient H&H 11 and 33, this is improved from her baseline. Patient's electrolytes within normal limits, no significant abnormalities noted to renal function or liver function. Patient's urinalysis reveals no signs of acute infection. FINDINGS: Lungs: There is minimal bibasilar atelectasis. Mediastinum: Hiatal hernia. Liver: Normal. No mass. Gallbladder and bile ducts: The patient is status post cholecystectomy. No biliary ductal dilatation. Pancreas: Normal. No ductal dilation. Spleen: Normal. No splenomegaly. Adrenals: Normal. No mass. Kidneys and ureters: Normal. No hydronephrosis. Stomach and bowel: Unremarkable. No obstruction. Minimal wall thickening cannot be excluded in left colon. Appendix: No evidence of appendicitis. Intraperitoneal space: Unremarkable. No free air. No significant fluid collection. Vasculature: Unremarkable. No abdominal aortic aneurysm. Lymph nodes: Unremarkable. No enlarged lymph nodes. Bladder: Unremarkable as visualized. Reproductive: Prior hysterectomy. Bones/joints: Prior fusion right sacroiliac joint. The spine demonstrates mild degenerative changes at multiple levels. Soft tissues: There is an uncomplicated fat-containing umbilical hernia. IMPRESSION: 1. Minimal wall thickening cannot be excluded in distal colon. The appearance may be due to contracted state. Correlate clinically for colitis. 2. Normal appendix. 3. Hiatal hernia. Patient examined consistent with colitis. Of note patient's ovaries are not noted in CT report. Ovarian torsion remains in the possibility. Patient is status post hysterectomy. Patient does have a history of ovarian cyst. I did recommend prompt follow-up with [facility]. Dr. Wilson did evaluate the patient does feel patient is stable for discharge home at this time. [facility] will [facility]. Patient also put on the list for follow-up with [facility]. Patient advised to return to the emergency room tomorrow for any persistence or worsening symptoms for acute ultrasound. Patient agrees with this plan of care. Precautions discussed. Patient does feel significantly improved at this time. The patient was stable and requested discharge. Prior to discharge, my usual and customary return precautions were reviewed with the patient - this included follow-up instructions and reasons to return to the Emergency Department if conditions worsens, does not improve as expected, or other new concerns arise. <Donnell Wilson MD - Last Filed: 09/18/19 22:45> Patient was seen and evaluated by me. Patient primarily seen by ELIANE Patel who discussed and reviewed case with me. Agree with her assessment and note as written. For me patient has a benign abdomen with an unremarkable preliminary CT scan report. Presume possible recurrent ovarian cyst. Follow-up with [facility]. Lab Data Lab results reviewed: Yes I reviewed the patient's lab results. HPI <ELIANE Rivas - Last Filed: 09/19/19 00:44> General Date/Time Provider Initiated Documentation: 09/18/19 17:23 . HPI Narrative: This is a 49-year-old patient presenting to the emergency room for complaints of abdominal pain. Patient reports approximately 4 hours of right lower quadrant abdominal pain. Acute in onset. Constant since summer escalation of pain, worse with movements, walking, when hitting a bump in a car on the right here. Associated with mild nausea without vomiting. Patient reports pain does not fully resolve. No vomiting associated. No change in bowel movements. No dysuria, urgency or frequency. Denies radiation toward back or shoulder. Patient is status post hysterectomy several years ago. Does have a history of a tubal with rupture and history of ovarian cyst. Patient does still h ave ovaries. Patient denies any other surgical history relating to her abdomen. Patient denies fever or chills. Reports occasional headaches no at this time. Reports intermittent dizziness preceding onset of pain. Denies any cough, difficulty breathing or shortness of breath or wheezing. Again denies back pain. Denies any paresthesia. Denies any recent change in medications. No other concerns or complaints. Related Data Home Medications Medication Instructions Recorded Confirmed trazodone 200 mg PO HS 09/11/16 09/18/19 Proventil Hfa 2 puff INHALATION Q 4-6 HRS 04/05/17 09/18/19 inhaler pregabalin [Lyrica] 100 mg PO BID ml 04/05/17 09/18/19 methadone 10 mg/5 mL oral solution 105 mg PO DAILY ml 01/07/18 09/18/19 alprazolam 0.5 mg PO BID PRN 07/29/18 09/18/19 ibuprofen 800 mg PO TID PRN #30 tab 09/25/18 05/26/19 levofloxacin [Levaquin] 750 mg PO QHS #7 tab 10/10/18 10/22/18 metoclopramide HCl [Reglan] 10 mg PO Q6H PRN #8 tab 05/26/19 Previous Rx's Medication Instructions Recorded ibuprofen 800 mg PO TID PRN #30 tab 09/25/18 levofloxacin [Levaquin] 750 mg PO QHS #7 tab 10/10/18 metoclopramide HCl [Reglan] 10 mg PO Q6H PRN #8 tab 05/26/19 Allergies Allergy/AdvReac Type Severity Reaction Status Date / Time cephalexin monohydrate Allergy Intermediate Skin Rash Verified 05/26/19 06:28 [From Keflex] zaleplon [From Sonata] Allergy Unknown Verified 05/26/19 06:28 oxycodone HCl Allergy Verified 05/26/19 06:28 [From OxyContin] buspirone AdvReac Unknown Verified 05/26/19 06:28 sertraline HCl [From Zoloft] AdvReac Unknown Verified 05/26/19 06:28 General Stated Complaint: Abd Prob LIO: 3 Review of Systems <ELIANE Rivas - Last Filed: 09/19/19 00:44> All systems reviewed & are unremarkable except as noted in HPI and below PFSH <ELIANE Rivas - Last Filed: 09/19/19 00:44> Medical History Abnormal LFTs (Chronic) Abnormal mammogram (Chronic) Anxiety (Chronic) Benzodiazepine overdose (Resolved) Borderline personality disorder (Chronic) Breast mass in female (Chronic) Chronic neck pain (Chronic) Chronic pain (Chronic) Combinations of opioid type drug with any other drug dependence, in remission (Chronic) Depression (Chronic) Endometriosis (Resolved) Female rectocele without uterine prolapse (Chronic) First degree AV block (Chronic) Hepatitis C (Chronic) Hx of colonic polyps (Chronic) Hx of drug dependence (Acute) On methadone Laceration of wrist (Resolved) Low back pain (Chronic) Memory impairment Noncompliance (Chronic) a. multiple missed outpatient appts with PCP's office per their records Opioid dependence (Chronic) Panic disorder (Chronic) Tobacco abuse (Chronic) Tobacco abuse (Acute) Social History Smoking/Tobacco Use Status: Current every day Tobacco Type: e-cigarettes Alcohol Intake: never Drug use: Never Substance use type: does not use Number of Children: 2 What type of physical activity do you participate in: none Do you feel safe at home: Yes Do you feel safe in your relationship?: Yes Exam <ELIANE Rivas - Last Filed: 09/19/19 00:44> Narrative Exam Narrative: CONST: Healthy appearing patient, in no acute distress. Well hydrated. Alert and oriented. HENMT: Head nomocephalic, normal to inspection. Atraumatic. Hearing grossly normal. EYES: General normal appearance. Alignment normal. Eyelids normal. Conjunctiva normal. Sclera normal. PERRL. NECK: Normal visual inspection. FROM. No lymphadenopathy. Trachea midline. No Midline tenderness. CHEST: Normal insepection of the chest. RESP: Normal respiratory effort. Speaking full sentences. No cough. No wheezing. No retractions. Clear to auscaltation. Breath sound equal and present bilaterally. CARDIO: No JVD. Normal PMI. Regular Rate. Regular Rhythm. Normal peripheral pulses. GI: Normal inspection of abdomen. No distension. Soft. Moderate right lower quadrant tenderness with palpation. Bowel sounds present in all 4 quadrants. Mild rebound to to right lower quadrant. No gaurding. MUSCULOSKELETAL: Normal Gait. FROM of all extremities. Distal neurovascularly intact. Sensation intact distally. SKIN: Normal. Dry. No rashes. NEURO: Alert and awake. Speech clear. PSYCH: Normal affect. Cooperative. Course <ELIANE Rivas - Last Filed: 09/19/19 00:44> Vital Signs Vital signs: Vital Signs Temperature 37.2 C 09/18/19 17:26 Pulse 66 09/18/19 17:26 Respiratory Rate 16 09/18/19 17:26 Blood Pressure 142/78 H 09/18/19 17:26 Pulse Oximetry 96 09/18/19 17:26 Temperature 37.2 C 09/18/19 17:26 Temperature Source Skin 09/18/19 17:26 Pulse 66 09/18/19 17:26 Respiratory Rate 16 09/18/19 17:26 Respiratory Effort 09/18/19 17:42 Blood Pressure 142/78 H 09/18/19 17:26 Pulse Oximetry 96 09/18/19 17:26 Oxygen Delivery Method Room Air 09/18/19 17:26 Oxygen Flow Rate 0 09/18/19 17:26 Pain Level 8 09/18/19 17:26 Comment 09/18/19 17:26
[2019-09-18 18:05] LABS: Bilirubin Small (Negative); Blood Negative (Negative); Clarity Sl Cloudy (Clear); Glucose Negative (Negative); Ketones Negative (Negative); Leukocyte Esterase Negative (Negative); Nitrite Negative (Negative); Specific Gravity >= 1.030 (1.005-1.025); Urobilinogen 0.2 EU/dL (Up TO 0.2); pH 5.5 (5-8)
[2019-09-18 18:19] LABS: RBC 0-2 HPF (0-2)
[2019-09-18 18:20] LABS: Bacteria Few HPF (Negative); Epithelial Cells Few HPF (Negative); Other Cells Mod Transitional (Negative)
[2019-09-18 18:21] LABS: C & S Indicated? C&S Done As Ordered; Casts 0-2 Hyaline LPF (Negative); Crystals Few Calcium Oxalate HPF (Negative); Mucus Heavy (Negative)
[2019-09-18] MEDS: Metoclopramide 10 MG/2 ML VIAL IVP (19:00)
[2019-09-18 19:17] LABS: Absolute Basophil Count 0.01 k/cumm (0.0-0.2); Absolute Eosinophil Count 0.02 k/cumm (0.0-0.7); Absolute Lymphocyte Count 1.83 k/cumm (1.2-3.4); Absolute Monocyte Count 0.31 k/cumm (0.11-0.7); Absolute Neutrophil Count 1.63 k/cumm (1.2-6.7); Basophils % 0.3; Eosinophils % 0.5; HGB 11.1 g/dL (12.0-15.5); Lymphocytes % 48.2; Mean Corp. HGB Concentration 33.6 g/dL (32.0-36.0); Mean Corpuscular Hemoglobin 28.6 pg (27.0-33.0); Mean Corpuscular Volume 85.1 fL (80-95); Monocytes % 8.2; Neutrophils % 42.8; Platelet Count 235 x1000/uL (130-400); RBC 3.88 m/cumm (4.00-5.20); RBC Distribution Width 14.5 % (11.7-14.6)
[2019-09-18 19:26] LABS: Lipase 73 U/L (73-393)
[2019-09-18 19:31] LABS: ALT 18 U/L (14-59); AST 18 U/L (15-37); Albumin 4.6 g/dL (3.4-5.0); Alkaline Phosphatase 85 U/L (46-116); Anion Gap 8.8 mmol/L (3-11); BUN 16 mg/dL (7-18); Bilirubin, Total 0.3 mg/dL (0.2-1.0); CO2 27.2 mmol/L (21.0-32.0); Calcium 9.8 mg/dL (8.5-10.1); Chloride 101 mmol/L (98-107); Estimated GFR 58.45 (mL/min/1.73m2); Glucose 87 mg/dL (74-106); Potassium 3.8 mmol/L (3.5-5.1); Sodium 137 mmol/L (136-145); Total Protein 8.5 g/dL (6.4-8.2)
[2019-09-18] MEDS: Normal Saline 1,000 ML 1000 ML IV (20:03)
[2019-09-18 20:13] VITALS: BP 133/70; PULSE 62; RESP 16; O2SAT 97
[2019-09-18] MEDS: Normal Saline Flush 10 ML SYR IVP (20:21)
[2019-09-18] MEDS: Omnipaque 350 MG/ML 100 ML BTL IJ (20:24)
[2019-09-18] MEDS: Normal Saline - Diluent 50 ML VIAL IV (20:24)
--- NOTE | 2019-09-18 20:24 | DI.CT_ITS ---
EXAM: CT ABDOMEN PELVIS W CLINICAL HISTORY: RLQ pain, r/o appendicitis. TECHNIQUE: Imaging Protocol: Axial computed tomography images with coronal and sagittal reformatted images were created and reviewed CONTRAST MATERIAL: Intravenous: Omnipaque 350 Contrast volume:91 ml Oral: no COMPARISON: CT CT CHEST PE ABD PELVIS W from 10/09/2018 FINDINGS: ABDOMEN: Lung Bases: Normal where visualized. Hiatal hernia. Liver: Normal density. No measurable mass. Gallbladder and biliary tract: Status post cholecystectomy. Stable mild biliary dilatation.. Pancreas: Normal density, no abnormal calcifications or inflammatory process. Spleen: Normal. Kidneys: Normal size, contour and axis. No radiodense stones or obstructive uropathy. No masses seen. Adrenal glands: No masses seen. Abdominal Aorta: Abdominal portion non-dilated. Mild calcification PELVIS: Bladder: Symmetric distention, no gross wall thickening. Bowel: Normal appendix. No obstruction. There is a question mild bowel wall thickening in the desce nding versus lack of distension.. Peritoneal cavity: No ascites, collection or mesenteric inflammatory response. Bones: Degenerative disc changes at L4-5. Hardware related to right sacral fusion. Reproductive organs: Status post hysterectomy. Lymph nodes: Unremarkable. Impression: Question of wall thickening of the descending colon versus lack of distension. No evidence of append icitis. Hiatal hernia.. RADIATION DOSE DELIVERED: 629.21mGy.cm Total DLP DATA REPOSITORY: All CT scans at this facility are submitted to the National Radiology Data Registry (NRDR) Dose Index Registry (DIR) with the [employer] (A[employer]). RADIATION OPTIMIZATION: All CT scans at this facility use at least one of these dose optimization te chniques: automated exposure control; mA and/or kV adjustment per patient size (includes targeted exa ms where dose is matched to clinical indication); or iterative reconstruction.
--- NOTE | 2019-09-18 20:47 | DI.VRAD_ITS ---
PROCEDURE INFORMATION: Exam: CT Abdomen And Pelvis With Contrast Exam date and time: 09/18/2019 8:24 PM Age: 49 years old Clinical indication: Abdominal pain; Localized; Right lower quadrant (rlq); Prior surgery; Surgery date: 6+ months; Surgery type: Si fusion, hysterectomy TECHNIQUE: Imaging protocol: Computed tomography of the abdomen and pelvis with intravenous contrast. Radiation optimization: All CT scans at this facility use at least one of these dose optimization techniques: automated exposure control; mA and/or kV adjustment per patient size (includes targeted exams where dose is matched to clinical indication); or iterative reconstruction. Contrast material: [id number]; Contrast volume: 91 ml; Contrast route: IV RT UPPER ARM 20G; COMPARISON: CR XR hip LT complete AP pelvis 06/13/2018 2:34 PM FINDINGS: Lungs: There is minimal bibasilar atelectasis. Mediastinum: Hiatal hernia. Liver: Normal. No mass. Gallbladder and bile ducts: The patient is status post cholecystectomy. No biliary ductal dilatation. Pancreas: Normal. No ductal dilation. Spleen: Normal. No splenomegaly. Adrenals: Normal. No mass. Kidneys and ureters: Normal. No hydronephrosis. Stomach and bowel: Unremarkable. No obstruction. Minimal wall thickening cannot be excluded in left colon. Appendix: No evidence of appendicitis. Intraperitoneal space: Unremarkable. No free air. No significant fluid collection. Vasculature: Unremarkable. No abdominal aortic aneurysm. Lymph nodes: Unremarkable. No enlarged lymph nodes. Bladder: Unremarkable as visualized. Reproductive: Prior hysterectomy. Bones/joints: Prior fusion right sacroiliac joint. The spine demonstrates mild degenerative changes at multiple levels. Soft tissues: There is an uncomplicated fat-containing umbilical hernia. IMPRESSION: 1. Minimal wall thickening cannot be excluded in distal colon. The appearance may be due to contracted state. Correlate clinically for colitis. 2. Normal appendix. 3. Hiatal hernia. Dictated and Authenticated by: Conrado Oates MD. Ordering:NATHANIEL Durham MD
--- NOTE | 2019-09-19 06:37 | NUR.NOTE ---
referral faxed to [facility] for follow up care Nursing Note:
== END 2019-09-18 22:00 | disposition home or self-care (01) ==
PROVIDERS: Emergency Provider Physician Assistant; PCP Nurse Practitioner Family
DX: R10.31 Right lower quadrant pain (principal); R11.0 Nausea; R03.0 Elevated blood-pressure reading, without diagnosis of hypertension
CPT/HCPCS: 36415; 80053; 81025; 83690; 96361; 96374; 96375; 96376; 99285; 74177; 81003; 81015; 85025; 87086; J2765; J3490

== ENCOUNTER 2019-10-31 11:16 | Outpatient (REF) | payer MEDICAID, SELFPAY ==
--- NOTE | 2019-10-31 09:47 | PAPFT_PTH ---
PATIENT: Jodee Gunter LOC: [facility]#:[id number] AGE/SX: 49/F ROOM: RE10/31/[address]: Marva Joyner : 1970 BED: DIS: 10/31/2019 SPEC #: [id number] RECD: 11/03/19 13:02 STATUS: CAROLYN REJonah #: [id number] KAMINI: 10/31/19 09:[address]: Marva Joyner DEPT: [facility] Cytology RECD BY: Monica Franco ENTERED: 11/03/19 13:02 SP TYPE: PAPFT OTHR DR: Laura Blackwell Tissues: 1 - CX/ENDOCX FOR PAP SMEARS Procedures: PAP THIN PREP/UVM Screening HPV DNA PROBE Comments: [id number]
== END 2019-10-31 11:36 ==
LOC: NCHCN 11:16
PROVIDERS: PCP Nurse Practitioner Family; Visit Provider Nurse Practitioner Family
DX: N89.8 Other specified noninflammatory disorders of vagina (principal); Z12.4 Encounter for screening for malignant neoplasm of cervix; Z11.51 Encounter for screening for human papillomavirus (HPV); Z01.419 Encounter for gynecological examination (general) (routine) without abnormal findings
CPT/HCPCS: 88142; 87480; 87510; 87624; 87660

== ENCOUNTER 2019-11-07 03:24 | Outpatient (CLI) | payer MEDICAID, SELFPAY ==
[2019-11-07 11:20] LABS: ALT 24 U/L (14-59); AST 34 U/L (15-37); Albumin 3.7 g/dL (3.4-5.0); Alkaline Phosphatase 75 U/L (46-116); Anion Gap 9.9 mmol/L (3-11); BUN 14 mg/dL (7-18); Bilirubin, Total 0.2 mg/dL (0.2-1.0); CO2 25.1 mmol/L (21.0-32.0); CREATININE 0.71 mg/dL (0.55-1.02); Calcium 8.6 mg/dL (8.5-10.1); Chloride 102 mmol/L (98-107); Glucose 90 mg/dL (74-106); Potassium 4.3 mmol/L (3.5-5.1); Sodium 137 mmol/L (136-145); Total Protein 7.5 g/dL (6.4-8.2)
== END 2019-11-07 03:44 ==
PROVIDERS: PCP Nurse Practitioner Family; Visit Provider Family Medicine
DX: F11.20 Opioid dependence, uncomplicated (principal); Z11.4 Encounter for screening for human immunodeficiency virus [HIV]; Z20.2 Contact with and (suspected) exposure to infections with a predominantly sexual mode of transmission
CPT/HCPCS: 36415; 80053; 86706; 87389; 87522; 85025

== ENCOUNTER 2019-11-12 03:40 | Outpatient (CLI) | payer MEDICAID, SELFPAY ==
[2019-11-12 13:26] LABS: Absolute Eosinophil Count 0.03 k/cumm (0.0-0.7); Absolute Lymphocyte Count 1.86 k/cumm (1.2-3.4); Absolute Neutrophil Count 1.29 k/cumm (1.2-6.7); Eosinophils % 0.9; HCT 31.7 % (36.0-46.0); HGB 10.3 g/dL (12.0-15.5); Lymphocytes % 53.4; Mean Corp. HGB Concentration 32.5 g/dL (32.0-36.0); Mean Corpuscular Hemoglobin 28.4 pg (27.0-33.0); Mean Corpuscular Volume 87.3 fL (80-95); Mean Platelet Volume 8.9 fL (8.0-11.0); Monocytes % 8.6; Neutrophils % 37.1; Platelet Count 222 x1000/uL (130-400); RBC 3.63 m/cumm (4.00-5.20); RBC Distribution Width 14.7 % (11.7-14.6); Reticulocyte 1.2 % (0.5-2.4); White Blood Cell Count 3.48 k/cumm (4.4-10.8)
[2019-11-12 14:45] LABS: Iron 60 ug/dL (50-170); Total Iron Binding Capacity 325 ug/dL (250-450); Transferrin Sat 18 % (15-50)
[2019-11-12 14:52] LABS: ESR 26 mm/hr (0-30)
[2019-11-12 15:13] LABS: Ferritin 28 ng/mL (8-252); TSH 4.02 uIU/mL (0.36-3.74); Vitamin B12 581 pg/mL (193-986)
[2019-11-12 15:18] LABS: Folate > 20.0 ng/mL (8.6-20.0)
[2019-11-12 15:28] LABS: C-Reactive Protein 0.19 mg/dL (0.0-0.3)
[2019-11-13 09:02] LABS: CEA 1.5 ng/mL (See Note)
[2019-11-13 13:08] LABS: Albumin 59.6 % (55.8-66.1); IgA 124 mg/dL (85-499); IgG 1227 mg/dL (610-1,616); IgM 169 mg/dL (35-242); Lambda Free Light Chain 2.88 mg/dL (0.57-2.63); Total Protein 6.7 g/dL (6.3-8.2)
[2019-11-17 08:53] LABS: Methylmalonic Acid 0.18 nmol/mL (<=0.40)
== END 2019-11-12 04:00 ==
PROVIDERS: Internal Medicine Hematology; PCP Nurse Practitioner Family; Visit Provider Family Medicine
DX: D64.9 Anemia, unspecified (principal); K59.00 Constipation, unspecified
CPT/HCPCS: 36415; 80186; 82784; 85652; 82378; 82607; 82728; 82746; 83540; 83550; 83883; 84165; 84443; 85025; 85045; 86140

== ENCOUNTER 2019-11-24 08:03 | Outpatient (CLI) | payer MEDICAID, SELFPAY ==
[2019-11-25 20:50] LABS: COVID-19 RT-PCR Result NEGATIVE (Negative)
== END 2019-11-24 08:23 ==
PROVIDERS: Physical Therapy Assistant; PCP Nurse Practitioner Family; Visit Provider Surgery
DX: Z01.818 Encounter for other preprocedural examination (principal)
CPT/HCPCS: U0003

== ENCOUNTER 2019-11-27 11:01 | Day surgery (SDC) | payer MEDICAID, SELFPAY ==
[2019-11-27] VITALS (7 sets, daily range): BP systolic 90–106; BP diastolic 56–78; PULSE 57–71; RESP 10–20; TEMP 36.5–36.8; O2SAT 92–98
[2019-11-27] MEDS: Lactated Ringers 1,000 ML 80 ML IV (11:45)
--- NOTE | 2019-11-27 12:44 | STOM_PTH ---
PATIENT: Jodee Gunter LOC: [facility]#:[id number] AGE/SX: 49/F ROOM: RE11/27/[address]: Dalia Gupta : 1970 BED: DIS: 11/27/2019 SPEC #: [id number] RECD: 11/27/19 17:14 STATUS: CAROLYN REQ #: [id number] KAMINI: 11/27/19 12:[address]: aDlia Gupta DEPT: Surgical Specimen RECD BY: Monica Franco ENTERED: 11/27/19 17:16 SP TYPE: STOMACH OTHR DR: Laura Blackwell Tissues: 1 - STOMACH BIOPSY 2 - ESOPHAGUS BIOPSY Procedures: GROSS AND MICRO LEVEL 4 Comments: [id number]
--- NOTE | 2019-11-27 13:53 | W.PM.DSUDISC ---
Discharge Plan Disposition Patient Disposition: HOME Condition: Stable Discharge Details Reason For Visit: SCREENING Attending Provider: Dalia Gupta Primary Care Provider: Laura Blackwell Home Meds and New Rx's Prescriptions: Continued methadone 10 mg/5 mL solution 105 mg PO DAILY RF: 0 budesonide-formoterol [Symbicort] 160-4.5 mcg/actuation HFA aerosol inhaler 2 puff IH BID RF: 0 lidocaine 3 % cream 1 applic TP QID RF: 0 albuterol sulfate [ProAir HFA] 90 mcg/actuation HFA aerosol inhaler 2 puff IH Q6H PRNRF: 0 psyllium husk [Metamucil] 0.4 gram capsule 0.4 gm PO DAILY RF: 0 pregabalin [Lyrica] 20 MG/1 ML solution 100 mg PO BID RF: 0 alprazolam 0.5 MG tablet 0.5 mg PO BID PRN (Reason: Anxiety) RF: 0 trazodone 100 MG tablet 200 mg PO HS RF: 0 Discontinued ibuprofen 800 mg tablet 800 mg PO TID PRN (Reason: pain) Qty: 30 RF: 0 Discharge Instructions Additional Instructions: Findings:Harjit wrap is intact Continue with lifestyle modifications: no alcohol, tobacco products, Aspirin or NSAID's (ibuprofen, Motrin, Naprosyn, aleve, etc), soda pop/any carbonated beverages, caffeine (including tea & chocolate), and acidic foods, (tomatoes, citrus, onions, peppermints) spicy foods. Do not lie down for 30 minutes after eating, and do not eat 2 hours prior to bedtime. Avoid wearing tight fitting clothing/ belts Stop smoking. No alcohol use Methadone will make you very constipated. Continue to use fiber Please call if you develop: fevers >101.5 Nausea or Vomiting Abdominal pain that is not transient DAY SURGERY UNIT POST COLONOSCOPY INSTRUCTIONS 1. Because there will be medication in your system for the next 24 hours, you may feel a little sleepy. Your coordination will be affected. Therefore: a. Do not drive or operate dangerous equipment for 24 hours. b. Do not drink alcohol beverages for 24 hours (not even beer). c. Plan to go home and rest for the day. 2. Generally there are no restrictions on your activity after a day or so has gone by, but you may feel a bit fatigued for a few days. 3 After you arrive home you may have a light meal and return to a normal diet as you can tolerate it without feeling sick to your stomach. 4. After surgery, you may feel pain or discomfort. This should be only transient, but if it persists please contact your doctor. 5. If there are any questions regarding the findings of your procedure, please feel free to contact your doctor. 6. If you are unable to contact your doctor with a problem, contact the hospital at [phone]. 7. Continue all your regular medications unless directed otherwise. I understand the above instructions and have no questions. Signature of Patient or Responsible Adult Escort Date/Time Name of Responsible Adult Escort Signature of Nurse Date/Time Discharge Orders Discharge Orders: Discharge Order (Routine); Ordered 11/27/19 Ordered By: Dalia Gupta
--- NOTE | 2019-11-27 13:59 | ENDO_ITS ---
Date of service: 11/27/19 Time of Service: 13:59 Endoscopy Report DATE OF PROCEDURE: 11/27/19 PRE-OP DIAGNOSIS: reflux POST-OP DIAGNOSIS: other (wrap intact (s/p Harjit) - this is intact. undigested food ) PROCEDURE: egd w/ bx SURGEON: Dalia Gupta ANESTHESIA: MAC ESTIMATED BLOOD LOSS: 1 PATHOLOGY: other COMPLICATIONS: None DISPOSITION: PACU PROCEDURE DESCRIPTION: After informed consent was obtained the patient was take to the procedure room and placed in a supine position. Monitors were applied and a time out was done. The patients name, date of , procedure type, allergies to medications and metal in their body was reviewed. A bite block was placed and the patient was sedated. Once sedated and comfortable the gastroscope was advanced through the oropharynx which was grossly normal into the esophagus. The proximal and mid-esophagus were nl. In the distal esophagus there was evidence of a previous Lorne. Her wrap is intact. The scope was advanced into the stomach and through the pylorus into the 3rd portion of the duodenum. The duodenum was noted to be nl. Biopsies were done biopsies were done. All specimens are retrieved and there is no bleeding noted.. The scope was retracted back into the stomach and biopsies were done to rule out H. pylori. The patient had obvious food in the stomach. She is eaten within the last 8 hours. There is remnants of the greasy white and yellow material within the stomach. This was suctioned as best as I could. Any small lesions may have been missed. there were no ulcers or gastritis. The scope was retroflexed. The cardia and fundus were noted to be normal. There no a hiatal hernia noted. The scope was retracted back into the esophagus and biopsies were done of the GE junction to rule out Contreras's. The Z line was regular. The GE junction/wrap is was at 35 cm. The scope was removed and the patient was woken up and taken back to [facility] in stable condition.
--- NOTE | 2019-11-27 14:03 | W.COLOREPORT ---
Date of service: 11/27/19 Time of Service: 14:03 Colonoscopy Report Date of procedure: 11/27/19 Pre-op diagnosis general: constipation/changein bowels Procedure: aborted CE Surgeon: Dalia Gupta Anesthesia proc note operative: MAC Estimated blood loss (mL): 0 Prep: Miralax/Dulcolax Procedure Description: After informed consent was obtained the patient was taken to the procedure room and placed in a left decubitous position. Monitors were applied and a time out was done. The patients name, date of , procedure, allergies to medications and metal in their body was reviewed. The patient was then sedated. Once sedated and comfortable a rectal exam was done. External exam was normal. Internal exam revealed no palpable masses. The anus was very patulent for time. The scope was then introduced and retrofelexed. no internal hemorrhoids were identified. Patient had not done any bowel prep. She still had formed stool in the colon. The procedure was terminated. The scope was removed and the patient was woken up and taken back to Same day surgery in stable condition. The patient tolerated the procedure well and there were no immediate complications. Follow up: The patient should follow up in 5-10 years unless they develop changes in bowel habits or other new gastrointestinal complaints. Upon further review of the chart. I did discover that she did have a colonoscopy in [address] Noriega. She had a normal colonoscopy at that time and he said she did not need to have another scope for 10 years. Says she is due for colonoscopy and 2026.
--- NOTE | 2019-11-27 14:18 | PGE_ITS ---
Date of Service Date of service: 11/27/19 Time of Service: 14:19 Assessment and Plan Assessment and plan (1) Anemia: Status: Chronic (2) Adenomatous colon polyp: Status: Acute (3) Hx of drug dependence: Status: Acute (4) Noncompliance: Status: Chronic (5) Constipation: Status: Chronic (6) Normal colonoscopy: Status: Acute (7) Dysphagia: Status: Acute Subjective Subjective Interval history since last seen: Ms Porter showed up to same day surgery today adn was very lethargic adn out of it. she coudln't even stay awake to answer questions, while in a upright seated position. We did proceed w/ her scopes- her stomach was full of food and was non diagnostic. She did not complete a bowel prep and was still full of formed stool, so the colonoscopy was abandoned. She has puncture jacobsen on her right hand today. She fell asleep/passed out while eating toast. She is being sent home w/ her mother. She only stays awake when she is actively stimulated. She was like this before anethesia. This is not from the medications that we gave her. The patient was not adequately prepped and the scopes today were not diagnostic. DATE OF PROCEDURE: January 16, 2017 PREOPERATIVE DIAGNOSIS: History of colon polyps. POSTOPERATIVE DIAGNOSIS: Same with diverticula. PROCEDURE: Colonoscopy to the cecum without biopsy. SURGEON: Storm Mancini D.O. ANESTHESIA: Edgard Rothman CRNA DESCRIPTION OF PROCEDURE: The patient is placed in the left lateral position. Rectal exam was performed; no masses were noted. The scope was advanced through the anus into the rectum, through the sigmoid colon, all the way to the cecum. The cecum was well visualized as was the appendiceal orifice and the light was seen in the right lower quadrant on the anterior abdominal wall. The scope was then gradually withdrawn, inspecting the bowel loya carefully, retroflexed in the rectum and then removed. The patient was sent to Day Surgery in satisfactory condition. GROSS PATHOLOGY: Patient with an adequate prep with good visualization to the cecum. There were no polyps or masses noted. Patient had a few sigmoid diverticula but no inflammation and no strictures. By current recommendations, unless she developed risk factors or symptoms, she should not need another colonoscopy for 10 years. cc: Norbert Partida M.D. Dictated by: ISABELLA MANCINI DO Dictated:: <Electronically signed by ISABELLA MANCINI DO> I did review her labs. She has had anemia going as far back as 2013. Her ferritin and iron levels have been relatively normal. She has had multiple EGDs and colonoscopies. She had an EGD in 10/01. This showed mild esophagitis She had an EGD on 08/02 she had a colonoscopy for constipation. She had a small adenomatous polyp at 50 cm. She had an EGD on 11/[address] Mancini. This showed mild chronic esophagitis. She had an EGD on 11/[address] Mancini which was normal. She had a colonoscopy in [address] Mancini which was normal and she did not require another colonoscopy for 10 years per his recommendation. She has had a hysterectomy in the past. I will not see this patient again in follow-up Objective Objective Clinical Data: Vital Signs Temperature 36.6 C 11/27/19 13:33 Pulse 61 11/27/19 13:33 Pulse Rhythm Regular 11/27/19 11:09 Respiratory Rate 19 11/27/19 13:33 Respiratory Depth Normal 11/27/19 11:09 Blood Pressure 101/72 11/27/19 13:33 Pulse Oximetry 92 L 11/27/19 13:33 Respiratory End-tidal CO2 36 11/27/19 13:14 Oxygen Delivery Method Room Air 11/27/19 13:33 Oxygen Flow Rate 3 11/27/19 13:14 Pain Level 7 11/27/19 11:09 Comment 11/27/19 11:09 Intake & Output 11/26/19 11/27/19 11/27/19 23:59 11:59 23:59 Intake Total 400 / 400 Balance 400 / 400 Weight 64.3 kg Intake: IV 400 / 400 Other: Emesis Description None
== END 2019-11-27 15:00 | disposition home or self-care (01) ==
PROVIDERS: PCP Nurse Practitioner Family; Visit Provider Surgery
PROC: (CPT 43239; principal; 2019-11-27 11:45)
DX: K21.9 Gastro-esophageal reflux disease without esophagitis (principal); K59.00 Constipation, unspecified; R13.10 Dysphagia, unspecified; D64.9 Anemia, unspecified; Z53.09 Procedure and treatment not carried out because of other contraindication; Z98.890 Other specified postprocedural states; F17.290 Nicotine dependence, other tobacco product, uncomplicated; Z91.19 Patient's noncompliance with other medical treatment and regimen; F19.90 Other psychoactive substance use, unspecified, uncomplicated
CPT/HCPCS: 43239; 45378; 88305; NC

== ENCOUNTER 2019-12-29 13:28 | Observation (INO) | payer MEDICAID, SELFPAY ==
[2019-12-29 13:35] VITALS: BP 112/99; PULSE 91; RESP 24; TEMP 36.5; O2SAT 99
--- NOTE | 2019-12-29 13:43 | ED.GENADUL_ITS ---
Discharge Plan Disposition Condition: Improving Discharge Details Chief Complaint: Burn Admit Date/Time: 12/29/19 14:40 Admit Provider: Yair Villatoro Attending Provider: Yair Villatoro Primary Care Provider: Laura Blackwell ED Provider: Shanti Matthews Discharge Instructions Activity:: Activity as Tolerated Equipment/Supplies:: No Equipment Needed Diet:: As Tolerated Discharge Orders Discharge Orders: Discharge Order (Routine); Ordered 12/30/19 Ordered By: Yair Villatoro Discharge Data Discharge Date/Time-TO BE ENTERED AT DEPARTURE: 12/29/19 15:50 Medical Decision Making Jodee Gunter is a 49 y/o woman without reported h/o medical problems who presented to the emergency department with hot cooking oil burn to left hand. On exam Pt is non-toxic appearing but in significant distress. Benign cardiopulmonary exam. Left hand with partial thickness burn to the palmar and dorsal surfaces from just proximal 2-5 MCP joint to finger tips and just distal to 1st MCP joint to distal finger tip. Circumferential partial thickness burn to all left digits with significant edema to all digits. Extension/flexion intact. Radial pulse intact and symmetric. Brisk cap refill throughout. 2 rings present on 4th digit, removed emergently with electric ring cutter without complication. Attempted irrigation of hand with saline, Pt refused 2/2 pain. IV placed with dilaudid administered, screening labs obtained. I contacted [facility], discussed Pt presentation with Dr. Bower, who recommended silvadene, outpt f/u with burn clinic, no need for further inpt eval or treatment. Pt agreed to irrigation after multiple doses of IV opiate pain meds. Hand irriagated, silvadene placed. Pt continues to complain of extreme pain. Suspect some aspect difficult pain control 2/2 chronic methadone use, doubt compartment syndrome at this time given location/mechanism. Plan for admission for pain control. Labs reviewed, emergently non-actionable. Exam/hx not c/w sepsis, significant trauma to body area other than hand, other acute emergent life/limb threatening pathology. Clinical Impression: hand burn Dispostion: [facility] inpatient Medical Records Medical records reviewed: Yes I reviewed the patient's medical records. Lab Data Lab results reviewed: Yes I reviewed the patient's lab results. HPI General Mode of arrival: EMS . Date/Time Provider Initiated Documentation: 12/29/19 13:41 . Limitations to Documentation: no limitations . Information obtained by: patient, EMS, RN notes reviewed and old records reviewed . HPI Narrative: Jodee Gunter is a 49 y/o woman without h/o major medical problems presenting to the emergency department with hand burn. Pt reports that JPTA she was cooking fired chicken when the rbyant with oil slipped from her hand and hot oil coated her left hand. Pt reports no other burn/injury other than to the left hand. Pt reports that she was previously in her usual state of health, no recent illness. Pt reports severe pain to left hand and fingers. She denies any other pain, fever, vomiting, rash, numbness, weakness, cough, SOB. Pt reports last tetanus was within 5 years. Pt takes methadone. Related Data Home Medications Medication Instructions Recorded Confirmed trazodone 200 mg PO HS 09/11/16 12/29/19 pregabalin [Lyrica] 100 mg PO BID ml 04/05/17 12/29/19 methadone 10 mg/5 mL oral solution 105 mg PO DAILY ml 01/07/18 12/29/19 albuterol sulfate 90 mcg/actuation 2 puff IH Q6H PRN 11/21/19 12/29/19 aerosol inhaler lidocaine 3 % topical cream 1 applic TP QID 11/21/19 12/29/19 clonazepam 0.5 mg PO BID PRN 12/29/19 12/29/19 bacitracin zinc-polymyxin B 1 applic TP Q12H #28 gm 12/30/19 hydrocodone-acetaminophen 1 tab PO Q4H PRN PRN #20 tab 12/30/19 metronidazole [Flagyl] 2,000 mg PO ONCE #4 tab 12/30/19 Previous Rx's Medication Instructions Recorded bacitracin zinc-polymyxin B 1 applic TP Q12H #28 gm 12/30/19 hydrocodone-acetaminophen 1 tab PO Q4H PRN PRN #20 tab 12/30/19 metronidazole [Flagyl] 2,000 mg PO ONCE #4 tab 12/30/19 Allergies Allergy/AdvReac Type Severity Reaction Status Date / Time cephalexin monohydrate Allergy Intermediate Skin Rash Verified 12/29/19 15:41 [From Keflex] zaleplon [From Sonata] Allergy Unknown Verified 12/29/19 15:41 oxycodone HCl AdvReac Intermediate Nausea Verified 12/29/19 15:41 [From OxyContin] buspirone AdvReac Unknown Disconnected Verified 12/29/19 15:41 feeling sertraline HCl [From Zoloft] AdvReac Unknown Disconnect Verified 12/29/19 15:41 feeling, I dont feel like myself General Stated Complaint: Burn LIO: 3 Review of Systems Narrative: Constitutional: denies fevers Eyes: denies eye pain ENT: denies ear pain, dental pain, sore throat Cardiovascular: denies chest pain Respiratory: denies SOB, cough GI: denies abdominal pain, vomiting, diarrhea : denies flank pain MSK: denies back pain, neck pain Skin: reports left hand burn Neuro: denies headaches, numbness, weakness PFSH Medical History Abnormal LFTs Abnormal mammogram Adenomatous colon polyp Anemia Anxiety Benzodiazepine overdose Per pt. is unaware of this Borderline personality disorder Pt. states she is not aware of this dx Breast mass in female Chronic neck pain Chronic pain Combinations of opioid type drug with any other drug dependence, in remission Constipation The problem was part of today's visit Depression Endometriosis Female rectocele without uterine prolapse First degree AV block Hepatitis C Pt. states she was unaware of this Hx of colonic polyps Hx of drug dependence On methadone Laceration of wrist Low back pain Memory impairment Nausea & vomiting Noncompliance a. multiple missed outpatient appts with PCP's office per their records Normal colonoscopy (01/16/17) Dr Noriega recommended next in 10 yrs Opioid dependence Panic disorder Sacroiliac joint dysfunction of right side Tobacco abuse Tobacco abuse Surgical History Abdominal hysterectomy Arthroscopy, Shoulder Colonoscopy - MAC (01/16/17) H/O cervical spine surgery (~10/16/18) fusion 1988 H/O spinal fusion Hx laparoscopic cholecystectomy Lorne Fundoplication S/P wrist surgery Social History Smoking/Tobacco Use Status: Current every day Tobacco Type: e-cigarettes Alcohol Intake: never Drug use: Never Substance use type: does not use Number of Children: 2 What type of physical activity do you participate in: none Do you feel safe at home: Yes Do you feel safe in your relationship?: Yes Exam Narrative Exam Narrative: Constitutional: well and [id number], appears to be in signficant pain HENT: head atraumatic/normocephalic/normal inspection, mucous membranes moist Eyes: conjunctiva normal, sclera normal, pupils 3mm b/l Neck: no stridor, normal ROM, trachea midline Resp: normal work of breathing, LCTAB Cardio: normal rate, normal rhythm, no murmur appreciated Skin: warm, dry, normal color, no rash Neuro: alert, not altered, grossly non-focal, normal tone Ext: Left hand with partial thickness burn to the palmar and dorsal surfaces from just proximal 2-5 MCP joint to finger tips and just distal to 1st MCP joint to distal finger tip. Circumferential partial thickness burn to all left digits with significant edema to all digits. Extension/flexion intact. Radial pulse intact and symmetric. Brisk cap refill throughout. 2 rings present on 4th digit. Normal inspection of the RUE. Psych: normal mood, normal affect, normal behavior Course Vital Signs Vital signs: Vital Signs Temperature 36.5 C 12/29/19 13:35 Pulse 91 H 12/29/19 13:35 Respiratory Rate 24 12/29/19 13:35 Blood Pressure 112/99 H 12/29/19 13:35 Pulse Oximetry 99 12/29/19 13:35 Temperature 36.5 C 12/29/19 13:35 Temperature Source Skin 12/29/19 13:35 Pulse 91 H 12/29/19 13:35 Respiratory Rate 24 12/29/19 13:35 Blood Pressure 112/99 H 12/29/19 13:35 Blood Pressure Position Sitting 12/29/19 13:35 Pulse Oximetry 99 12/29/19 13:35 Oxygen Delivery Method Room Air 12/29/19 13:35 Oxygen Flow Rate 0 12/29/19 13:35 Pain Level 10 12/29/19 13:35
[2019-12-29] MEDS: Normal Saline 1,000 ML 1000 ML IV (13:49)
[2019-12-29] MEDS: HYDROmorphone 2 MG/ML VIAL 1 MG IVP ×2 (13:49→13:56)
[2019-12-29 13:51] LABS: Absolute Basophil Count 0.02 10^3/uL (0.0-0.2); Absolute Eosinophil Count 0.02 10^3/uL (0.0-0.7); Absolute Lymphocyte Count 1.41 10^3/uL (1.2-3.4); Absolute Monocyte Count 0.25 10^3/uL (0.1-0.8); Absolute Neutrophil Count 1.27 10^3/uL (1.2-6.7); Basophils % 0.7; Eosinophils % 0.7; HGB 10.7 g/dL (11.2-15.7); Lymphocytes % 47.5; MCH 29.1 pg (27.0-33.0); MCHC 32.4 % (32.0-36.0); MCV 89.7 fL (80-95); MPV 8.7 fL (8.0-11.0); Monocytes % 8.4; Neutrophils % 42.7; Nucleated RBC 0 %; Platelet Count 171 10^3/uL (130-400); RBC 3.68 10^6/uL (3.93-5.22); RDW 14.2 % (11.7-14.6); RDW-SD 46.5 fL; WBC 2.97 10^3/uL (4.4-10.8)
[2019-12-29 14:06] LABS: ALT 21 U/L (14-59); AST 21 U/L (15-37); Albumin 3.9 g/dL (3.4-5.0); Alkaline Phosphatase 91 U/L (46-116); Anion Gap 8.2 mmol/L (3-11); BUN 10 mg/dL (7-18); Bilirubin, Total 0.3 mg/dL (0.2-1.0); CO2 26.8 mmol/L (21.0-32.0); CREATININE 0.97 mg/dL (0.55-1.02); Calcium 9.2 mg/dL (8.5-10.1); Chloride 103 mmol/L (98-107); Glucose 87 mg/dL (74-106); Potassium 3.9 mmol/L (3.5-5.1); Sodium 138 mmol/L (136-145); Total Protein 7.8 g/dL (6.4-8.2)
[2019-12-29] MEDS: Ketorolac 30 MG/ML VIAL IM (14:09)
[2019-12-29] MEDS: ACETAMINOPHEN 1,000 MG/100 ML BTL 400 MG IVPB (14:31)
--- NOTE | 2019-12-29 14:43 | W.PM.HP.N ---
Date of service: 12/29/19 Time of Service: 14:47 Assessment and Plan Assessment and plan (1) Burn of left hand including fingers: Start date: 12/29/19 Start time: 15:06 Status: Acute Assessment and plan: Uncovered wrap, covered in silvadene, unable to see beck under silvadene, bacitracin for wounds and cover Qualifiers: Burn degree: partial thickness (2nd degree) Encounter type: initial encounter Qualified Code(s): T23.202A - Burn of second degree of left hand, unspecified site, initial encounter; T23.232A - Burn of second degree of multiple left fingers (nail), not including thumb, initial encounter (2) At risk for inadequate pain control: Start date: 12/29/19 Start time: 15:10 Status: Acute Assessment and plan: Acute pain From Above. Does have a history of drug dependence and takes methadone daily this will play into pain control. Will give hydrocodone po, morphine q 4 hours (3) Tobacco abuse: Start date: 12/29/19 Start time: 15:15 Status: Acute Assessment and plan: Daily smoker will give nicotine patch for cravings (4) Hx of drug dependence: Start date: 12/29/19 Start time: 15:15 Status: Acute Assessment and plan: Takes methadone daily this will make it harder to control patients pain Above case discussed with Dr. Villatoro who is in agreement History of Present Illness History of Present Illness Chief Complaint: Burn on hand, pain on control Narrative: 49 y.o female with PMH of GERD, anxiety, opioid addiction, hep c, presents to [facility] ED for beck to her left hand. Ms. Gunter was moving grease when she burnt her hand. Per ED she sustained partial thickness beck to left hand, which is currently in silvadine and dressed with a cover. Labs remarkable for anemia only, which appears to be chronic otherwise unremarkable. Pain was unable to be controlled in the ED despite being given multiple modalities. Will admit to obs m/s for pain control. Bacitracin for wounds apply QID and cover. She denies CP, SOB, N/V/D Review of Systems All systems reviewed & are unremarkable except as noted in HPI and below [facility] Medical History Abnormal LFTs (Chronic) Abnormal mammogram (Chronic) Adenomatous colon polyp (Acute) Anemia (Chronic) Anxiety (Chronic) Benzodiazepine overdose (Resolved) Per pt. is unaware of this Borderline personality disorder (Chronic) Pt. states she is not aware of this dx Breast mass in female (Chronic) Chronic neck pain (Chronic) Chronic pain (Chronic) Combinations of opioid type drug with any other drug dependence, in remission (Chronic) Constipation (Inactive) The problem was part of today's visit Depression (Chronic) Endometriosis (Resolved) Female rectocele without uterine prolapse (Chronic) First degree AV block (Chronic) Hepatitis C (Chronic) Pt. states she was unaware of this Hx of colonic polyps (Chronic) Hx of drug dependence (Acute) On methadone Laceration of wrist (Resolved) Low back pain (Chronic) Memory impairment Nausea & vomiting (Inactive) Noncompliance (Chronic) a. multiple missed outpatient appts with PCP's office per their records Normal colonoscopy (Inactive 01/16/17) Dr Noriega recommended next in 10 yrs Opioid dependence (Chronic) Panic disorder (Chronic) Sacroiliac joint dysfunction of right side (Inactive) Tobacco abuse (Chronic) Tobacco abuse (Acute) Surgical History Abdominal hysterectomy (Chronic) Arthroscopy, Shoulder (Inactive) Colonoscopy - MAC (Inactive 01/16/17) H/O cervical spine surgery (Acute ~10/16/18) fusion 1988 H/O spinal fusion (Chronic) Hx laparoscopic cholecystectomy (Chronic) Lorne Fundoplication (Chronic) S/P wrist surgery (Chronic) Social History Smoking/Tobacco Use Status: Current every day Tobacco Type: e-cigarettes Alcohol Intake: never Drug use: Never Substance use type: does not use Number of Children: 2 What type of physical activity do you participate in: none Do you feel safe at home: Yes Do you feel safe in your relationship?: Yes Meds Home Medications and Allergies Home Medications Medication Instructions Recorded Confirmed Type trazodone 200 mg PO HS 09/11/16 12/29/19 History pregabalin [Lyrica] 100 mg PO BID ml 04/05/17 12/29/19 History methadone 10 mg/5 mL oral solution 105 mg PO DAILY ml 01/07/18 12/29/19 History albuterol sulfate 90 mcg/actuation 2 puff IH Q6H PRN 11/21/19 12/29/19 History aerosol inhaler lidocaine 3 % topical cream 1 applic TP QID 11/21/19 12/29/19 History clonazepam 0.5 mg PO BID PRN 12/29/19 12/29/19 History Allergies Allergy/AdvReac Type Severity Reaction Status Date / Time cephalexin monohydrate Allergy Intermediate Skin Rash Verified 12/29/19 15:41 [From Keflex] zaleplon [From Sonata] Allergy Unknown Verified 12/29/19 15:41 oxycodone HCl AdvReac Intermediate Nausea Verified 12/29/19 15:41 [From OxyContin] buspirone AdvReac Unknown Disconnected Verified 12/29/19 15:41 feeling sertraline HCl [From Zoloft] AdvReac Unknown Disconnect Verified 12/29/19 15:41 feeling, I dont feel like myself Exam Const General: cooperative and no acute distress Nutritional Appearance: average body habitus Eyes Pupils: PERRL EOM: EOM intact bilaterally Neck Neck: no JVD Lymphatic: no lymphadenopathy noted Chest Chest: normal inspection of the chest Resp Effort & Inspection: normal respiratory effort Auscultation: clear to auscultation bilaterally Cardio Jugular venous pressure: no JVD Rate: regular rate Rhythm: regular rhythm Heart Sounds: S1 normal and S2 normal GI Inspection: normal to inspection Auscultation: normal bowel sounds Skin Trauma: other (burn to hand) Neuro General: patient alert, patient awake and patient oriented x3 Cognition: normal cognition Speech: speech normal Extrem Left upper extremity: hand Details: abnormal to inspection Results Labs Result diagrams: 12/29/19 13:42 12/29/19 13:42 Labs: Laboratory Results - last 24 hr 12/29/19 12/29/19 13:42 13:42 WBC 2.97 L RBC 3.68 L Hgb 10.7 L Hct 33.0 L MCV 89.7 MCH 29.1 MCHC 32.4 RDW 14.2 Plt Count 171 MPV 8.7 Immature Gran % 0.0 Neutrophils % 42.7 Lymphocytes % 47.5 Monocytes % 8.4 Eosinophils % 0.7 Basophils % 0.7 Nucleated RBC % 0 Absolute Neutrophils 1.27 Absolute Lymphocytes 1.41 Absolute Monocytes 0.25 Absolute Eosinophils 0.02 Absolute Basophils 0.02 Sodium 138 Potassium 3.9 Chloride 103 Carbon Dioxide 26.8 Anion Gap 8.2 BUN 10 Creatinine 0.97 Estimated GFR/1.73 m2 >= 60.00 Glucose 87 Calcium 9.2 Total Bilirubin 0.3 AST 21 ALT 21 Alkaline Phosphatase 91 Total Protein 7.8 Albumin 3.9 Last Vital Signs Temp 36.5 C 12/29/19 13:35 Pulse 91 H 12/29/19 13:35 Resp 24 12/29/19 13:35 BP 112/99 H 12/29/19 13:35 Pulse Ox 99 12/29/19 13:35 COVID-19 Screening Have you,or household,traveled outside [place] in last 14 days?: No
--- NOTE | 2019-12-29 14:49 | NUR.NOTE ---
Nursing Note: Rinsed burned hand off with NS. Per MD, filled basin with NS to have patient place her hand in as tolerated.
--- NOTE | 2019-12-29 15:10 | NUR.NOTE ---
Nursing Note: Applied Silvadiene and wrapped loosely with kerlex per MD.
[2019-12-29] MEDS: Silver sulfaDIAZINE 1% 25 GM TUBE (15:13)
[2019-12-29 16:02] VITALS: PULSE 65; RESP 18; O2SAT 91
[2019-12-29 16:28] VITALS: BP 115/69; PULSE 61; RESP 18; TEMP 35.9; O2SAT 96
[2019-12-29 16:30] VITALS: BP 115/69; PULSE 61; RESP 18; TEMP 35.9; O2SAT 96
[2019-12-29] MEDS: Heparin 5,000 UNITS/ML VIAL 5000 UNITS SC ×2 (17:33→23:33)
[2019-12-29] MEDS: Normal Saline Flush 10 ML SYR IVP (18:07)
[2019-12-29] MEDS: MORPHine 2 MG/ML SYR IVP (18:07)
[2019-12-29 21:54] VITALS: BP 124/56; PULSE 64; RESP 18; TEMP 35.9; O2SAT 94
[2019-12-29] MEDS: traZODone 100 MG TAB 200 MG PO (22:15)
[2019-12-29] MEDS: clonazePAM 0.5 MG TAB PO (22:15)
[2019-12-29 22:45] VITALS: BP 129/55; PULSE 61; RESP 19; TEMP 36.4; O2SAT 99
[2019-12-30] MEDS: HYDROcodone 5/Acetaminophen 325 TAB PO ×2 (04:48→08:42)
[2019-12-30] MEDS: Normal Saline Flush 10 ML SYR IVP ×2 (08:12→11:34)
[2019-12-30] MEDS: Heparin 5,000 UNITS/ML VIAL 5000 UNITS SC (08:13)
[2019-12-30 08:18] VITALS: BP 122/74; PULSE 65; RESP 17; TEMP 36.7; O2SAT 98
[2019-12-30 08:18] LABS: COVID-19 RT-PCR UVMMC Result Negative (Negative)
[2019-12-30] MEDS: Methadone Liquid 10 MG/ML 105 MG PO (08:33)
[2019-12-30] MEDS: clonazePAM 0.5 MG TAB PO (08:42)
--- NOTE | 2019-12-30 09:47 | INITIAL_ITS ---
- If Service Date Differs Date of service: 12/30/19 Time of Service: 17:25 Care Management Initial Assess REASON FOR HOSPITALIZATION:: Beck to hand, pain control PAST MEDICAL HISTORY/PAST SURGICAL HISTORY:: 49 y.o female with PMH of GERD, anxiety, opioid addiction, hep c, presents to [facility] ED for beck to her left hand. Ms. Gunter was moving grease when she burnt her hand. Per ED she sustained partial thickness beck to left hand, which is currently in silvadine and dressed with a cover. Labs remarkable for anemia only, which appears to be chronic otherwise unremarkable. Pain was unable to be controlled in the ED despite being given multiple modalities. Will admit to obs m/s for pain control. Bacitracin for wounds apply QID and cover. PREVIOUS FUNCTIONAL STATUS/SOCIAL/FAMILY SUPPORTS:: Jodee resides in [facility] with her , Scott. She is independent at baseline in the community. CURRENT FUNCTIONAL STATUS:: Jodee was sitting up in bed, ready for discharge. She reported not requiring a last dose letter as she continues to have take- homes at this time. She shared no additional concerns for discharge except requesting additional gauze; CM wrote on board for RN. ADVANCE DIRECTIVES:: None on file at [facility]. Has patient been provided with info about the portal/API?: Yes Did the patient sign up for the portal?: No CODE STATUS:: Full Code INSURANCE COVERAGE / FINANCIAL ISSUES:: Medicaid CURRENT HOME/COMMUNITY SERVICES/EQUIPMENT:: No current services, equipment. PRIMARY CARE PHYSICIAN:: Laura Blackwell POTENTIAL DISCHARGE NEEDS:: Last dose letter; SUSAN. Follow up appointments. PATIENT/FAMILY EDUCATION NEEDS:: Review of discharge instructions, discuss Ask Me Three. ANTICIPATED BARRIERS TO DISCHARGE:: None identified. TRANSPORTATION:: Via private vehicle with her . PLAN:: Jodee will return home when ready per MD. She will follow up with her PCP and plan of care as prescribed. She will transport via private vehicle with her daughter.
--- NOTE | 2019-12-30 10:19 | PDOC.CMDIS ---
LACE Index Scoring Tool - Questions: Length of Stay (in days): 1 Acuity (Admit via E.D.?): Yes E.D. Visits: 4 - Answers: Total Score: 8 Risk of Readmission: Low Risk Care Management Discharge Reason for Hospitalization: Sequeira to hand, pain control Discharge Plan: Jodee will return home when ready per MD. She will follow up with her PCP and plan of care as prescribed. She will transport via private vehicle with her . Patient/Family Education Needs: Review of discharge instructions, discuss Ask Me Three. Services Needed at Discharge: Outpatient Therapy ([facility] )
[2019-12-30] MEDS: Ketorolac 30 MG/ML VIAL IVP (11:34)
--- NOTE | 2019-12-30 12:42 | W.PM.DS.N ---
Date of service: 12/30/19 Time of Service: 12:43 DS: Diagnosis Discharge Diagnosis (1) Burn of left hand including fingers: Status: Acute (2) At risk for inadequate pain control: Status: Acute (3) Tobacco abuse: Status: Acute (4) Hx of drug dependence: Status: Acute Discharge Plan Disposition Patient Disposition: HOME Condition: Improving Discharge Details Chief Complaint: Burn Reason For Visit: LINARES TO HAND, PAIN CONTROL Admit Date/Time: 12/29/19 14:40 Admit Provider: Yair Villatoro Attending Provider: Yair Villatoro Primary Care Provider: Laura Blackwell ED Provider: Shanti Matthews [facility] Course Hospital Course: 49 y.o female with PMH of GERD, anxiety, opioid addiction, hep c, presents to [facility] ED for linares to her left hand. Ms. Gunter was moving grease when she burnt her hand. Per ED she sustained partial thickness linares to left hand. Labs remarkable for anemia only, which appears to be chronic. Pain was unable to be controlled in the ED despite being given multiple modalities. She wasadmitted under observation status for pain control. Bacitracin for wounds apply QID and cover. With hydrocodone, titrated to 7.5mg/325mg strength her pain control was adequate. Follow up with PCP in 3-6 days. Home Meds and New Rx's Prescriptions: New hydrocodone-acetaminophen 7.5-325 mg Tablet 1 tab PO Q4H PRN PRNQty: 20 RF: 0 bacitracin zinc-polymyxin B 500-10,000 unit/gram ointment 1 applic TP Q12H Qty: 28 RF: 0 Continued methadone 10 mg/5 mL solution 105 mg PO DAILY RF: 0 lidocaine 3 % cream 1 applic TP QID RF: 0 albuterol sulfate [ProAir HFA] 90 mcg/actuation HFA aerosol inhaler 2 puff IH Q6H PRNRF: 0 pregabalin [Lyrica] 20 MG/1 ML solution 100 mg PO BID RF: 0 clonazepam 0.5 mg tablet 0.5 mg PO BID PRNRF: 0 trazodone 100 MG tablet 200 mg PO HS RF: 0 Discharge Instructions Instructions: Superficial Burn (GEN) Activity:: Activity as Tolerated Equipment/Supplies:: No Equipment Needed Diet:: As Tolerated DS: Summary Status at Discharge Functional status at discharge: independent ambulation Overall status at discharge: patient is progressing back to baseline Mental Status: mental status grossly normal Speech and Movement: speech and movement normal Mood: congruent mood Affect: normal affect Exam Const General: cooperative and no acute distress Nutritional Appearance: average body habitus Resp Effort & Inspection: normal respiratory effort Auscultation: clear to auscultation bilaterally Cardio Rate: regular rate Rhythm: regular rhythm Heart Sounds: S1 normal and S2 normal Extrem General: no clubbing, cyanosis or edema Psych Appearance: grossly normal Mental Status: mental status grossly normal Speech and Movement: speech and movement normal Mood: congruent mood Affect: normal affect DS: Data Vitals/I&O Vitals and I&O: Vital Signs Temperature 36.7 C 12/30/19 08:18 Temperature Source Tympanic 12/30/19 08:18 Pulse 65 12/30/19 08:18 Pulse Rhythm Regular 12/30/19 08:17 Respiratory Rate 17 12/30/19 08:18 Respiratory Effort Non-Labored 12/30/19 08:17 Respiratory Depth Normal 12/30/19 08:17 Respiratory Pattern Normal 12/30/19 08:17 Blood Pressure 122/74 12/30/19 08:18 Blood Pressure Position Sitting 12/29/19 13:35 Pulse Oximetry 98 12/30/19 08:18 Oxygen Delivery Method Room Air 12/30/19 08:18 Oxygen Flow Rate 0 12/30/19 08:18 Pain Level 7 12/30/19 11:34 Intake & Output 12/29/19 12/30/19 12/30/19 23:59 11:59 23:59 Intake Total 610 / 610 10 10 Output Total 225 / 225 450 / 450 Balance 385 / 385 -440 / -440 Weight 65.771 kg Intake: IV 110 / 110 10 / 10 Oral 500 / 500 Output: Urine 225 / 225 450 / 450 Other: Urine Color Yellow Dark Vidhi Urine Appearance Clear Clear Urine Odor Normal Voiding Methods Toilet Toilet Data Completed and Pending Labs on day of discharge: Labs from last 24 hours 12/29/19 12/29/19 12/29/19 15:50 13:42 13:42 WBC 2.97 L RBC 3.68 L Hgb 10.7 L Hct 33.0 L MCV 89.7 MCH 29.1 MCHC 32.4 RDW 14.2 Plt Count 171 MPV 8.7 Immature Gran % 0.0 Neutrophils % 42.7 Lymphocytes % 47.5 Monocytes % 8.4 Eosinophils % 0.7 Basophils % 0.7 Nucleated RBC % 0 Absolute Neutrophils 1.27 Absolute Lymphocytes 1.41 Absolute Monocytes 0.25 Absolute Eosinophils 0.02 Absolute Basophils 0.02 Sodium 138 Potassium 3.9 Chloride 103 Carbon Dioxide 26.8 Anion Gap 8.2 BUN 10 Creatinine 0.97 Estimated GFR/1.73 m2 >= 60.00 Glucose 87 Calcium 9.2 Total Bilirubin 0.3 AST 21 ALT 21 Alkaline Phosphatase 91 Total Protein 7.8 Albumin 3.9 COVID-19 PCR Negative Nasopharyn COVID-19 PCR Not Applicable Ref Test Perform [facility] [place] [facility] Medical History Abnormal LFTs (Chronic) Abnormal mammogram (Chronic) Adenomatous colon polyp (Acute) Anemia (Chronic) Anxiety (Chronic) Benzodiazepine overdose (Resolved) Per pt. is unaware of this Borderline personality disorder (Chronic) Pt. states she is not aware of this dx Breast mass in female (Chronic) Chronic neck pain (Chronic) Chronic pain (Chronic) Combinations of opioid type drug with any other drug dependence, in remission (Chronic) Constipation (Inactive) The problem was part of today's visit Depression (Chronic) Endometriosis (Resolved) Female rectocele without uterine prolapse (Chronic) First degree AV block (Chronic) Hepatitis C (Chronic) Pt. states she was unaware of this Hx of colonic polyps (Chronic) Hx of drug dependence (Acute) On methadone Laceration of wrist (Resolved) Low back pain (Chronic) Memory impairment Nausea & vomiting (Inactive) Noncompliance (Chronic) a. multiple missed outpatient appts with PCP's office per their records Normal colonoscopy (Inactive 01/16/17) Dr Noriega recommended next in 10 yrs Opioid dependence (Chronic) Panic disorder (Chronic) Sacroiliac joint dysfunction of right side (Inactive) Tobacco abuse (Chronic) Tobacco abuse (Acute) Surgical History Abdominal hysterectomy (Chronic) Arthroscopy, Shoulder (Inactive) Colonoscopy - MAC (Inactive 01/16/17) H/O cervical spine surgery (Acute ~10/16/18) fusion 1988 H/O spinal fusion (Chronic) Hx laparoscopic cholecystectomy (Chronic) Lorne Fundoplication (Chronic) S/P wrist surgery (Chronic) Social History Smoking/Tobacco Use Status: Current every day Tobacco Type: e-cigarettes Alcohol Intake: never Drug use: Never Substance use type: does not use Number of Children: 2 What type of physical activity do you participate in: none Do you feel safe at home: Yes Do you feel safe in your relationship?: Yes
[2019-12-30 15:22] VITALS: BP 130/83; PULSE 60; RESP 17; TEMP 36; O2SAT 95
== END 2019-12-30 16:53 | disposition home or self-care (01) ==
LOC: ER 15:24 → MS 15:50
PROVIDERS: Admitting Provider Family Medicine; Emergency Provider Student in an Organized Health Care Education/Training Program; PCP Nurse Practitioner Family; Visit Provider Family Medicine
DX: T23.232A Burn of second degree of multiple left fingers (nail), not including thumb, initial encounter (principal); F17.210 Nicotine dependence, cigarettes, uncomplicated; K21.9 Gastro-esophageal reflux disease without esophagitis; B19.20 Unspecified viral hepatitis C without hepatic coma; D64.9 Anemia, unspecified; X10.2XXA Contact with fats and cooking oils, initial encounter; F11.21 Opioid dependence, in remission; Z79.899 Other long term (current) drug therapy; F32.9 Major depressive disorder, single episode, unspecified; G89.29 Other chronic pain; F41.0 Panic disorder [episodic paroxysmal anxiety]
CPT/HCPCS: 36415; 80053; 96361; 96365; 96372; 96375; 99217; 99223; 99285; U0003; 85025; 99220; 99284; G0378; J0131; J1644; J1885; J2270

== ENCOUNTER 2020-01-16 15:00 | Outpatient (REF) | payer MEDICAID, SELFPAY ==
[2020-01-20 17:26] LABS: Patient Race White; SARS-CoV-2 RNA Undetected (Undetected); SARS-CoV-2 Specimen Source Nasal
== END 2020-01-16 15:20 ==
LOC: NCHCN 15:00
PROVIDERS: PCP Nurse Practitioner Family; Visit Provider Nurse Practitioner Family
DX: Z20.828 Contact with and (suspected) exposure to other viral communicable diseases (principal)
CPT/HCPCS: U0003

== ENCOUNTER 2020-01-28 11:36 | Emergency (ER) | payer MEDICAID, SELFPAY ==
[2020-01-28] VITALS (33 sets, daily range): BP systolic 128–153; BP diastolic 58–94; PULSE 57–85; RESP 9–24; TEMP 37.2–37.5; O2SAT 92–98
--- NOTE | 2020-01-28 11:30 | RT.EKG_ITS ---
APPROVED REPORT Exam: Resting ECG Patient Location: E HR:81 bpm ECG Measurements Heart Rate 81 AXIS NV 182 P 43 QRSd 67 QRS 38 QT 394 T 73 QTc 457 Conclusion Sinus rhythm...normal P axis, V-rate 60- 99 Abnrm R prog, consider ASMI or lead placement...Q >30mS, diminished R, V1-V2 I have reviewed and interpreted ECG and agree with software generated interpretation.
--- NOTE | 2020-01-28 12:00 | RT.EKG_ITS ---
APPROVED REPORT Exam: Resting ECG Patient Location: E HR:73 bpm ECG Measurements Heart Rate 73 AXIS AK 211 P 24 QRSd 76 QRS 37 QT 430 T 62 QTc 474 Conclusion Sinus rhythm...normal P axis, V-rate 60- 99 Prolonged AK interval...AK >210, V-rate 50- 90 I have reviewed and interpreted ECG and agree with software generated interpretation.
[2020-01-28 12:12] LABS: Abs Immature Grans 0.01 10^3/uL (0.0-0.06); Absolute Basophil Count 0.01 10^3/uL (0.0-0.2); Absolute Eosinophil Count 0.01 10^3/uL (0.0-0.7); Absolute Lymphocyte Count 1.26 10^3/uL (1.2-3.4); Absolute Monocyte Count 0.21 10^3/uL (0.1-0.8); Absolute Neutrophil Count 1.54 10^3/uL (1.2-6.7); Basophils % 0.3; Eosinophils % 0.3; HCT 32.3 % (36.0-46.0); HGB 10.8 g/dL (11.2-15.7); Immature Grans % 0.3; Lymphocytes % 41.4; MCH 29.9 pg (27.0-33.0); MCHC 33.4 % (32.0-36.0); MCV 89.5 fL (80-95); MPV 9.1 fL (8.0-11.0); Monocytes % 6.9; Neutrophils % 50.8; Nucleated RBC 0 %; Platelet Count 179 10^3/uL (130-400); RBC 3.61 10^6/uL (3.93-5.22); RDW 13.5 % (11.7-14.6); RDW-SD 44.6 fL; WBC 3.04 10^3/uL (4.4-10.8)
[2020-01-28 12:28] LABS: ALT 18 U/L (14-59); AST 16 U/L (15-37); Albumin 3.6 g/dL (3.4-5.0); Alkaline Phosphatase 77 U/L (46-116); Anion Gap 8.6 mmol/L (3-11); BUN 7 mg/dL (7-18); Bilirubin, Total 0.2 mg/dL (0.2-1.0); CO2 26.4 mmol/L (21.0-32.0); CREATININE 0.94 mg/dL (0.55-1.02); Calcium 8.8 mg/dL (8.5-10.1); Chloride 103 mmol/L (98-107); Glucose 113 mg/dL (74-106); Magnesium 1.9 mg/dL (1.8-2.4); Potassium 3.4 mmol/L (3.5-5.1); Sodium 138 mmol/L (136-145); Total Protein 7.5 g/dL (6.4-8.2)
[2020-01-28 12:29] LABS: PTT Activated 23.2 sec (21.0-31.4); Prothrombin Time 9.9 sec (9.3-11.0); Troponin I < 0.05 ng/mL (<0.06)
[2020-01-28] MEDS: LORazepam 0.5 MG TAB PO ×2 (12:43→14:55)
--- NOTE | 2020-01-28 12:57 | ED.GENADUL_ITS ---
Discharge Plan Disposition Patient Disposition: HOME Condition: Improving Discharge Details Clinical Impression: Dyspnea, Palpitations Primary Care Provider: Laura Blackwell ED Provider: Sofy Gusman Home Meds and New Rx's Prescriptions: Continued methadone 10 mg/5 mL solution 105 mg PO DAILY RF: 0 lidocaine 3 % cream 1 applic TP QID RF: 0 albuterol sulfate [ProAir HFA] 90 mcg/actuation HFA aerosol inhaler 2 puff IH Q6H PRNRF: 0 pregabalin [Lyrica] 20 MG/1 ML solution 100 mg PO BID RF: 0 clonazepam 0.5 mg tablet 0.5 mg PO BID PRNRF: 0 hydrocodone-acetaminophen 7.5-325 mg Tablet 1 tab PO Q4H PRN PRNQty: 20 RF: 0 bacitracin zinc-polymyxin B 500-10,000 unit/gram ointment 1 applic TP Q12H Qty: 28 RF: 0 metronidazole [Flagyl] 500 mg tablet 2,000 mg PO ONCE Qty: 4 RF: 0 trazodone 100 MG tablet 200 mg PO HS RF: 0 Discharge Instructions Instructions: Heart Palpitations (ED), Dyspnea (ED) Additional Instructions: Drink plenty of fluids and get plenty of rest. Take your regular medications as directed. Alternate tylenol and motrin as needed and directed for pain. Follow-up with your primary care doctor in 1 week for reevaluation and for referral for outpatient heart monitor symptoms persist or worsen. Return to the emergency department with any worsening or new concerning symptoms. Discharge Data Discharge Date/Time-TO BE ENTERED AT DEPARTURE: 01/28/20 16:55 Discharge Physician: Sofy Gusman Medical Decision Making 1200 -- 49-year-old female with a history of anxiety, depression, borderline personality disorder, panic disorder, previous opiate dependence currently on methadone presents for palpitations and shortness of breath consistent with her usual panic disorder since early this morning. EKG notes a rate of 73, sinus, prolonged [place] interval with no acute ST-T wave ischemic changes. Patient appears in no acute distress and nontoxic. Differential diagnosis includes anxiety, panic attack, dehydration, arrhythmia, electrolyte abnormality. Doubt PE as she has no recent surgery, leg pain or swelling, chest pain. Will check a cardiac work-up, d-dimer, chest x-ray and give a dose of Ativan and reassess. 1400 --labs and imaging reviewed. Troponin negative. Chest x-ray negative. D- dimer obtained and elevated based on age-adjusted cut off. Patient still complaining of some chest tightness. Vitals remained within normal limits. Will give another dose of Ativan and a dose of Toradol and refer for CT chest to rule out PE. 1600 --repeat troponin negative. Repeat EKG unchanged. CT chest negative for PE. Patient feels much better is requesting to go home. Advised to follow up with the primary care doctor for re-evaluation and for referral for outpatient heart monitor if needed. Usual and customary return precautions given prior to discharge. Medical Records Medical records reviewed: Yes I reviewed the patient's medical records. Imaging Data Radiologic Study: Radiologist's impression: XR CHEST 2V PA LATERAL CLINICAL HISTORY: shortness of breath, r/o acute disease TECHNIQUE: 2D digital imaging was performed. COMPARISON: CR RIGHT SHOULDER COMPLETE from 04/26/[address] ABDOMEN PELVIS W from 09/18/2019 FINDINGS: The heart is not enlarged. The lungs are clear and well expanded. No pleural effusion seen. Mediastinal contours appear intact. IMPRESSION: Normal chest CT CHEST PE CTA CLINICAL HISTORY: shortness of breath, elev d dimer, r/o PE. TECHNIQUE: Imaging Protocol: Axial CT angiography was performed with multi- slice acquisition and multi-planar and/or 3D reconstructions. CONTRAST MATERIAL: Intravenous: Omnipaque 350 Contrast volume:structured data in ml COMPARISON: CT CT ABDOMEN PELVIS W from 09/18/2019 FINDINGS: CT angiography of the chest was performed with intravenous infusion of 65 cc of Omnipaque 350. The lungs are clear with central lobular pulmonary emphysematous changes noted, particularly in the lung apices. No pleural effusion. Tracheobronchial tree appears intact. No evidence of pulmonary embolic disease. Thoracic aorta is of normal diameter, no thoracic aortic aneurysm or dissection, major branch vessels appear intact. No mediastinal or hilar adenopathy. Images obtained through the upper abdomen show unremarkable appearance of the visualized portions of the liver, spleen, pancreas, adrenals, and kidneys. IMPRESSION: Negative CT angiogram of the chest. No evidence of pulmonary embolic disease. Lab Data Lab results reviewed: Yes I reviewed the patient's lab results. Labs: Laboratory Tests Range/Units 01/28/20 01/28/20 01/28/20 12:05 12:05 12:05 WBC (4.4-10.8) 10^3/uL 3.04 L RBC (3.93-5.22) 10^6/uL 3.61 L Hgb (11.2-15.7) g/dL 10.8 L Hct (36.0-46.0) % 32.3 L MCV (80-95) fL 89.5 MCH (27.0-33.0) pg 29.9 MCHC (32.0-36.0) % 33.4 RDW (11.7-14.6) % 13.5 Plt Count (130-400) 10^3/uL 179 MPV (8.0-11.0) fL 9.1 Immature Gran % 0.3 Neutrophils % 50.8 Lymphocytes % 41.4 Monocytes % 6.9 Eosinophils % 0.3 Basophils % 0.3 Nucleated RBC % % 0 Absolute Neutrophils (1.2-6.7) 10^3/uL 1.54 Absolute Lymphocytes (1.2-3.4) 10^3/uL 1.26 Absolute Monocytes (0.1-0.8) 10^3/uL 0.21 Absolute Eosinophils (0.0-0.7) 10^3/uL 0.01 Absolute Basophils (0.0-0.2) 10^3/uL 0.01 PT (9.3-11.0) sec 9.9 INR (0.9-1.1) 1.0 APTT (21.0-31.4) sec 23.2 D-Dimer (<500) ng/mlFEU Sodium (136-145) mmol/L 138 Potassium (3.5-5.1) mmol/L 3.4 L Chloride (98-107) mmol/L 103 Carbon Dioxide (21.0-32.0) mmol/L 26.4 Anion Gap (3-11) mmol/L 8.6 BUN (7-18) mg/dL 7 Creatinine (0.55-1.02) mg/dL 0.94 Estimated GFR/1.73 m2 (mL/min/1.73m2) >= 60.00 Glucose (74-106) mg/dL 113 H Calcium (8.5-10.1) mg/dL 8.8 Magnesium (1.8-2.4) mg/dL 1.9 Total Bilirubin (0.2-1.0) mg/dL 0.2 AST (15-37) U/L 16 ALT (14-59) U/L 18 Alkaline Phosphatase (46-116) U/L 77 Troponin I (<0.06) ng/mL < 0.05 Total Protein (6.4-8.2) g/dL 7.5 Albumin (3.4-5.0) g/dL 3.6 Range/Units 01/28/20 01/28/20 12:05 15:50 WBC (4.4-10.8) 10^3/uL RBC (3.93-5.22) 10^6/uL Hgb (11.2-15.7) g/dL Hct (36.0-46.0) % MCV (80-95) fL MCH (27.0-33.0) pg MCHC (32.0-36.0) % RDW (11.7-14.6) % Plt Count (130-400) 10^3/uL MPV (8.0-11.0) fL Immature Gran % Neutrophils % Lymphocytes % Monocytes % Eosinophils % Basophils % Nucleated RBC % % Absolute Neutrophils (1.2-6.7) 10^3/uL Absolute Lymphocytes (1.2-3.4) 10^3/uL Absolute Monocytes (0.1-0.8) 10^3/uL Absolute Eosinophils (0.0-0.7) 10^3/uL Absolute Basophils (0.0-0.2) 10^3/uL PT (9.3-11.0) sec INR (0.9-1.1) APTT (21.0-31.4) sec D-Dimer (<500) ng/mlFEU 668 H Sodium (136-145) mmol/L Potassium (3.5-5.1) mmol/L Chloride (98-107) mmol/L Carbon Dioxide (21.0-32.0) mmol/L Anion Gap (3-11) mmol/L BUN (7-18) mg/dL Creatinine (0.55-1.02) mg/dL Estimated GFR/1.73 m2 (mL/min/1.73m2) Glucose (74-106) mg/dL Calcium (8.5-10.1) mg/dL Magnesium (1.8-2.4) mg/dL Total Bilirubin (0.2-1.0) mg/dL AST (15-37) U/L ALT (14-59) U/L Alkaline Phosphatase (46-116) U/L Troponin I (<0.06) ng/mL < 0.05 Total Protein (6.4-8.2) g/dL Albumin (3.4-5.0) g/dL ECG Data Attestation: I personally reviewed and interpreted this ECG (s) as follows: Interpretation: #1 -- Rate of 73, sinus, no acute ST elevation or depression. W[place] 211. QRS 76. QTc 474. #2 -- Rate of 63, sinus, no acute ST elevation or depression. W[place] 237. QRS 80. QTc 458. HPI General Mode of arrival: ambulatory . Date/Time Provider Initiated Documentation: 01/28/20 11:38 . Limitations to Documentation: no limitations . Information obtained by: patient . HPI Narrative: Patient is a 49-year-old female with a history of anxiety, depression, borderline personality disorder, panic disorder, previous opiate dependence now on methadone who presents with feelings of anxiety, shortness of breath and rapid heart rate since last night, also waking her from sleep at 1 AM. Patient states she feels that her symptoms are consistent with her panic disorder. She denies any fever, cough, chest pain, leg pain, vomiting, abdominal pain, recent travel, recent surgery, recent known sick contacts. Related Data Home Medications Medication Instructions Recorded Confirmed trazodone 200 mg PO HS 09/11/16 12/29/19 pregabalin [Lyrica] 100 mg PO BID ml 04/05/17 12/29/19 methadone 10 mg/5 mL oral solution 105 mg PO DAILY ml 01/07/18 12/29/19 albuterol sulfate 90 mcg/actuation 2 puff IH Q6H PRN 11/21/19 12/29/19 aerosol inhaler lidocaine 3 % topical cream 1 applic TP QID 11/21/19 12/29/19 clonazepam 0.5 mg PO BID PRN 12/29/19 12/29/19 bacitracin zinc-polymyxin B 1 applic TP Q12H #28 gm 12/30/19 hydrocodone-acetaminophen 1 tab PO Q4H PRN PRN #20 tab 12/30/19 metronidazole [Flagyl] 2,000 mg PO ONCE #4 tab 12/30/19 Previous Rx's Medication Instructions Recorded bacitracin zinc-polymyxin B 1 applic TP Q12H #28 gm 12/30/19 hydrocodone-acetaminophen 1 tab PO Q4H PRN PRN #20 tab 12/30/19 metronidazole [Flagyl] 2,000 mg PO ONCE #4 tab 12/30/19 Allergies Allergy/AdvReac Type Severity Reaction Status Date / Time cephalexin monohydrate Allergy Intermediate Skin Rash Verified 12/29/19 15:41 [From Keflex] zaleplon [From Sonata] Allergy Unknown Verified 12/29/19 15:41 oxycodone HCl AdvReac Intermediate Nausea Verified 12/29/19 15:41 [From OxyContin] buspirone AdvReac Unknown Disconnected Verified 12/29/19 15:41 feeling sertraline HCl [From Zoloft] AdvReac Unknown Disconnect Verified 12/29/19 15:41 feeling, I dont feel like myself General Stated Complaint: Chest Pain LIO: 2 Review of Systems All systems reviewed & are unremarkable except as noted in HPI and below Constitutional Constitutional: Reports as per HPI, Denies chills and Denies fever(s) Eyes Eyes: Denies blurry vision ENT Ears, Nose, Mouth, and Throat: Denies dizziness, Denies sore throat and Denies throat swelling Cardiovascular Cardiovascular: Denies chest pain, Reports rapid heart rate, Reports palpitations and Reports dyspnea Respiratory Respiratory: Denies cough and Reports dyspnea Gastrointestinal Gastrointestinal: Denies abdominal pain, Denies diarrhea and Denies vomiting Genitourinary Genitourinary: Denies hematuria and Denies dysuria Musculoskeletal Musculoskeletal: Denies back pain and Denies numbness Integumentary/Breasts Skin/Breast: Denies lesions and Denies rash Neurologic Neurologic: Denies dizziness, Denies localized weakness and Denies numbness Endocrine Endocrine: Reports palpitations Allergic/Immunologic Allergic/Immunologic: Denies throat swelling COUNTS INCLUDE 234 BEDS AT THE [facility] Medical History (Updated 01/28/20 @ 16:40 by Sofy Gusman DO) Abnormal LFTs Abnormal mammogram Adenomatous colon polyp Anemia Anxiety Benzodiazepine overdose Per pt. is unaware of this Borderline personality disorder Pt. states she is not aware of this dx Breast mass in female Chronic neck pain Chronic pain Combinations of opioid type drug with any other drug dependence, in remission Constipation The problem was part of today's visit Depression Endometriosis Female rectocele without uterine prolapse First degree AV block Hepatitis C Pt. states she was unaware of this Hx of colonic polyps Hx of drug dependence On methadone Laceration of wrist Low back pain Memory impairment Nausea & vomiting Noncompliance a. multiple missed outpatient appts with PCP's office per their records Normal colonoscopy (01/16/17) Dr Noriega recommended next in 10 yrs Opioid dependence Panic disorder Sacroiliac joint dysfunction of right side Tobacco abuse Tobacco abuse Surgical History Abdominal hysterectomy Arthroscopy, Shoulder Colonoscopy - MAC (01/16/17) H/O cervical spine surgery (~10/16/18) fusion 1988 H/O spinal fusion Hx laparoscopic cholecystectomy Lorne Fundoplication S/P wrist surgery Social History Smoking/Tobacco Use Status: Current every day Tobacco Type: e-cigarettes Alcohol Intake: never Drug use: Current Sobriety Substance use type: opiates Details: unable to assess in private Number of Children: 2 What type of physical activity do you participate in: none Do you feel safe at home: Yes Do you feel safe in your relationship?: Yes Exam Const General: cooperative, healthy appearing and no acute distress HENMT Head: normal to inspection Face and sinus: normal facial exam Eyes General: appearance normal, both eyes and all related structures EOM: EOM intact bilaterally Neck Neck: normal visual inspection and No submandibular swelling Lymphatic: no lymphadenopathy noted Chest Chest: normal inspection of the chest and no tenderness Resp Effort & Inspection: normal respiratory effort and able to speak in complete sentences Auscultation: clear to auscultation bilaterally Cardio Rate: regular rate Rhythm: regular rhythm GI Inspection: normal to inspection Palpation: soft, not firm, not rigid and nontender Auscultation: normal bowel sounds Skin General skin exam: no rashes or lesions noted Neuro General: patient alert, patient awake and patient oriented x3 Cognition: normal cognition Speech: speech normal Motor: muscle tone normal throughout Sensory Exam: no sensory deficits noted Extrem General: normal to inspection, full ROM, capillary refill normal, no calf tenderness bilaterally and no edema Psych Appearance: grossly normal Mental Status: mental status grossly normal Speech and Movement: speech and movement normal Affect: normal affect Course Vital Signs Vital signs: Vital Signs Temperature 99.5 F 01/28/20 11:42 Pulse 84 01/28/20 11:42 Respiratory Rate 14 01/28/20 11:42 Blood Pressure 136/59 L 01/28/20 11:42 Pulse Oximetry 97 01/28/20 11:42 Temperature 99.5 F 01/28/20 11:42 Temperature Source Skin 01/28/20 11:42 Pulse 84 01/28/20 11:42 Respiratory Rate 14 01/28/20 11:42 Respiratory Effort Incrsd Work of Breathing 01/28/20 11:47 Blood Pressure 136/59 L 01/28/20 11:42 Blood Pressure Position Sitting 01/28/20 11:42 Pulse Oximetry 97 01/28/20 11:42 Oxygen Delivery Method Room Air 01/28/20 11:42 Oxygen Flow Rate 0 01/28/20 11:42 Pain Level 7 01/28/20 12:43 Lab/Test Results Lab/Test Results: Laboratory Tests Range/Units 01/28/20 01/28/20 01/28/20 12:05 12:05 12:05 WBC (4.4-10.8) 10^3/uL 3.04 L RBC (3.93-5.22) 10^6/uL 3.61 L Hgb (11.2-15.7) g/dL 10.8 L Hct (36.0-46.0) % 32.3 L MCV (80-95) fL 89.5 MCH (27.0-33.0) pg 29.9 MCHC (32.0-36.0) % 33.4 RDW (11.7-14.6) % 13.5 Plt Count (130-400) 10^3/uL 179 MPV (8.0-11.0) fL 9.1 Immature Gran % 0.3 Neutrophils % 50.8 Lymphocytes % 41.4 Monocytes % 6.9 Eosinophils % 0.3 Basophils % 0.3 Nucleated RBC % % 0 Absolute Neutrophils (1.2-6.7) 10^3/uL 1.54 Absolute Lymphocytes (1.2-3.4) 10^3/uL 1.26 Absolute Monocytes (0.1-0.8) 10^3/uL 0.21 Absolute Eosinophils (0.0-0.7) 10^3/uL 0.01 Absolute Basophils (0.0-0.2) 10^3/uL 0.01 PT (9.3-11.0) sec 9.9 INR (0.9-1.1) 1.0 APTT (21.0-31.4) sec 23.2 Sodium (136-145) mmol/L 138 Potassium (3.5-5.1) mmol/L 3.4 L Chloride (98-107) mmol/L 103 Carbon Dioxide (21.0-32.0) mmol/L 26.4 Anion Gap (3-11) mmol/L 8.6 BUN (7-18) mg/dL 7 Creatinine (0.55-1.02) mg/dL 0.94 Estimated GFR/1.73 m2 (mL/min/1.73m2) >= 60.00 Glucose (74-106) mg/dL 113 H Calcium (8.5-10.1) mg/dL 8.8 Magnesium (1.8-2.4) mg/dL 1.9 Total Bilirubin (0.2-1.0) mg/dL 0.2 AST (15-37) U/L 16 ALT (14-59) U/L 18 Alkaline Phosphatase (46-116) U/L 77 Troponin I (<0.06) ng/mL < 0.05 Total Protein (6.4-8.2) g/dL 7.5 Albumin (3.4-5.0) g/dL 3.6
--- NOTE | 2020-01-28 13:15 | RT.EKG_ITS ---
APPROVED REPORT Exam: Resting ECG Patient Location: E HR:63 bpm ECG Measurements Heart Rate 63 AXIS NC 237 P 38 QRSd 80 QRS 35 QT 445 T 57 QTc 458 Conclusion Sinus rhythm...normal P axis, V-rate 60- 99 Prolonged NC interval...NC >210, V-rate 50- 90. No STEMI. I have reviewed and interpreted ECG and agree with software generated interpretation.
[2020-01-28 13:23] LABS: D-Dimer 668 ng/mlFEU (<500)
--- NOTE | 2020-01-28 13:41 | DI.RAD_ITS ---
EXAM: XR CHEST 2V PA LATERAL CLINICAL HISTORY: shortness of breath, r/o acute disease TECHNIQUE: 2D digital imaging was performed. COMPARISON: CR RIGHT SHOULDER COMPLETE from 04/26/[address] ABDOMEN PELVIS W from 09/18/2019 FINDINGS: The heart is not enlarged. The lungs are clear and well expanded. No pleural effusion seen. Mediastin al contours appear intact. IMPRESSION: Normal chest RADIATION DOSE DELIVERED: Total DLP
--- NOTE | 2020-01-28 14:30 | DI.CT_ITS ---
EXAM: CT CHEST PE CTA CLINICAL HISTORY: shortness of breath, elev d dimer, r/o PE. TECHNIQUE: Imaging Protocol: Axial CT angiography was performed with multi-slice acquisition and mu lti-planar and/or 3D reconstructions. CONTRAST MATERIAL: Intravenous: Omnipaque 350 Contrast volume:structured data in ml COMPARISON: CT CT ABDOMEN PELVIS W from 09/18/2019 FINDINGS: CT angiography of the chest was performed with intravenous infusion of 65 cc of Omnipaque 350. The lungs are clear with central lobular pulmonary emphysematous changes noted, particularly in the l robbin apices. No pleural effusion. Tracheobronchial tree appears intact. No evidence of pulmonary embolic disease. Thoracic aorta is of normal diameter, no thoracic aortic an eurysm or dissection, major branch vessels appear intact. No mediastinal or hilar adenopathy. Images obtained through the upper abdomen show unremarkable appearance of the visualized portions of the liver, spleen, pancreas, adrenals, and kidneys. IMPRESSION: Negative CT angiogram of the chest. No evidence of pulmonary embolic disease. RADIATION DOSE DELIVERED: 272.55mGy.cm Total DLP 272.55mGy.cm Total DLP DATA REPOSITORY: All CT scans at this facility are submitted to the National Radiology Data Registry (NRDR) Dose Index Registry (DIR) with the [employer] ([employer]). RADIATION OPTIMIZATION: All CT scans at this facility use at least one of these dose optimization te chniques: automated exposure control; mA and/or kV adjustment per patient size (includes targeted exa ms where dose is matched to clinical indication); or iterative reconstruction.
[2020-01-28] MEDS: Normal Saline 1,000 ML 1000 ML IV (14:50)
[2020-01-28] MEDS: Ketorolac 30 MG/ML VIAL IVP (14:55)
[2020-01-28] MEDS: Omnipaque 350 MG/ML 100 ML BTL 65 ML IJ (15:35)
[2020-01-28] MEDS: Normal Saline - Diluent 50 ML VIAL IV (15:36)
[2020-01-28 16:19] LABS: Troponin I < 0.05 ng/mL (<0.06)
== END 2020-01-28 16:55 | disposition home or self-care (01) ==
PROVIDERS: Emergency Provider Physician Assistant; PCP Nurse Practitioner Family
DX: R00.2 Palpitations (principal); R06.00 Dyspnea, unspecified; F41.0 Panic disorder [episodic paroxysmal anxiety]
CPT/HCPCS: 36415; 71275; 80053; 93005; 96361; 96374; 99285; 71046; 83735; 84484; 85025; 85379; 85610; 85730; 93010; J1885; J3490

== ENCOUNTER 2020-03-04 20:41 | Observation (INO) | payer MEDICAID, SELFPAY ==
[2020-03-04] VITALS (25 sets, daily range): BP systolic 100–123; BP diastolic 48–69; PULSE 71–89; RESP 8–23; TEMP 36.2–36.3; O2SAT 89–99
--- NOTE | 2020-03-04 20:38 | ED.GENADUL_ITS ---
Discharge Plan Disposition Patient Disposition: [facility] INPATIENT Condition: Fair Discharge Details Clinical Impression: Acute renal failure due to rhabdomyolysis, Acute back pain, Intoxication due to misuse of recreational drug Primary Care Provider: Laura Blackwell ED Provider: Gemma Mendoza Home Meds and New Rx's Prescriptions: Continued methadone 10 mg/5 mL solution 105 mg PO DAILY RF: 0 lidocaine 3 % cream 1 applic TP QID RF: 0 albuterol sulfate [ProAir HFA] 90 mcg/actuation HFA aerosol inhaler 2 puff IH Q6H PRNRF: 0 pregabalin [Lyrica] 20 MG/1 ML solution 100 mg PO BID RF: 0 clonazepam 0.5 mg tablet 0.5 mg PO BID PRNRF: 0 hydrocodone-acetaminophen 7.5-325 mg Tablet 1 tab PO Q4H PRN PRNQty: 20 RF: 0 bacitracin zinc-polymyxin B 500-10,000 unit/gram ointment 1 applic TP Q12H Qty: 28 RF: 0 trazodone 100 MG tablet 200 mg PO HS RF: 0 Medical Decision Making Patient presents with complaints of low back pain. Review of systems is difficult to obtain due to her altered mental status suspected to be due to drug use. Will obtain IV give liter of IV fluid hold off on Narcan at this point as she is hemodynamically stable and maintaining an airway. Routine labs sent including VBG CBC CMP ammonia urine analysis urine drug. Urinalysis is positive for moderate blood. In the setting of acute back pain with CVA tenderness and elevated creatinine will add CT scan of the abdomen and pelvis to rule out nephrolithiasis, CT scan unremarkable added head CT which ruled out acute intracranial process to explain her altered mental status. Her case was discussed with Dr. Wilson who recommended adding CPK in setting of recent cocaine use. CPK is elevated at almost 8000 so she has been bolused with a second liter of normal saline. We have not ruled out an epidural abscess which is differential in the setting of IV drug abuse but she is afebrile normal white count and with no evidence of urinary retention, rectal exam is borderline as she is not following command to bear down due to her altered mental status. MRI is not currently available and I do think it is reasonable for us to wait until we can complete a reliable physical exam before determining if MRI is needed. Review of patient's chart does show that she does have a history of chronic back pain so it is unclear if this is acute and worsened or if this is just her chronic pain. will add inflammatory markers and blood culture and have low threshold to start vancomycin should she develop fever or begin to look septic. Her case was discussed with Dr. Monreal who does accept her as an observation admission on the medical surgical unit she will continue to receive aggressive IV hydration avoid nephrotoxic drugs follow her labs and kidney function closely we will place an indwelling Dumont catheter and monitor output closely. We will use IV Tylenol for pain management. Report and care of patient is transferred to Dr. Monreal. Admission heralding orders have been placed. Medical Records Medical records reviewed: Yes I reviewed the patient's medical records. Lab Data Lab results reviewed: Yes I reviewed the patient's lab results. HPI General Limitations to Documentation: no limitations . Information obtained by: patient . HPI Narrative: Patient brought in by EMS after police were called to the residence following from the domestic dispute. She was found to be altered so EMS was called and she was transported to the emergency department for evaluation. On arrival to the emergency department she is oriented to person and place but is unable to provide any meaningful history. She does become somnolent intermittently but is easily arousable. Her heart rate and blood pressure are stable. Her respiratory rate does become shallow at times but when she is aroused it normalizes. She is also desatting during these periods so oxygen is applied Related Data Home Medications Medication Instructions Recorded Confirmed trazodone 200 mg PO HS 09/11/16 03/04/20 pregabalin [Lyrica] 100 mg PO BID ml 04/05/17 03/04/20 methadone 10 mg/5 mL oral solution 105 mg PO DAILY ml 01/07/18 03/04/20 albuterol sulfate 90 mcg/actuation 2 puff IH Q6H PRN 11/21/19 03/04/20 aerosol inhaler lidocaine 3 % topical cream 1 applic TP QID 11/21/19 03/04/20 clonazepam 0.5 mg PO BID PRN 12/29/19 03/04/20 bacitracin zinc-polymyxin B 1 applic TP Q12H #28 gm 12/30/19 03/04/20 hydrocodone-acetaminophen 1 tab PO Q4H PRN PRN #20 tab 12/30/19 03/04/20 Previous Rx's Medication Instructions Recorded bacitracin zinc-polymyxin B 1 applic TP Q12H #28 gm 12/30/19 hydrocodone-acetaminophen 1 tab PO Q4H PRN PRN #20 tab 12/30/19 Allergies Allergy/AdvReac Type Severity Reaction Status Date / Time cephalexin monohydrate Allergy Intermediate Skin Rash Verified 03/04/20 21:10 [From Keflex] zaleplon [From Sonata] Allergy Unknown Verified 03/04/20 21:10 oxycodone HCl AdvReac Intermediate Nausea Verified 03/04/20 21:10 [From OxyContin] buspirone AdvReac Unknown Disconnected Verified 03/04/20 21:10 feeling sertraline HCl [From Zoloft] AdvReac Unknown Disconnect Verified 03/04/20 21:10 feeling, I dont feel like myself General LIO: 2 Review of Systems Unobtainable due to mental status [facility] Medical History (Updated 03/05/20 @ 00:00 by Gemma Mendoza NP) Abnormal LFTs Abnormal mammogram Adenomatous colon polyp Anemia Anxiety Benzodiazepine overdose Per pt. is unaware of this Borderline personality disorder Pt. states she is not aware of this dx Breast mass in female Chronic neck pain Chronic pain Combinations of opioid type drug with any other drug dependence, in remission Constipation The problem was part of today's visit Depression Endometriosis Female rectocele without uterine prolapse First degree AV block Hepatitis C Pt. states she was unaware of this Hx of colonic polyps Hx of drug dependence On methadone Laceration of wrist Low back pain Memory impairment Nausea & vomiting Noncompliance a. multiple missed outpatient appts with PCP's office per their records Normal colonoscopy (01/16/17) Dr Noriega recommended next in 10 yrs Opioid dependence Panic disorder Sacroiliac joint dysfunction of right side Tobacco abuse Tobacco abuse Surgical History Abdominal hysterectomy Arthroscopy, Shoulder Colonoscopy - MAC (01/16/17) H/O cervical spine surgery (~10/16/18) fusion 1988 H/O spinal fusion Hx laparoscopic cholecystectomy Lorne Fundoplication S/P wrist surgery Social History Smoking/Tobacco Use Status: Current every day Tobacco Type: e-cigarettes Smoking risk assessment performed?: Yes Alcohol Intake: never Drug use: Current Sobriety Substance use type: opiates Details: unable to assess in private Number of Children: 2 What type of physical activity do you participate in: none Do you feel safe at home: Yes Do you feel safe in your relationship?: Yes Exam Const General: cooperative, no acute distress, disheveled, frail appearing, ill appearing chronically and intoxicated appearing Nutritional Appearance: average body habitus Orientation: alert, awake, oriented to person, oriented to place and confused (Somnolent intermittently) Limitations: altered mental status HENMI Head: normal to inspection, normocephalic and atraumatic Eyes Sclera: scleral abnormality bilaterally scleral injection Cornea: corneas normal Resp Effort & Inspection: normal respiratory effort and not labored Cardio Rate: regular rate Rhythm: regular rhythm GI Inspection: normal to inspection Palpation: soft Auscultation: normal bowel sounds Rectal Exam - female: visual inspection normal, abnormal sphincter tone Rectal exam abnormal sphincter tone - female: decreased and heme negative stool Back/Spine/Pelvis Back: CVA tenderness (left greater than right), No erythema and No ecchymosis Thoracic/Lumbar Spine: thoracic and lumbar spine normal to inspection Neuro General: not alert, patient confused (Unable to provide a good history) and patient obtunded (Somnolent) Speech: other (Slurred) Extrem General: edema (hands, with track jacobsen) Laterality: bilateral Other: Able to perform straight leg raise bilaterally, pain on left
--- NOTE | 2020-03-04 20:45 | RT.EKG_ITS ---
APPROVED REPORT Exam: Resting ECG Patient Location: E HR:79 bpm ECG Measurements Heart Rate 79 AXIS MT 249 P 62 QRSd 83 QRS 53 QT 450 T 60 QTc 516 Conclusion Sinus rhythm...normal P axis, V-rate 60- 99 Prolonged MT interval...MT >210, V-rate 50- 90 Posterior infarct, old...prom R T, V1-V3 or Q >40mS, V7-V9 Prolonged QT interval...QTc >510mS I have reviewed and interpreted ECG and agree with software generated interpretation.
[2020-03-04] MEDS: Normal Saline 1,000 ML 1000 ML IV (21:09)
[2020-03-04 21:15] LABS: BE (Venous) 0 mmol/L (-2-3); HCO3 (Venous) 26 mmol/L (23-28); O2 Sat (Venous) 87 %; TCO2 (Venous) 25 mmol/L (24-29); pCO2 (Venous) 51 mmHg (41-51); pH (Venous) 7.32 (7.31-7.41); pO2 (Venous) 56 mmHg
[2020-03-04 21:18] LABS: Abs Immature Grans 0.01 10^3/uL (0.0-0.06); Absolute Basophil Count 0.01 10^3/uL (0.0-0.2); Absolute Eosinophil Count 0.01 10^3/uL (0.0-0.7); Absolute Lymphocyte Count 1.58 10^3/uL (1.2-3.4); Absolute Monocyte Count 0.38 10^3/uL (0.1-0.8); Absolute Neutrophil Count 2.93 10^3/uL (1.2-6.7); Basophils % 0.2; Eosinophils % 0.2; HCT 30.1 % (36.0-46.0); Immature Grans % 0.2; Lymphocytes % 32.1; MCH 29.7 pg (27.0-33.0); MCHC 33.2 % (32.0-36.0); MCV 89.3 fL (80-95); MPV 9.2 fL (8.0-11.0); Monocytes % 7.7; Neutrophils % 59.6; Nucleated RBC 0 %; Platelet Count 193 10^3/uL (130-400); RBC 3.37 10^6/uL (3.93-5.22); RDW 13.3 % (11.7-14.6); RDW-SD 43.8 fL; WBC 4.92 10^3/uL (4.4-10.8)
[2020-03-04 21:31] LABS: Ammonia 23 umol/L (11-32)
[2020-03-04 21:36] LABS: ALT 53 U/L (14-59); AST 131 U/L (15-37); Alkaline Phosphatase 97 U/L (46-116); BUN 14 mg/dL (7-18); Bilirubin, Total 0.3 mg/dL (0.2-1.0); CREATININE 1.43 mg/dL (0.55-1.02); Chloride 101 mmol/L (98-107); ETHANOL BLOOD 3.4 mg/dL (<3); Estimated GFR 38.53 (mL/min/1.73m2); Glucose 89 mg/dL (74-106); Magnesium 2.2 mg/dL (1.8-2.4); Potassium 3.4 mmol/L (3.5-5.1); Sodium 139 mmol/L (136-145); Total Protein 7.7 g/dL (6.4-8.2)
[2020-03-04 21:59] LABS: Bilirubin Negative (Negative); Blood Moderate (Negative); Clarity Clear (Clear); Glucose Negative (Negative); Ketones Negative (Negative); Leukocyte Esterase Negative (Negative); Nitrite Negative (Negative); Urobilinogen 0.2 EU/dL (Up TO 0.2); pH 5.5 (5-8)
[2020-03-04 22:14] LABS: *AMPHETAMINES SCREEN URINE Negative (Negative); *BARBITURATES SCREEN URINE Negative (Negative); *BENZODIAZEPINES SCREEN URINE POSITIVE (Negative); Cannabinoids THC Negative (Negative); Cocaine Screen,Urine POSITIVE (Negative); METHADONE URINE SCREEN POSITIVE (Negative); OPIATES URINE SCREEN Negative (Negative)
[2020-03-04 22:19] LABS: Bacteria Negative HPF (Negative); Crystals Negative HPF (Negative); Epithelial Cells Negative HPF (Negative); Mucus Moderate (Negative); RBC Negative HPF (0-2); WBC 0-2 HPF (0-5)
[2020-03-04 22:20] LABS: C & S Indicated? No; Casts 5-10 Hyaline LPF (Negative)
[2020-03-04 22:28] LABS: Tricyclic Antidepressants Negative (Negative)
[2020-03-04 22:50] LABS: Sodium, Urine 29 mmol/L
--- NOTE | 2020-03-04 23:00 | DI.CT_ITS ---
EXAM: CT ABDOMEN PELVIS WO CLINICAL HISTORY: left lower back pain, ? renal stone. TECHNIQUE: Imaging Protocol: Axial computed tomography images with coronal and sagittal reformatted images were created and reviewed. COMPARISON: CT CT ABDOMEN PELVIS W from 09/18/[address] CHEST PE CTA from 01/28/2020 FINDINGS: ABDOMEN: Lung Bases: Bilateral basilar infiltrates. Large hiatal hernia. Liver: Normal density. No measurable mass. Gallbladder and biliary tract: Status post cholecystectomy. No biliary ductal dilatation. Pancreas: Diffuse fatty atrophy of the pancreas. Otherwise unremarkable. Spleen: Normal. Kidneys: Normal size, contour and axis.No radiodense stones or obstructive uropathy. No masses seen. Adrenal glands: No mass is seen. Lymph nodes: Within normal limits. Abdominal Aorta: Abdominal portion non-dilated. Atherosclerosis. PELVIS: Bladder:Symmetric distention, no gross wall thickening. Bowel: No obstruction or bowel wall thickening. Appendix is unremarkable. Large amount of retained s tool in the colon. Peritoneal cavity: No ascites, collection or mesenteric inflammatory response Reproductive organs: Within normal limits. Bones: No acute osseous abnormality. Prior fixation of the right sacroiliac joint. Soft Tissues: Within normal limits. IMPRESSION: 1. No evidence of nephrolithiasis or hydronephrosis. 2. No acute abdominal or pelvic process. 3. Bilateral basilar infiltrates. RADIATION DOSE DELIVERED: 863.99mGy.cm Total DLP DATA REPOSITORY: All CT scans at this facility are submitted to the National Radiology Data Registry (NRDR) Dose Index Registry (DIR) with the [employer] ([employer]). RADIATION OPTIMIZATION: All CT scans at this facility use at least one of these dose optimization te chniques: automated exposure control; mA and/or kV adjustment per patient size (includes targeted exa ms where dose is matched to clinical indication); or iterative reconstruction.
--- NOTE | 2020-03-04 23:00 | DI.CT_ITS ---
EXAM: CT HEAD WO CLINICAL HISTORY: AMS. TECHNIQUE: Imaging Protocol: Axial computed tomography images with coronal and sagittal reformatted images were created and reviewed COMPARISON: CT HEAD WO/W FACIALS W from 11/16/2017 FINDINGS: Ventricles and Extra axial spaces: Normal in size and morphology for the patient's age. Hemorrhage: None. Cerebral parenchyma: Normal. Midline shift: None. Brainstem/Cerebellum: Normal. Calvarium: Normal. Visualized Paranasal sinuses/Mastoids: Clear. Soft Tissues: Unremarkable. IMPRESSION: No acute intracranial process. RADIATION DOSE DELIVERED: 720.99mGy.cm Total DLP DATA REPOSITORY: All CT scans at this facility are submitted to the National Radiology Data Registry (NRDR) Dose Index Registry (DIR) with the [employer] ([employer]). RADIATION OPTIMIZATION: All CT scans at this facility use at least one of these dose optimization te chniques: automated exposure control; mA and/or kV adjustment per patient size (includes targeted exa ms where dose is matched to clinical indication); or iterative reconstruction.
--- NOTE | 2020-03-04 23:03 | DI.VRAD_ITS ---
PROCEDURE INFORMATION: Exam: CT Head Without Contrast Exam date and time: 03/04/2020 10:19 PM Age: 50 years old Clinical indication: Altered mental status/memory loss; Confusion or disorientation TECHNIQUE: Imaging protocol: Computed tomography of the head without contrast. Radiation optimization: All CT scans at this facility use at least one of these dose optimization techniques: automated exposure control; mA and/or kV adjustment per patient size (includes targeted exams where dose is matched to clinical indication); or iterative reconstruction. COMPARISON: CT HEAD WO/W FACIALS W 11/16/2017 11:36 AM FINDINGS: Brain: No intracranial hemorrhage or extra-axial fluid collection. No evidence of mass effect or midline shift. Torres-white matter differentiation is intact. Cerebral ventricles: No ventriculomegaly. Bones/joints: No acute osseus lesion or fracture. Paranasal sinuses: Visualized sinuses are unremarkable. No fluid levels. Mastoid air cells: Unremarkable. Soft tissues: Unremarkable. IMPRESSION: No acute intracranial pathology. Dictated and Authenticated by: Joe Kim MD. Ordering:LUNA Menendez MD
[2020-03-04] MEDS: Normal Saline 1,000 ML 100 ML IV (23:10)
--- NOTE | 2020-03-04 23:17 | DI.VRAD_ITS ---
PROCEDURE INFORMATION: Exam: CT Abdomen And Pelvis Without Contrast Exam date and time: 03/04/2020 10:55 PM Age: 50 years old Clinical indication: Abdominal pain; Flank; Patient HX: Left lower back pain, ? stone. TECHNIQUE: Imaging protocol: Computed tomography of the abdomen and pelvis without contrast. Radiation optimization: All CT scans at this facility use at least one of these dose optimization techniques: automated exposure control; mA and/or kV adjustment per patient size (includes targeted exams where dose is matched to clinical indication); or iterative reconstruction. COMPARISON: CT ABDOMEN PELVIS W 09/18/2019 8:08 PM FINDINGS: Lungs: Patchy airspace opacities noted at the lung bases. Mediastinal space: A large hiatal hernia is present. Liver: Normal. No mass. Gallbladder and bile ducts: Patient status post cholecystectomy. No biliary ductal dilation. Pancreas: There is diffuse, benign fatty infiltration of the pancreas. There is diffuse atrophy of the pancreatic parenchyma. Spleen: Normal. No splenomegaly. Adrenal glands: Normal. No mass. Kidneys and ureters: Normal. No hydronephrosis. Stomach and bowel: There is no evidence of intestinal perforation or obstruction. There is excessive colonic stool content. Appendix: No evidence of appendicitis. Intraperitoneal space: Unremarkable. No free air. No significant fluid collection. Vasculature: The vasculature demonstrates diffuse mild atherosclerotic calcification. Lymph nodes: Unremarkable. No enlarged lymph nodes. Urinary bladder: Unremarkable as visualized. Reproductive: There has been a hysterectomy. Bones/joints: Prior fixation of the right iliac bone and sacrum without acute complications. No acute skeletal pathology. Mild multilevel degenerative changes of the spine, as manifested by multilevel anterior osteophytes and multilevel decrease in intervertebral disc space. Soft tissues: Unremarkable. IMPRESSION: 1. Negative for acute abdominopelvic pathology. 2. Lung base findings may be related to atelectasis or acute airspace disease in the appropriate clinical setting. 3. Incidental findings as detailed above. Dictated and Authenticated by: Christopher Hairston MD. Ordering:LUNA Menendez MD
[2020-03-04 23:35] LABS: Creatine Kinase 7865 U/L (26-192)
[2020-03-04 23:42] LABS: C-Reactive Protein 0.97 mg/dL (0.0-0.3)
[2020-03-04 23:58] LABS: ESR 35 mm/hr (0-30)
[2020-03-05] VITALS (12 sets, daily range): BP systolic 120–154; BP diastolic 66–100; PULSE 70–85; RESP 8–20; TEMP 36.2–37.3; O2SAT 94–97
--- NOTE | 2020-03-05 | DI.MRI_ITS ---
EXAM: MR LUMBAR SPINE WO/W CLINICAL HISTORY: low back pain. TECHNIQUE: Multiplanar multisequence MRI of the Lumbar Spine was performed. The lower thoracic spin e was included on the noncontrast sagittal T1 and T2 weighted images. CONTRAST MATERIAL: IV Contrast: 13 mL of Dotarem contrast administered. COMPARISON: CT CT ABDOMEN PELVIS WO from 03/04/2020 FINDINGS: Bones: The last intervertebral disc space is designated the L5/S1 level for the numbering purpose of this examination. The vertebral body heights are well maintained. Alignment is satisfactory. Degener ative endplate signal changes are seen at L4-L5. Cord: The conus tip ends at the T12 level. It is of normal size and signal intensity. T12-L1: No disc herniations or bulges are present. No central spinal canal or neural foraminal stenos is. L1-2: No disc herniations or bulges are present. No central spinal canal or neural foraminal stenosis . L2-3: No disc herniations or bulges are present. No central spinal canal or neural foraminal stenosis . L3-4: No disc herniations or bulges are present. No central spinal canal or neural foraminal stenosis . L4-5: Mild diffuse disc bulge. Hypertrophic changes of the facets are present. No central spinal ca nal stenosis.Mild bilateral neural foraminal stenosis. L5-S1: No disc herniations or bulges are present. No central spinal canal or neural foraminal stenosi s. Soft tissues: The visualized SI joints and sacrum are well maintained. The paraspinal soft tissues ar e unremarkable. There is prior fixation of the right sacroiliac joint. There is no evidence of suspicious enhancement. No abnormal fluid collection or enhancing fluid colle ction to suggest an abscess. IMPRESSION: 1. No evidence to suggest osteomyelitis/discitis or abscess. 2. Degenerative changes at the L4-5 disc space causing mild bilateral neural foraminal stenosis. 3. Please see the MRI report on the thoracic spine for further details. DATA REPOSITORY:
--- NOTE | 2020-03-05 | DI.MRI_ITS ---
EXAM: MR BRAIN WO CLINICAL HISTORY: diplopia TECHNIQUE: Multiplanar multisequence MRI of the brain was performed. COMPARISON: CT CT HEAD WO from 03/04/2020 FINDINGS: The examination is limited due to patient motion artifact. VENTRICLES AND EXTRA AXIAL SPACES: Normal in size and morphology for the patient's age. MIDLINE SHIFT: None. CEREBRAL PARENCHYMA: No focus of restricted diffusion to suggest acute infarct. No space-occupying le robel identified. HEMORRHAGE: None. BRAINSTEM/CEREBELLUM: Normal. CALVARIUM: Normal. VISUALIZED PARANASAL SINUSES/MASTOIDS:Clear. [place]: Normal flow void. PITUITARY GLAND: Unremarkable. OTHER FINDINGS: None. IMPRESSION: Unremarkable MRI of the brain. DATA REPOSITORY:
--- NOTE | 2020-03-05 | DI.MRI_ITS ---
EXAM: MR THORACIC SPINE WO CLINICAL HISTORY: back pain. TECHNIQUE: T1, T2 and STIR sagittal images of the cervical and thoracic spine were obtained. Sagitt al images of the lower thoracic spine are included on the MRI of the lumbar spine performed the same day. COMPARISON: No exams were available for comparison FINDINGS: Bones: The vertebral body heights are well maintained. Alignment is satisfactory. The signal characte ristics are unremarkable. Spinal cord: The cervical and thoracic spinal cord is normal size and signal intensity. No intrinsic cord lesion is present. Discs: No disc herniation or bulge is present. Soft tissues: Normal. No perispinal or epidural fluid collection is seen to suggest an abscess. IMPRESSION: Normal MRI examination of the cervical and thoracic spine. No MRI findings to suggest osteomyelitis/d iscitis. DATA REPOSITORY:
[2020-03-05] MEDS: Normal Saline 1,000 ML 1000 ML IV ×3 (00:59→06:38)
[2020-03-05 06:55] LABS: Absolute Basophil Count 0.01 10^3/uL (0.0-0.2); Absolute Eosinophil Count 0.03 10^3/uL (0.0-0.7); Absolute Lymphocyte Count 1.46 10^3/uL (1.2-3.4); Absolute Monocyte Count 0.37 10^3/uL (0.1-0.8); Absolute Neutrophil Count 1.65 10^3/uL (1.2-6.7); Basophils % 0.3; Eosinophils % 0.9; HCT 26.1 % (36.0-46.0); HGB 8.6 g/dL (11.2-15.7); Lymphocytes % 41.5; MCH 29.9 pg (27.0-33.0); MCV 90.6 fL (80-95); MPV 9.3 fL (8.0-11.0); Monocytes % 10.5; Neutrophils % 46.8; Nucleated RBC 0 %; Platelet Count 146 10^3/uL (130-400); RBC 2.88 10^6/uL (3.93-5.22); RDW 13.8 % (11.7-14.6); RDW-SD 45.8 fL; WBC 3.52 10^3/uL (4.4-10.8)
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
[2020-03-05 07:18] LABS: ALT 49 U/L (14-59); AST 138 U/L (15-37); Albumin 2.7 g/dL (3.4-5.0); Alkaline Phosphatase 76 U/L (46-116); BUN 8 mg/dL (7-18); Bilirubin, Total 0.1 mg/dL (0.2-1.0); CREATININE 0.97 mg/dL (0.55-1.02); Calcium 7.4 mg/dL (8.5-10.1); Chloride 111 mmol/L (98-107); Glucose 94 mg/dL (74-106); Potassium 3.4 mmol/L (3.5-5.1); Sodium 143 mmol/L (136-145); Total Protein 5.6 g/dL (6.4-8.2)
[2020-03-05 07:24] LABS: Creatine Kinase 6596 U/L (26-192)
[2020-03-05 07:29] LABS: Diff Comment RBC Morph Reviewed; RBC Morphology Normal
[2020-03-05] MEDS: Heparin 5,000 UNITS/ML VIAL 5000 UNITS SC ×2 (08:03→14:15)
[2020-03-05] MEDS: Potassium Chloride 10 MEQ CAPCR 40 MEQ PO (08:06)
[2020-03-05] MEDS: Pregabalin 100 MG CAP PO (08:06)
[2020-03-05] MEDS: Nicotine 21 MG/24 HR PATCH TD (08:06)
[2020-03-05] MEDS: diazePAM 10 MG/2 ML SYR 5 MG IVP (08:20)
[2020-03-05] MEDS: Gadoterate meglumine 20 ML VIAL 13 ML IVP (09:46)
[2020-03-05] MEDS: Normal Saline Flush 10 ML SYR IVP ×2 (09:46→14:35)
--- NOTE | 2020-03-05 10:23 | INITIAL_ITS ---
- If Service Date Differs Date of service: 03/05/20 Time of Service: 10:23 Care Management Initial Assess REASON FOR HOSPITALIZATION:: Back Pain, substance use history of dependency. PAST MEDICAL HISTORY/PAST SURGICAL HISTORY:: Abnormal LFTs. Abnormal mammogram. Adenomatous colon polyp. Anemia. Anxiety. Benzodiazepine overdose. Per pt. is unaware of this. Borderline personality disorder. Pt. states she is not aware of this dx. Breast mass in female. Chronic neck pain. Chronic pain. Combinations of opioid type drug with any other drug dependence, in remission. Constipation. The problem was part of today's visit. Depression. Endometrios is. Female rectocele without uterine prolapse. First degree AV block. Hepatitis C. Pt. states she was unaware of this. Hx of colonic polyps. Hx of drug dependence. On methadone. Laceration of wrist. Low back pain. Memory impairment. Nausea & vomiting. Noncompliance. a. multiple missed outpatient appts with PCP's office per their records. Normal colonoscopy (01/16/17). Dr Noriega recommended next in 10 yrs. Opioid dependence. Panic disorder. Sacroiliac joint dysfunction of right side. Tobacco abuse. Tobacco abuse. Surgical History . Abdominal hysterectomy. Arthroscopy, Shoulder. Colonoscopy - [facility] (01/16/17). H/O cervical spine surgery (~10/16/18). fusion 1988. H/O spinal fusion. Hx laparoscopic cholecystectomy. Lorne Fundoplication. S/P wrist surgery PREVIOUS FUNCTIONAL STATUS/SOCIAL/FAMILY SUPPORTS:: Jodee lives with her spouse here in [place] CURRENT FUNCTIONAL STATUS:: Patient is not engaged when CM attempts to meet with her. ADVANCE DIRECTIVES:: None on file - CM to offer forms Has patient been provided with info about the portal/API?: Yes CODE STATUS:: Full Code INSURANCE COVERAGE / FINANCIAL ISSUES:: Medicaid PLAN:: Pateint left AMA no addtional services provided at time of discharge.
--- NOTE | 2020-03-05 10:26 | PGE_ITS ---
Date of Service Date of service: 03/05/20 Time of Service: 10:15 Assessment and Plan Assessment and plan (1) Rhabdomyolysis: Start date: 03/05/20 Start time: 11:09 Status: Acute Assessment and plan: Creatine kinase of 6600 in ED on 03/05. Creatine kinase pending for 1400.. creatinine improved by am labs overnight. Continue fluids monitor labs in am Qualifiers: Rhabdomyolysis type: non-traumatic Qualified Code(s): M62.82 - Rhabdomyolysis (2) Acute renal failure due to rhabdomyolysis: Start date: 03/05/20 Start time: 11:11 Status: Acute Assessment and plan: from above as above (3) Acute back pain: Start date: 03/05/20 Start time: 11:12 Status: Acute Assessment and plan: history of spinal stenosis, will r/o any further trauma or injury MRI-pending. Qualifiers: Back pain location: low back pain Back pain laterality: bilateral Sciatica presence: with sciatica Sciatica laterality: sciatica of left side Qualified Code(s): M54.42 - Lumbago with sciatica, left side (4) Intoxication due to misuse of recreational drug: Start date: 03/05/20 Start time: 11:12 Status: Acute Assessment and plan: Admits to cocaine intoxication, denies other recreational drugs. She does take methadone 105 mg daily. (5) DVT prophylaxis: Start date: 03/05/20 Start time: 11:13 Status: Acute Assessment and plan: Heparin sub cu (6) Discharge planning issues: Start date: 03/05/20 Start time: 11:14 Status: Acute Assessment and plan: Will return home following discharge, continues to require hosptilzation. Subjective Subjective Patient reports: feels better and still having pain Interval history since last seen: Returned from MRI. C/o of bladder pain and demanding reich be removed. Also endorses she wants to go home, explained that it would be beneficial to monitor labs and stay another night. She was agreeable. Denies CP, SOB, n/v/d. Exam Narrative Exam Narrative: General: This is an alert but groggy 50 year old woman appearing older than stated age. She is able to follow commands and reasons well. HEENT: Head appears normocephalic, atruaumatic. Eyes are slightly jaundiced, with pallor of the skin of the face. Cardio: RRR, S1/S2 auscultated, no murmurs, rubs or bruits appreciated Resp: Slight inspiratory crackling in the bases of her lungs, heard best posteriorly. Patient is in no acute distress and is able to breath without tripoding or accessory muscle mobilization Extremities: Hand are edematous and erythematous; patient is unable to close fists. B/l LEs are slightly edematous, though no pitting and no erythema. Patient has multiple bruises and lesions (possible track jacobsen) [facility] Head: normocephalic and atraumatic Ears: hearing grossly normal bilaterally Face and sinus: face symmetric Mouth: oral mucosae normal Eyes Conjunctivae: conjunctival abnormality (pallor) Sclera: scleral abnormality (jaundiced) Resp Effort & Inspection: normal respiratory effort and able to speak in complete sentences Auscultation: crackles Cardio Rate: regular rate Rhythm: regular rhythm Heart Sounds: S1 normal and S2 normal GI Inspection: distended Extrem Right upper extremity: edema and hand Details: swelling Left upper extremity: edema and hand Details: swelling Right lower extremity: ankle Details: edema Left lower extremity: ankle Details: pitting edema Psych Appearance: disheveled Mental Status: mental status grossly normal Objective Last Vital Signs Temp 36.8 C 03/05/20 07:37 Pulse 84 03/05/20 07:37 Resp 20 03/05/20 07:37 BP 120/79 03/05/20 07:37 Pulse Ox 97 03/05/20 07:37 Laboratory Results - last 24 hr 03/04/20 03/04/20 03/04/20 20:55 21:00 21:00 WBC RBC Hgb Hct MCV MCH MCHC RDW Plt Count MPV Immature Gran % Neutrophils % Lymphocytes % Monocytes % Eosinophils % Basophils % Nucleated RBC % Absolute Neutrophils Absolute Lymphocytes Absolute Monocytes Absolute Eosinophils Absolute Basophils RBC Morphology ESR ABG Sample Site Cancelled ABG pH Cancelled ABG pCO2 Cancelled ABG pO2 Cancelled ABG HCO3 Cancelled ABG Total CO2 Cancelled ABG O2 Saturation Cancelled ABG Base Excess Cancelled VBG pH VBG pCO2 VBG pO2 VBG HCO3 VBG Total CO2 VBG O2 Saturation VBG Base Excess Oxygen Liter Flow Cancelled FiO2 Cancelled Sodium 139 Potassium 3.4 L Chloride 101 Carbon Dioxide 26.0 Anion Gap 12.0 H BUN 14 Creatinine 1.43 H Estimated GFR/1.73 m2 38.53 Glucose 89 Calcium 9.0 Magnesium 2.2 Total Bilirubin 0.3 AST 131 H ALT 53 Alkaline Phosphatase 97 Ammonia 23 Creatine Kinase C-Reactive Protein Total Protein 7.7 Albumin 4.0 Urine Color Urine Clarity Urine pH Ur Specific [place] Urine Protein Urine Ketones Urine Blood Urine Nitrite Urine Bilirubin Urine Urobilinogen Ur Leukocyte Esterase Urine RBC Urine WBC Ur Epithelial Cells Urine Crystals Urine Bacteria Urine Casts Urine Mucus Ur Culture Indicated? Ur Random Creatinine Ur Random Sodium Urine Glucose Urine Opiates Screen Urine Methadone Screen Ur Barbiturates Screen Ur Tricyclics Screen Ur Amphetamines Screen U Benzodiazepines Scrn Urine Cocaine Screen Ur THC Screen Ethyl Alcohol 3.4 03/04/20 03/04/20 03/04/20 21:00 21:00 21:00 WBC 4.92 RBC 3.37 L Hgb 10.0 L Hct 30.1 L MCV 89.3 MCH 29.7 MCHC 33.2 RDW 13.3 Plt Count 193 MPV 9.2 Immature Gran % 0.2 Neutrophils % 59.6 Lymphocytes % 32.1 Monocytes % 7.7 Eosinophils % 0.2 Basophils % 0.2 Nucleated RBC % 0 Absolute Neutrophils 2.93 Absolute Lymphocytes 1.58 Absolute Monocytes 0.38 Absolute Eosinophils 0.01 Absolute Basophils 0.01 RBC Morphology ESR ABG Sample Site ABG pH ABG pCO2 ABG pO2 ABG HCO3 ABG Total CO2 ABG O2 Saturation ABG Base Excess VBG pH 7.32 VBG pCO2 51 VBG pO2 56 VBG HCO3 26 VBG Total CO2 25 VBG O2 Saturation 87 VBG Base Excess 0 Oxygen Liter Flow FiO2 Sodium Potassium Chloride Carbon Dioxide Anion Gap BUN Creatinine Estimated GFR/1.73 m2 Glucose Calcium Magnesium Total Bilirubin AST ALT Alkaline Phosphatase Ammonia Creatine Kinase 7865 H C-Reactive Protein Total Protein Albumin Urine Color Urine Clarity Urine pH Ur Specific [place] Urine Protein Urine Ketones Urine Blood Urine Nitrite Urine Bilirubin Urine Urobilinogen Ur Leukocyte Esterase Urine RBC Urine WBC Ur Epithelial Cells Urine Crystals Urine Bacteria Urine Casts Urine Mucus Ur Culture Indicated? Ur Random Creatinine Ur Random Sodium Urine Glucose Urine Opiates Screen Urine Methadone Screen Ur Barbiturates Screen Ur Tricyclics Screen Ur Amphetamines Screen U Benzodiazepines Scrn Urine Cocaine Screen Ur THC Screen Ethyl Alcohol 03/04/20 03/04/20 03/04/20 21:00 21:30 21:30 WBC RBC Hgb Hct MCV MCH MCHC RDW Plt Count MPV Immature Gran % Neutrophils % Lymphocytes % Monocytes % Eosinophils % Basophils % Nucleated RBC % Absolute Neutrophils Absolute Lymphocytes Absolute Monocytes Absolute Eosinophils Absolute Basophils RBC Morphology ESR 35 H ABG Sample Site ABG pH ABG pCO2 ABG pO2 ABG HCO3 ABG Total CO2 ABG O2 Saturation ABG Base Excess VBG pH VBG pCO2 VBG pO2 VBG HCO3 VBG Total CO2 VBG O2 Saturation VBG Base Excess Oxygen Liter Flow FiO2 Sodium Potassium Chloride Carbon Dioxide Anion Gap BUN Creatinine Estimated GFR/1.73 m2 Glucose Calcium Magnesium Total Bilirubin AST ALT Alkaline Phosphatase Ammonia Creatine Kinase C-Reactive Protein 0.97 H Total Protein Albumin Urine Color Urine Clarity Urine pH Ur Specific [place] Urine Protein Urine Ketones Urine Blood Urine Nitrite Urine Bilirubin Urine Urobilinogen Ur Leukocyte Esterase Urine RBC Urine WBC Ur Epithelial Cells Urine Crystals Urine Bacteria Urine Casts Urine Mucus Ur Culture Indicated? Ur Random Creatinine 136.10 Ur Random Sodium 29 Urine Glucose Urine Opiates Screen Urine Methadone Screen Ur Barbiturates Screen Ur Tricyclics Screen Ur Amphetamines Screen U Benzodiazepines Scrn Urine Cocaine Screen Ur THC Screen Ethyl Alcohol 03/04/20 03/04/20 03/05/20 21:35 21:35 06:34 WBC RBC Hgb Hct MCV MCH MCHC RDW Plt Count MPV Immature Gran % Neutrophils % Lymphocytes % Monocytes % Eosinophils % Basophils % Nucleated RBC % Absolute Neutrophils Absolute Lymphocytes Absolute Monocytes Absolute Eosinophils Absolute Basophils RBC Morphology ESR ABG Sample Site ABG pH ABG pCO2 ABG pO2 ABG HCO3 ABG Total CO2 ABG O2 Saturation ABG Base Excess VBG pH VBG pCO2 VBG pO2 VBG HCO3 VBG Total CO2 VBG O2 Saturation VBG Base Excess Oxygen Liter Flow FiO2 Sodium 143 Potassium 3.4 L Chloride 111 H Carbon Dioxide 25.0 Anion Gap 7.0 BUN 8 D Creatinine 0.97 Estimated GFR/1.73 m2 >= 60.00 Glucose 94 Calcium 7.4 L Magnesium Total Bilirubin 0.1 L AST 138 H ALT 49 Alkaline Phosphatase 76 Ammonia Creatine Kinase 6596 H C-Reactive Protein Total Protein 5.6 L Albumin 2.7 L Urine Color Yellow Urine Clarity Clear Urine pH 5.5 Ur Specific [place] 1.020 Urine Protein Negative Urine Ketones Negative Urine Blood Moderate H Urine Nitrite Negative Urine Bilirubin Negative Urine Urobilinogen 0.2 Ur Leukocyte Esterase Negative Urine RBC Negative Urine WBC 0-2 Ur Epithelial Cells Negative Urine Crystals Negative Urine Bacteria Negative Urine Casts 5-10 hyaline Urine Mucus Moderate Ur Culture Indicated? No Ur Random Creatinine Ur Random Sodium Urine Glucose Negative Urine Opiates Screen Negative Urine Methadone Screen Positive A Ur Barbiturates Screen Negative Ur Tricyclics Screen Negative Ur Amphetamines Screen Negative U Benzodiazepines Scrn Positive A Urine Cocaine Screen Positive A Ur THC Screen Negative Ethyl Alcohol 03/05/20 06:34 WBC 3.52 L RBC 2.88 L Hgb 8.6 L Hct 26.1 L MCV 90.6 MCH 29.9 MCHC 33.0 RDW 13.8 Plt Count 146 MPV 9.3 Immature Gran % 0.0 Neutrophils % 46.8 Lymphocytes % 41.5 Monocytes % 10.5 Eosinophils % 0.9 Basophils % 0.3 Nucleated RBC % 0 Absolute Neutrophils 1.65 Absolute Lymphocytes 1.46 Absolute Monocytes 0.37 Absolute Eosinophils 0.03 Absolute Basophils 0.01 RBC Morphology Normal ESR ABG Sample Site ABG pH ABG pCO2 ABG pO2 ABG HCO3 ABG Total CO2 ABG O2 Saturation ABG Base Excess VBG pH VBG pCO2 VBG pO2 VBG HCO3 VBG Total CO2 VBG O2 Saturation VBG Base Excess Oxygen Liter Flow FiO2 Sodium Potassium Chloride Carbon Dioxide Anion Gap BUN Creatinine Estimated GFR/1.73 m2 Glucose Calcium Magnesium Total Bilirubin AST ALT Alkaline Phosphatase Ammonia Creatine Kinase C-Reactive Protein Total Protein Albumin Urine Color Urine Clarity Urine pH Ur Specific [place] Urine Protein Urine Ketones Urine Blood Urine Nitrite Urine Bilirubin Urine Urobilinogen Ur Leukocyte Esterase Urine RBC Urine WBC Ur Epithelial Cells Urine Crystals Urine Bacteria Urine Casts Urine Mucus Ur Culture Indicated? Ur Random Creatinine Ur Random Sodium Urine Glucose Urine Opiates Screen Urine Methadone Screen Ur Barbiturates Screen Ur Tricyclics Screen Ur Amphetamines Screen U Benzodiazepines Scrn Urine Cocaine Screen Ur THC Screen Ethyl Alcohol
--- NOTE | 2020-03-05 12:07 | PHA.REVIEW ---
Pharmacy Admission Review - Admission Clinical Review (Last Reviewed 03/05/20 @ 10:30 by Chavez Dong) Discharge planning issues (Acute) DVT prophylaxis (Acute) Rhabdomyolysis (Acute) Acute renal failure due to rhabdomyolysis (Acute) Acute back pain (Acute) Intoxication due to misuse of recreational drug (Acute) cephalexin monohydrate [From Keflex] Allergy (Intermediate, Verified 03/04/20 21:10) Skin Rash zaleplon [From Sonata] Allergy (Unknown, Verified 03/04/20 21:10) oxycodone HCl [From OxyContin] Adverse Reaction (Intermediate, Verified 03/04/20 21:10) Nausea buspirone Adverse Reaction (Unknown, Verified 03/04/20 21:10) Disconnected feeling sertraline HCl [From Zoloft] Adverse Reaction (Unknown, Verified 03/04/20 21:10) Disconnect feeling, I dont feel like myself Height 5 ft 6 in Weight 65.5 kg - Renal Dosing Renal Dosing: BUN 8 mg/dL (7-18) D 03/05/20 06:34 Creatinine 0.97 mg/dL (0.55-1.02) 03/05/20 06:34 - Anticoagulation Anticoagulation: Hgb 8.6 g/dL (11.2-15.7) L 03/05/20 06:34 Hct 26.1 % (36.0-46.0) L 03/05/20 06:34 Plt Count 146 10^3/uL (130-400) 03/05/20 06:34 Creatinine 0.97 mg/dL (0.55-1.02) 03/05/20 06:34 - Relevant Labs ESR 35 mm/hr (0-30) H 03/04/20 21:30 Sodium 143 mmol/L (136-145) 03/05/20 06:34 Potassium 3.4 mmol/L (3.5-5.1) L 03/05/20 06:34 Chloride 111 mmol/L (98-107) H 03/05/20 06:34 Magnesium 2.2 mg/dL (1.8-2.4) 03/04/20 21:00 C-Reactive Protein 0.97 mg/dL (0.0-0.3) H 03/04/20 21:00 - DM Control DM Control: Glucose 94 mg/dL (74-106) 03/05/20 06:34 Insulin Dosing: N/A - Heart Failure/AL EF%, HARMAN's, B-Blockers, Diuretics: N/A - BP Control BP Control: Blood Pressure 123/79 Blood Pressure 120/79 Blood Pressure 138/91 Blood Pressure 136/95 Blood Pressure 136/95 If elevated: Reviewed - Qtc Review If Elevated: Reviewed List meds needing interventions: QTc 516 - IV to PO Switch IV Medications: Reviewed - Home Meds Home Med List reviewed: Intervened (reviewed orders, cleaned up) Relevent Home Meds Not ordered & why?: trazodone - Current meds Current Medication Order Review: Reviewed
--- NOTE | 2020-03-05 12:17 | W.NUTRFU ---
Date of service: 03/05/20 Time of Service: 12:17 Nutritional Follow up NOTE: 50 year old female admitted with opiod abuse, with hx of methadone treatment, PTSD, bipolar and dysphagia. BMI wnl and stable > 1 year. Currently following regular diet. No concerns with swallowing reported at this time. Will continue to follow. Time Spent in Nutritional Counseling and Treatment: 0
[2020-03-05 14:32] LABS: Anion Gap 7.9 mmol/L (3-11); BUN 7 mg/dL (7-18); CO2 24.1 mmol/L (21.0-32.0); CREATININE 0.81 mg/dL (0.55-1.02); Calcium 7.7 mg/dL (8.5-10.1); Chloride 111 mmol/L (98-107); Glucose 115 mg/dL (74-106); Potassium 3.8 mmol/L (3.5-5.1); Sodium 143 mmol/L (136-145)
[2020-03-05 14:34] LABS: Creatine Kinase 5717 U/L (26-192)
[2020-03-05 15:54] LABS: COVID-19 RT-PCR UVMMC Result Negative (Negative)
--- NOTE | 2020-03-06 08:54 | DSE_ITS ---
Date of service: 03/06/20 Time of Service: 08:54 DS: Diagnosis Discharge Diagnosis (1) Rhabdomyolysis: Status: Acute (2) Acute renal failure due to rhabdomyolysis: Status: Acute (3) Acute back pain: Status: Acute (4) Intoxication due to misuse of recreational drug: Status: Acute (5) DVT prophylaxis: Status: Acute (6) Discharge planning issues: Status: Acute Discharge Plan Disposition Patient Disposition: AGAINST MEDICAL ADVICE Condition: Fair Discharge Details Reason For Visit: BACK PAIN,DRUG ABUSE Admit Date/Time: 03/04/20 23:36 Admit Provider: Chavez Dong Attending Provider: Chavez Dong Primary Care Provider: Laura Blackwell Hospital Course Hospital Course: Patient left ama after admission for rhabdo because she wanted her methadone. Home Meds and New Rx's Prescriptions: Continued methadone 10 mg/5 mL solution 105 mg PO DAILY RF: 0 albuterol sulfate [ProAir HFA] 90 mcg/actuation HFA aerosol inhaler 2 puff IH Q6H PRNRF: 0 clonazepam 0.5 mg tablet 0.5 mg PO BID PRNRF: 0 trazodone 100 MG tablet 200 mg PO HS RF: 0 No Action estradiol 1 mg tablet 1 mg PO DAILY RF: 0 pregabalin 100 mg capsule 100 mg PO BID RF: 0 ibuprofen 800 mg tablet 800 mg PO TID PRNRF: 0 Discharge Instructions Referrals: Laura Blackwell [Primary Care Provider] - Diet:: As Tolerated Discharge Data Discharge Date/Time-TO BE ENTERED AT DEPARTURE: 03/05/20 18:01 DS: Summary Status at Discharge Functional status at discharge: independent ambulation Overall status at discharge: patient is back to baseline Mental Status: mental status grossly normal Speech and Movement: speech and movement normal Mood: congruent mood Affect: normal affect Exam Psych Mental Status: mental status grossly normal Speech and Movement: speech and movement normal Mood: congruent mood Affect: normal affect DS: Data Vitals/I&O Vitals and I&O: Vital Signs Temperature 37.3 C 03/05/20 15:24 Temperature Source Temporal Artery Scan 03/05/20 15:24 Pulse 85 03/05/20 15:24 Pulse Rhythm Regular 03/05/20 16:15 Pulse 75 03/05/20 00:30 Respiratory Rate 17 03/05/20 15:24 Respiratory Effort 03/05/20 16:15 Respiratory Depth Normal 03/05/20 16:15 Respiratory Pattern Normal 03/05/20 16:15 Blood Pressure 144/90 H 03/05/20 15:26 Blood Pressure Mean 79 03/05/20 00:01 Pulse Oximetry 94 03/05/20 15:24 Oxygen Delivery Method Room Air 03/05/20 15:24 Oxygen Flow Rate 0 03/05/20 15:24 Fraction of Inspired Oxygen (FIO2) 2 03/04/20 21:35 Pain Level 6 03/05/20 15:24 Comment 03/05/20 15:24 Intake & Output 03/05/20 03/05/20 03/06/20 11:59 23:59 11:59 Intake Total 3033.334 / 4273.334 1240 / 4273.334 Output Total 1030 / 1330 300 / 1330 Balance 2003.334 / 2943.334 940 / 2943.334 Weight 65.5 kg Intake: IV 2883.334 / 3883.334 1000 / 3883.334 Oral 150 / 390 240 / 390 Output: Urine 1030 / 1330 300 / 1330 Other: Urine Color Yellow Straw Urine Appearance Clear Clear Urine Odor Normal Comment urine obtained for specimen before d/c reich Voiding Methods Toilet Data Completed and Pending Labs on day of discharge: Labs from last 24 hours 03/05/20 03/05/20 03/05/20 14:00 10:25 00:05 Sodium 143 Potassium 3.8 Chloride 111 H Carbon Dioxide 24.1 Anion Gap 7.9 BUN 7 Creatinine 0.81 Estimated GFR/1.73 m2 >= 60.00 Glucose 115 H Calcium 7.7 L Creatine Kinase 5717 H Urine Myoglobin Pending COVID-19 PCR Negative Nasopharyn COVID-19 PCR Not Applicable Ref Test Perform Site [facility] Preliminary micro results at discharge 03/04/20 22:40 Blood Culture - Preliminary Blood NO GROWTH 24 HOURS [facility] Medical History (Updated 03/05/20 @ 11:13 by Shelli Sandhu NP) Abnormal LFTs Abnormal mammogram Adenomatous colon polyp Anemia Anxiety Benzodiazepine overdose Per pt. is unaware of this Borderline personality disorder Pt. states she is not aware of this dx Breast mass in female Chronic neck pain Chronic pain Combinations of opioid type drug with any other drug dependence, in remission Constipation The problem was part of today's visit Depression Endometriosis Female rectocele without uterine prolapse First degree AV block Hepatitis C Pt. states she was unaware of this Hx of colonic polyps Hx of drug dependence On methadone Laceration of wrist Low back pain Memory impairment Nausea & vomiting Noncompliance a. multiple missed outpatient appts with PCP's office per their records Normal colonoscopy (01/16/17) Dr Noriega recommended next in 10 yrs Opioid dependence Panic disorder Sacroiliac joint dysfunction of right side Tobacco abuse Tobacco abuse Surgical History Abdominal hysterectomy Arthroscopy, Shoulder Colonoscopy - [facility] (01/16/17) H/O cervical spine surgery (~10/16/18) fusion 1988 H/O spinal fusion Hx laparoscopic cholecystectomy Lorne Fundoplication S/P wrist surgery Social History Smoking/Tobacco Use Status: Current every day Tobacco Type: e-cigarettes Smoking risk assessment performed?: Yes Alcohol Intake: never Drug use: Current Sobriety Substance use type: opiates Details: unable to assess in private Number of Children: 2 What type of physical activity do you participate in: none Do you feel safe at home: Yes Do you feel safe in your relationship?: Yes
--- NOTE | 2020-03-06 10:29 | PDOC.CMPRO ---
- If Service Date Differs Date of service: 03/06/20 Time of Service: 10:30 Care Management Progress Note S/O: LORETTA received a call from Jodee concerned about her test results from the day before. She left AMA last evening she states she was scared and did not know what was wrong so she left. Today she is complaining about constipation she states that she only has a bowel movement every two weeks. She is on Methadone she states she has been for 25 years. She states the constipation has been ongoing. CM reviewed with provider, then reviewed recommendations with Jodee including drink lots of fluids including water to stay hydrated and help with the constipation. We discussed over the counter treatments for constipation including stool softeners and laxative. CM recommended if Jodee feels any of her symptoms become worse to return to the ED and on Sunday contact her provider at [facility] to schedule a hospital follow up. Jodee agrees to follow up and return to the ED before Sunday if needed.
[2020-03-06 12:48] LABS: Myoglobin, U 29 mcg/L (<=65)
== END 2020-03-05 18:01 | disposition left against medical advice (07) ==
LOC: ER 23:56 → MS 03-05 00:11
PROVIDERS: Admitting Provider Internal Medicine; Emergency Provider Nurse Practitioner Acute Care; PCP Nurse Practitioner Family; Visit Provider Internal Medicine
DX: N17.9 Acute kidney failure, unspecified (principal); F14.129 Cocaine abuse with intoxication, unspecified; M54.42 Lumbago with sciatica, left side; M62.82 Rhabdomyolysis; F31.9 Bipolar disorder, unspecified; F43.10 Post-traumatic stress disorder, unspecified; D64.9 Anemia, unspecified; I44.0 Atrioventricular block, first degree; K59.00 Constipation, unspecified; F17.290 Nicotine dependence, other tobacco product, uncomplicated; F11.20 Opioid dependence, uncomplicated
CPT/HCPCS: 36415; 36416; 51702; 72158; 80048; 80053; 80307; 82550; 82805; 82962; 85652; 87040; 93005; 96361; 99217; 99220; 99285; NC; U0003; 70450; 70551; 72146; 74176; 80320; 81003; 81015; 82140; 82565; 83735; 83874; 84300; 85025; 86140; 93010; G0378; J1644; J3360

== ENCOUNTER 2020-05-10 22:57 | Emergency (ER) | payer MEDICAID, SELFPAY ==
--- NOTE | 2020-05-10 22:45 | RT.EKG_ITS ---
APPROVED REPORT Exam: Resting ECG Patient Location: E HR:101 bpm ECG Measurements Heart Rate 101 AXIS ID 192 P 61 QRSd 78 QRS 46 QT 372 T 48 QTc 483 Conclusion Sinus tachycardia...rate> 99 Probable LVH with secondary repol abnrm...multiple LVH criteria
[2020-05-10 22:56] VITALS: BP 169/73; PULSE 98; RESP 20; TEMP 37.1; O2SAT 100
--- NOTE | 2020-05-10 23:00 | DI.CT_ITS ---
EXAM: CT CHEST PE CTA CLINICAL HISTORY: chest pain and dyspnea. TECHNIQUE: Imaging Protocol: Axial CT angiography was performed with multi-slice acquisition and mu lti-planar and/or 3D reconstructions. CONTRAST MATERIAL: Intravenous: Omnipaque 350 Contrast volume:61 mL COMPARISON: CT CT CHEST PE CTA from 01/28/2020 FINDINGS: Tracheobronchial tree: Patent where visualized. Pulmonary parenchyma: No consolidation or dominant measurable mass. Emphysematous changes are present lungs. Dependent atelectasis is present. There is a 0.5 cm noncalcified pulmonary nodule associate d with the left major fissure with a triangular shape. The findings suggestive of a lymph node. (Se jf 8, image 190). Pulmonary Arteries: No evidence of filling defect to suggest pulmonary emboli. Mediastinum and Yvonne: No dominant adenopathy or fluid collection. Moderate hiatal hernia. Visualized thyroid gland: Unremarkable. Pleura: No effusion or pneumothorax. Heart: The heart is not dilated. No coronary artery calcifications are seen. No pericardial effusion. Aorta: Thoracic aorta non-dilated. No evidence of dissection. Upper abdomen: Status post cholecystectomy. Soft tissues: Unremarkable. Bones: Normal. IMPRESSION: 1. No evidence of pulmonary embolism, thoracic aortic dissection or aneurysm. 2. 5 mm nodule associated with the left major fissure. This may represent a lymph node. For low ris k patients, no routine follow-up is indicated. For patients at high risk (history of smoking or othe r known risk factors), considered CT scan of the chest at 12 months. RADIATION DOSE DELIVERED: 268.83mGy.cm Total DLP DATA REPOSITORY: All CT scans at this facility are submitted to the National Radiology Data Registry (NRDR) Dose Index Registry (DIR) with the [employer] (ACR). RADIATION OPTIMIZATION: All CT scans at this facility use at least one of these dose optimization te chniques: automated exposure control; mA and/or kV adjustment per patient size (includes targeted exa ms where dose is matched to clinical indication); or iterative reconstruction.
[2020-05-10 23:01] VITALS: RESP 20
[2020-05-10 23:12] VITALS: BP 169/93; PULSE 93
--- NOTE | 2020-05-10 23:14 | W.ED.GENAD ---
Discharge Plan Disposition Patient Disposition: HOME Condition: Stable Discharge Details Clinical Impression: Hypokalemia, Anxiety, Lung nodule, Racing heart beat Primary Care Provider: Laura Blackwell ED Provider: Scott Ryder Home Meds and New Rx's Prescriptions: Continued methadone 10 mg/5 mL solution 105 mg PO DAILY RF: 0 albuterol sulfate [ProAir HFA] 90 mcg/actuation HFA aerosol inhaler 2 puff IH Q6H PRNRF: 0 clonazepam 0.5 mg tablet 0.5 mg PO BID PRNRF: 0 trazodone 100 MG tablet 200 mg PO HS RF: 0 estradiol 1 mg tablet 1 mg PO DAILY RF: 0 pregabalin 100 mg capsule 100 mg PO BID RF: 0 ibuprofen 800 mg tablet 800 mg PO TID PRNRF: 0 doxycycline hyclate [Morgidox] 100 mg capsule 100 mg PO BID Qty: 14 RF: 0 Discharge Instructions Instructions: Hypokalemia (ED), Anxiety (ED) Additional Instructions: follow up with your primary care provider within 1 week and have your potassium rechecked and advise them of the lung nodule on the cat scan if you feel more ill, have difficulty breathing or chest pressure return to the emergency department Medical Decision Making 50 yo female with hx of anxiety, borderline personality disorder, prior opiate abuse now on methadone and recently treated for CAP comes in with complaints of feeling heart racing for 4 hours and feeling anxious. She states she had just showered when this happened tonight. Denies drug use or alcohol use tonight. She denies any pain inthe chest though does feel mild dyspnea. She arrives appearing anxious hemodynamically stable with mild sinus tachycardia, no leg swelling or calf pain, no focal motor or sensation deficits, clear lungs. Suspect this is anxiety will tx with ativan. Given her age however and symptoms of heart racing with some dyspnea and recent tx for pna feel Pe and pna should be evaluated for with CT. Her heart score is 3, will obtain troponin. She feels her heart racing now and is in sinus tachycardia with rate of 101 on exam so doubt svt or other arrythmia. Pt sleeping on reassessment and awakens easily appears less anxious. Other than K of 3.0 no significant changes on labs ct shows no emergent findings does have pulmonary nodule and I told her about this and she needs to inform her pcp of it as well. she is hemodynamically stable and I suspect her symptoms are due to anxiety. Will d/c and have her f/u with pcp, return precautions given Differential Diagnosis Differential Diagnosis: anxiety, pnemonia, pe, electrolyte abnormality, Medical Records Medical records reviewed: Yes I reviewed the patient's medical records. Imaging Data Radiologic Study: Attestation: I personally reviewed and interpreted this imaging study as follows: Imaging: CT Scan Radiologist's impression: No evidence for PE Nonspecific dependent pulmonary atelectasis Centrilobular emphysema Left upper lobe pulmonary nodule measures 6 mm and requires follow-up according to institutional protocolFor patients at low risk (minimal or absent history of smoking and of other known risk factors), no routine follow-up is indicated. For patients at high risk (history of smoking or of other known risk factors), consider optional CT Chest at 12 months. (Reference: Raji). References: Raji Estrada, et al. Guidelines for Management of Incidental Pulmonary Nodules Detected on CT Images: From the Fleischner Society 2017. Radiology. 2017;284(1):228-243. ECG Data Attestation: I personally reviewed and interpreted this ECG (s) as follows: Prior ECG tracings: not available for review Interpretation: sinus tachycardia, rate of 101, pr 192, qtc 483 HPI General Mode of arrival: EMS. Date/Time Provider Initiated Documentation: 05/10/20 22:59. Limitations to Documentation: no limitations. Information obtained by: patient. History of Present Illness 50 year old F presents to the emergency department with the chief complaint of heart racing, described as moderate, Patient started experiencing this hour(s) (4) and it has been constant. No relieving factors improve symptom(s), No exacerbating factors reported . Patient notes other (anxious). Related Data Home Medications Medication Instructions Recorded Confirmed trazodone 200 mg PO HS 09/11/16 03/04/20 methadone 10 mg/5 mL oral solution 105 mg PO DAILY ml 01/07/18 03/04/20 albuterol sulfate 90 mcg/actuation 2 puff IH Q6H PRN 11/21/19 03/04/20 aerosol inhaler clonazepam 0.5 mg PO BID PRN 12/29/19 03/04/20 estradiol 1 mg PO DAILY 03/05/20 03/05/20 ibuprofen 800 mg PO TID PRN 03/05/20 03/05/20 pregabalin 100 mg PO BID 03/05/20 03/05/20 doxycycline hyclate [Morgidox] 100 mg PO BID #14 cap 04/24/20 Previous Rx's Medication Instructions Recorded doxycycline hyclate [Morgidox] 100 mg PO BID #14 cap 04/24/20 Allergies Allergy/AdvReac Type Severity Reaction Status Date / Time cephalexin monohydrate Allergy Intermediate Skin Rash Verified 04/24/20 20:35 [From Keflex] zaleplon [From Sonata] Allergy Unknown Verified 04/24/20 20:35 oxycodone HCl AdvReac Intermediate Nausea Verified 04/24/20 20:35 [From OxyContin] buspirone AdvReac Unknown Disconnected Verified 04/24/20 20:35 feeling sertraline HCl [From Zoloft] AdvReac Unknown Disconnect Verified 04/24/20 20:35 feeling, I dont feel like myself General Stated Complaint: Anxiety LIO: 3 Review of Systems All systems reviewed & are unremarkable except as noted in HPI and below Constitutional Constitutional: Denies chills, Denies fever(s) and Denies weakness Respiratory Respiratory: Denies cough Gastrointestinal Gastrointestinal: Denies abdominal pain Musculoskeletal Musculoskeletal: Denies joint swelling Neurologic Neurologic: Denies weakness Endocrine Endocrine: Denies cold intolerance and Denies heat intolerance [facility] Medical History (Updated 05/10/20 @ 23:56 by Scott Ryder MD) Abnormal LFTs Abnormal mammogram Adenomatous colon polyp Anemia Anxiety Benzodiazepine overdose Per pt. is unaware of this Borderline personality disorder Pt. states she is not aware of this dx Breast mass in female Chronic neck pain Chronic pain Combinations of opioid type drug with any other drug dependence, in remission Constipation The problem was part of today's visit Depression Endometriosis Female rectocele without uterine prolapse First degree AV block Hepatitis C Pt. states she was unaware of this Hx of colonic polyps Hx of drug dependence On methadone Laceration of wrist Low back pain Memory impairment Nausea & vomiting Noncompliance a. multiple missed outpatient appts with PCP's office per their records Normal colonoscopy (01/16/17) Dr Noriega recommended next in 10 yrs Opioid dependence Panic disorder Sacroiliac joint dysfunction of right side Tobacco abuse Tobacco abuse Surgical History Abdominal hysterectomy Arthroscopy, Shoulder Colonoscopy - MAC (01/16/17) H/O cervical spine surgery (~10/16/18) fusion 1988 H/O spinal fusion Hx laparoscopic cholecystectomy Lorne Fundoplication S/P wrist surgery Social History Smoking/Tobacco Use Status: Current every day Tobacco Type: e-cigarettes Smoking risk assessment performed?: Yes Alcohol Intake: never Drug use: Current Sobriety Substance use type: opiates Details: unable to assess in private Number of Children: 2 What type of physical activity do you participate in: none Do you feel safe at home: Yes Do you feel safe in your relationship?: Yes Exam Const General: no acute distress and anxious Orientation: alert HENMT Head: normal to inspection Ears: external ears normal General nose exam: external nose normal Mouth: moist mucous membranes Eyes General: appearance normal, both eyes and all related structures Neck Neck: normal visual inspection Resp Effort & Inspection: normal respiratory effort and able to speak in complete sentences Cardio Rate: regular rate Skin General skin exam: no rashes or lesions noted Neuro General: patient alert and patient oriented x3 Extrem General: normal to inspection Psych Mental Status: mental status grossly normal Course Vital Signs Vital signs: Vital Signs Temperature 37.1 C 05/10/20 22:56 Pulse 98 H 05/10/20 22:56 Respiratory Rate 20 05/10/20 22:56 Blood Pressure 169/73 H 05/10/20 22:56 Pulse Oximetry 100 05/10/20 22:56 Temperature 37.1 C 05/10/20 22:56 Temperature Source Temporal Artery Scan 05/10/20 22:56 Pulse 98 H 05/10/20 22:56 Respiratory Rate 20 05/10/20 23:01 Respiratory Effort Non-Labored 05/10/20 23:01 Blood Pressure 169/73 H 05/10/20 22:56 Blood Pressure Position Supine 05/10/20 22:56 Pulse Oximetry 100 05/10/20 22:56 Oxygen Delivery Method Room Air 05/10/20 22:56 Oxygen Flow Rate 0 05/10/20 22:56 Pain Level 0 05/10/20 22:56
[2020-05-10 23:18] VITALS: O2SAT 97
[2020-05-10] MEDS: LORazepam 2 MG/ML VIAL 1 MG IVP (23:18)
[2020-05-10 23:19] VITALS: BP 148/79; PULSE 79; O2SAT 96
[2020-05-10 23:20] VITALS: O2SAT 96
[2020-05-10 23:26] LABS: Abs Immature Grans 0.01 10^3/uL (0.0-0.06); Absolute Basophil Count 0.02 10^3/uL (0.0-0.2); Absolute Eosinophil Count 0.04 10^3/uL (0.0-0.7); Absolute Lymphocyte Count 2.07 10^3/uL (1.2-3.4); Absolute Monocyte Count 0.36 10^3/uL (0.1-0.8); Basophils % 0.5; HCT 33.6 % (36.0-46.0); HGB 10.9 g/dL (11.2-15.7); Immature Grans % 0.3; Lymphocytes % 53.1; MCHC 32.4 % (32.0-36.0); MCV 89.4 fL (80-95); MPV 8.9 fL (8.0-11.0); Monocytes % 9.2; Neutrophils % 35.9; Nucleated RBC 0 %; Platelet Count 278 10^3/uL (130-400); RBC 3.76 10^6/uL (3.93-5.22); RDW 12.9 % (11.7-14.6); RDW-SD 42.2 fL
[2020-05-10 23:40] LABS: PTT Activated 23.4 sec (21.0-27.5); Prothrombin Time 10.1 sec (9.3-11.0)
[2020-05-10] MEDS: Omnipaque 350 MG/ML 100 ML BTL IJ (23:40)
[2020-05-10] MEDS: Normal Saline - Diluent 50 ML VIAL IV (23:41)
[2020-05-10] MEDS: Normal Saline Flush 10 ML SYR IVP (23:41)
[2020-05-10 23:45] LABS: ALT 19 U/L (14-59); AST 18 U/L (15-37); Albumin 3.6 g/dL (3.4-5.0); Alkaline Phosphatase 85 U/L (46-116); Anion Gap 9.7 mmol/L (3-11); BUN 12 mg/dL (7-18); Bilirubin, Total 0.1 mg/dL (0.2-1.0); CO2 26.3 mmol/L (21.0-32.0); CREATININE 0.85 mg/dL (0.55-1.02); Calcium 9.2 mg/dL (8.5-10.1); Chloride 104 mmol/L (98-107); Glucose 122 mg/dL (74-106); Magnesium 1.8 mg/dL (1.8-2.4); Sodium 140 mmol/L (136-145)
[2020-05-10 23:49] LABS: Troponin I < 0.05 ng/mL (<0.06)
--- NOTE | 2020-05-10 23:53 | DI.VRAD_ITS ---
PROCEDURE INFORMATION: Exam: CT Angiography Chest With Contrast Exam date and time: 05/10/2020 11:02 PM Age: 50 years old Clinical indication: Type not specified; Patient HX: Chest pain, dyspnea TECHNIQUE: Imaging protocol: Computed tomographic angiography of the chest with intravenous contrast. 3D rendering (Not supervised by radiologist): MIP and/or 3D reconstructed images were created by the technologist. Radiation optimization: All CT scans at this facility use at least one of these dose optimization techniques: automated exposure control; mA and/or kV adjustment per patient size (includes targeted exams where dose is matched to clinical indication); or iterative reconstruction. Contrast material: OMNIPAQUE 350; Contrast volume: 61 ml; Contrast route: INTRAVENOUS (IV); COMPARISON: CT CHEST PE CTA 01/28/2020 3:27 PM FINDINGS: Pulmonary arteries: There is no evidence for PE. Aorta: Unremarkable. No aortic aneurysm. No aortic dissection. Lungs: Centrilobular emphysema is present. Basilar dependent pulmonary atelectasis is present. Left upper lobe pulmonary nodule measures 6 mm and requires follow-up according to institutional protocolFor patients at low risk (minimal or absent history of smoking and of other known risk factors), no routine follow-up is indicated. For patients at high risk (history of smoking or of other known risk factors), consider optional CT Chest at 12 months. (Reference: Raji). References: Raji Estrada et al. Guidelines for Management of Incidental Pulmonary Nodules Detected on CT Images: From the Fleischner Society 2017. Radiology. 2017;284(1):228-243.. Pleural space: Unremarkable. No pneumothorax. No pleural effusion. Heart: Unremarkable. No cardiomegaly. No pericardial effusion. Mediastinal space: Small to moderate hiatal hernia Lymph nodes: Unremarkable. No enlarged lymph nodes. Bones/joints: Unremarkable. No acute fracture. Soft tissues: Unremarkable. IMPRESSION: No evidence for PE Nonspecific dependent pulmonary atelectasis Centrilobular emphysema Left upper lobe pulmonary nodule measures 6 mm and requires follow-up according to institutional protocolFor patients at low risk (minimal or absent history of smoking and of other known risk factors), no routine follow-up is indicated. For patients at high risk (history of smoking or of other known risk factors), consider optional CT Chest at 12 months. (Reference: Raji). References: MacMahon H, et al. Guidelines for Management of Incidental Pulmonary Nodules Detected on CT Images: From the Fleischner Society 2017. Radiology. 2017;284(1):228-243.. Dictated and Authenticated by: Kentrell Marshall MD. Ordering:AROLDO Chavez MD
[2020-05-10 23:55] LABS: ETHANOL BLOOD < 3.0 mg/dL (<3)
[2020-05-11] MEDS: Potassium Chloride 20 MEQ TABCR 40 MEQ PO (00:01)
[2020-05-11] MEDS: LORazepam 1 MG TAB PO (00:16)
[2020-05-11 00:17] VITALS: BP 148/79; PULSE 79; RESP 20; TEMP 37.1; O2SAT 96
== END 2020-05-11 00:55 | disposition home or self-care (01) ==
PROVIDERS: Emergency Provider Emergency Medicine; PCP Nurse Practitioner Family
DX: E87.6 Hypokalemia (principal); R00.2 Palpitations; F41.8 Other specified anxiety disorders
CPT/HCPCS: 36415; 71275; 80053; 93005; 99285; 80320; 83735; 84484; 85025; 85610; 85730; 93010; 99284; J2060; J3490

== ENCOUNTER 2020-05-28 19:34 | Outpatient (REF) | payer MEDICAID, SELFPAY ==
[2020-05-29 14:38] LABS: COVID-19 RT-PCR UVMMC Result Negative (Negative)
== END 2020-05-28 19:35 | disposition home or self-care (01) ==
LOC: NCHCN 19:34
PROVIDERS: PCP Nurse Practitioner Family; Visit Provider Nurse Practitioner Family
DX: Z20.822 Contact with and (suspected) exposure to COVID-19 (principal)
CPT/HCPCS: U0003

== ENCOUNTER 2020-06-04 13:19 | Outpatient (REF) | payer MEDICAID, SELFPAY | END 2020-06-04 13:20 | disposition home or self-care (01) | LOC: NCHCN 13:19 | PROVIDERS: PCP Nurse Practitioner Family; Visit Provider Family Medicine | DX: N39.0 Urinary tract infection, site not specified (principal) | CPT/HCPCS: 87086 ==

== ENCOUNTER 2020-09-07 03:35 | Outpatient (CLI) | payer MEDICAID, SELFPAY ==
--- NOTE | 2020-09-07 08:00 | RT.EKG_ITS ---
APPROVED REPORT Exam: Resting ECG Reason for Exam: High Risk Medication Patient Location: O HR:80 bpm ECG Measurements Heart Rate 80 AXIS SD 189 P 54 QRSd 71 QRS 35 QT 389 T 51 QTc 449 Conclusion Sinus rhythm...normal P axis, V-rate 60- 99 Probable left atrial enlargement...P >50mS, <-0.10mV V1
== END 2020-09-07 03:36 | disposition home or self-care (01) ==
LOC: RT 03:35
PROVIDERS: PCP Nurse Practitioner Family; Visit Provider Family Medicine
DX: Z79.899 Other long term (current) drug therapy (principal); Z13.6 Encounter for screening for cardiovascular disorders
CPT/HCPCS: 93005; 93010

== ENCOUNTER 2020-09-17 14:57 | Outpatient (CLI) | payer MEDICAID, SELFPAY ==
--- NOTE | 2020-09-17 | DI.RAD_ITS ---
Exam(s) XR WRIST LT COMP NAVICULAR EXAM: XR WRIST LT COMP NAVICULAR CLINICAL HISTORY: PAIN LT WRIST, M25.532 TECHNIQUE: COMPARISON: CR LEFT WRIST LIMITED from 07/05/2016 FINDINGS: Four views were obtained. Alignment of the carpus appears within normal limits. No bony or soft tis kerwin abnormality seen. IMPRESSION: RADIATION DOSE DELIVERED: Total DLP
== END 2020-09-17 15:17 ==
PROVIDERS: PCP Nurse Practitioner Family; Visit Provider Physician Assistant Medical
DX: M25.532 Pain in left wrist (principal)
CPT/HCPCS: 73110

== ENCOUNTER 2020-10-02 18:30 | Outpatient (REF) | payer MEDICAID, SELFPAY ==
[2020-10-04 22:08] LABS: COVID-19 RT-PCR UVMMC Result Positive (Negative)
== END 2020-10-02 18:31 | disposition home or self-care (01) ==
LOC: LBN 18:30
PROVIDERS: PCP Nurse Practitioner Family; Visit Provider Nurse Practitioner Family
DX: Z20.822 Contact with and (suspected) exposure to COVID-19 (principal); J06.9 Acute upper respiratory infection, unspecified
CPT/HCPCS: U0003

== ENCOUNTER 2020-10-16 15:25 | Outpatient (REF) | payer MEDICAID, SELFPAY | END 2020-10-16 15:26 | disposition home or self-care (01) | LOC: LBN 15:25 | PROVIDERS: PCP Nurse Practitioner Family; Visit Provider Physician Assistant Medical | DX: R31.9 Hematuria, unspecified (principal) | CPT/HCPCS: 87086 ==

== ENCOUNTER 2020-10-20 09:44 | Emergency (ER) | payer MEDICAID, SELFPAY ==
[2020-10-20 09:46] VITALS: BP 120/99; PULSE 92; RESP 22; TEMP 36.6; O2SAT 95
--- NOTE | 2020-10-20 10:00 | DI.RAD_ITS ---
Exam(s) XR SHOULDER RT COMPLETE 2+V EXAM: XR SHOULDER RT COMPLETE 2+V CLINICAL HISTORY: Fall, R/O Fracture. TECHNIQUE: 2D digital imaging was performed. COMPARISON: CR RIGHT SHOULDER COMPLETE from 07/21/2012 FINDINGS: There is prominent widening of the AC joint, more so than was evident on the 2013 images There is no fracture or dislocation of glenohumeral joint but there is a calcific density in the suba cromial space measuring 5 x 3 millimeters, probably calcific tendinitis. No other calcifications in the subacromial space. There appears to resection of the lateral aspect of the clavicle. IMPRESSION: Calcific rotator cuff tendinitis. Surgically widened-decompressed AC joint DATA REPOSITORY: RADIATION DOSE DELIVERED:
--- NOTE | 2020-10-20 10:00 | DI.RAD_ITS ---
Exam(s) XR KNEE LT 3V AP,LAT,MAUREEN EXAM: XR KNEE LT 3V AP,LAT,MAUREEN CLINICAL HISTORY: Fall, Knee pain. TECHNIQUE: 2D digital imaging was performed. COMPARISON: No exams were available for comparison FINDINGS: Three views of the left knee reveal no evidence of acute fracture more prominent joint effusion. The re is a lucency in the lateral femoral condyle which measures 8 by 5 millimeters. Has the appearance of a benign bone lesion. Sclerotic densities in the distal diaphysis of the femur and proximal diaphysis of the tibia noted, e xhibiting benign findings. On the frontal view there is focal swelling of soft tissues off the medial aspect of the joint. IMPRESSION: DATA REPOSITORY: RADIATION DOSE DELIVERED:
--- NOTE | 2020-10-20 10:00 | DI.RAD_ITS ---
Exam(s) XR ELBOW RT COMPLETE EXAM: XR ELBOW RT COMPLETE CLINICAL HISTORY: Fall, Contusion. TECHNIQUE: 2D digital imaging was performed. COMPARISON: No exams were available for comparison FINDINGS: There is no evidence of fracture nor obvious joint effusion. However, there is some swelling of the olecranon bursa. No radiopaque foreign body noted at the level of this swollen olecranon bursa. IMPRESSION: DATA REPOSITORY: RADIATION DOSE DELIVERED:
[2020-10-20] MEDS: Ibuprofen 600 MG TAB PO (10:04)
--- NOTE | 2020-10-20 10:07 | ED.GENADUL_ITS ---
Discharge Plan Disposition Patient Disposition: HOME Condition: Stable Discharge Details Clinical Impression: Fall Primary Care Provider: Laura Blackwell ED Provider: Eufemia Sauceda Home Meds and New Rx's Prescriptions: Continued methadone 10 mg/5 mL solution 115 mg PO DAILY RF: 0 albuterol sulfate [ProAir HFA] 90 mcg/actuation HFA aerosol inhaler 2 puff IH Q6H PRNRF: 0 clonazepam 0.5 mg tablet 0.5 mg PO BID PRNRF: 0 estradiol 1 mg tablet 1 mg PO DAILY RF: 0 pregabalin 100 mg capsule 150 mg PO BID RF: 0 ibuprofen 800 mg tablet 800 mg PO TID PRNRF: 0 No Action trazodone 100 MG tablet 100 mg PO HS RF: 0 doxycycline hyclate [Morgidox] 100 mg capsule 100 mg PO BID Qty: 14 RF: 0 quetiapine 100 mg tablet 50 mg PO HS RF: 0 Discharge Instructions Instructions: Fall Prevention (ED) Additional Instructions: The x-rays show no broken bones. Follow up with primary care provider in 3-5 days. Return to ED or be seen at urgent care or PCP sooner if any worsening or concerns. Increase oral fluids. Please take Tylenol or Ibuprofen with food every 4-6 hours as needed for pain and swelling. Rest, ice, compression, elevation. Referrals: Laura Blackwell [Primary Care Provider] - Medical Decision Making 50-year-old female presents to the ER chief complaint of left knee pain, right shoulder pain and right hand pain status post fall which she reports have been approximately an hour and a half ago. Patient states she was walking up a incline when she fell while wearing clogs. Patient denies loss of consciousness no head injury. She is complaining of left knee pain, right shoulder pain and right hand pain. Patient is moving all 4 extremities without difficulty no obvious deformity. No significant soft tissue swelling or signs of infection. Distal CMS intact. Patient has a history of drug dependence, anemia, rhabdo, and borderline personality disorder, she is on methadone 150 mg daily which she did take this morning. She was also recently started on Focalin. She denies any alcohol does endorse crack couple days ago. She does appear very agitated and having fluid upon arrival. EXAM: XR HAND RT COMPLETE CLINICAL HISTORY: Fall, Hand pain. TECHNIQUE: 2D digital imaging was performed. COMPARISON: No exams were available for comparison FINDINGS: There is no evidence of fracture nor dislocation. No radiopaque foreign body. No osseous lesions. No erosions evident. EXAM: XR ELBOW RT COMPLETE CLINICAL HISTORY: Fall, Contusion. TECHNIQUE: 2D digital imaging was performed. COMPARISON: No exams were available for comparison FINDINGS: There is no evidence of fracture nor obvious joint effusion. However, there is some swelling of the olecranon bursa. No radiopaque foreign body noted at the level of this swollen olecranon bursa. CLINICAL HISTORY: Fall, Knee pain. TECHNIQUE: 2D digital imaging was performed. COMPARISON: No exams were available for comparison FINDINGS: Three views of the left knee reveal no evidence of acute fracture more prominent joint effusion. There is a lucency in the lateral femoral condyle which measures 8 by 5 millimeters. Has the appearance of a benign bone lesion. Sclerotic densities in the distal diaphysis of the femur and proximal diaphysis of the tibia noted, exhibiting benign findings. On the frontal view there is focal swelling of soft tissues off the medial aspect of the joint. EXAM: XR SHOULDER RT COMPLETE 2+V CLINICAL HISTORY: Fall, R/O Fracture. TECHNIQUE: 2D digital imaging was performed. COMPARISON: CR RIGHT SHOULDER COMPLETE from 07/21/2012 FINDINGS: There is prominent widening of the AC joint, more so than was evident on the 2013 images There is no fracture or dislocation of glenohumeral joint but there is a calcific density in the subacromial space measuring 5 x 3 millimeters, probably calcific tendinitis. No other calcifications in the subacromial space. There appears to resection of the lateral aspect of the clavicle. IMPRESSION: Calcific rotator cuff tendinitis. Surgically widened-decompressed AC joint Informed by senior staff consultant that patient is walking around room in no apparent dist ress. We will plan to discharge home. Patient was discharged with RICE procedures, ambulatory without assistance, was given an Georgi wrap for her knee. Patient was given a ride with RCT to home. HPI General Mode of arrival: EMS . Date/Time Provider Initiated Documentation: 10/20/20 09:46 . Information obtained by: patient, EMS and RN notes reviewed . HPI Narrative: 50-year-old female presents to the ER chief complaint of left knee pain, right shoulder pain and right hand pain status post fall which she reports have been approximately an hour and a half ago. Patient states she was walking up a incline when she fell while wearing clogs. Patient denies loss of consciousness no head injury. She is complaining of left knee pain, right shoulder pain and right hand pain. Patient is moving all 4 extremities without difficulty no obvious deformity. No significant soft tissue swelling or signs of infection. Distal CMS intact. Patient has a history of drug dependence, anemia, rhabdo, and borderline personality disorder, she is on methadone 150 mg daily which she did take this morning. She was also recently started on Focalin. She denies any alcohol does endorse crack couple days ago. She does appear very agitated and having fluid upon arrival. Related Data Home Medications Medication Instructions Recorded Confirmed trazodone 100 mg PO HS 09/11/16 10/20/20 methadone 10 mg/5 mL oral solution 115 mg PO DAILY ml 01/07/18 10/20/20 albuterol sulfate 90 mcg/actuation 2 puff IH Q6H PRN 11/21/19 03/04/20 aerosol inhaler clonazepam 0.5 mg PO BID PRN 12/29/19 10/20/20 estradiol 1 mg PO DAILY 03/05/20 10/20/20 ibuprofen 800 mg PO TID PRN 03/05/20 10/20/20 pregabalin 150 mg PO BID 03/05/20 10/20/20 doxycycline hyclate [Morgidox] 100 mg PO BID #14 cap 04/24/20 quetiapine 50 mg PO HS 10/20/20 10/20/20 Previous Rx's Medication Instructions Recorded doxycycline hyclate [Morgidox] 100 mg PO BID #14 cap 04/24/20 Allergies Allergy/AdvReac Type Severity Reaction Status Date / Time cephalexin monohydrate Allergy Intermediate Skin Rash Verified 10/20/20 09:57 [From Keflex] zaleplon [From Sonata] Allergy Unknown Verified 10/20/20 09:57 oxycodone HCl AdvReac Intermediate Nausea Verified 10/20/20 09:57 [From OxyContin] buspirone AdvReac Unknown Disconnected Verified 10/20/20 09:57 feeling sertraline HCl [From Zoloft] AdvReac Unknown Disconnect Verified 10/20/20 09:57 feeling, I dont feel like myself General Stated Complaint: GenMedical LIO: 3 Review of Systems All systems reviewed & are unremarkable except as noted in HPI and below PFSH Medical History (Updated 10/20/20 @ 11:13 by Eufemia Sauceda) Abnormal LFTs Abnormal mammogram Adenomatous colon polyp Anemia Anxiety Benzodiazepine overdose Per pt. is unaware of this Borderline personality disorder Pt. states she is not aware of this dx Breast mass in female Chronic neck pain Chronic pain Combinations of opioid type drug with any other drug dependence, in remission Constipation The problem was part of today's visit Depression Endometriosis Female rectocele without uterine prolapse First degree AV block Hepatitis C Pt. states she was unaware of this Hx of colonic polyps Hx of drug dependence On methadone Laceration of wrist Low back pain Memory impairment Nausea & vomiting Noncompliance a. multiple missed outpatient appts with PCP's office per their records Normal colonoscopy (01/16/17) Dr Noreiga recommended next in 10 yrs Opioid dependence Panic disorder Sacroiliac joint dysfunction of right side Tobacco abuse Tobacco abuse Surgical History Abdominal hysterectomy Arthroscopy, Shoulder Colonoscopy - MAC (01/16/17) H/O cervical spine surgery (~10/16/18) fusion 1988 H/O spinal fusion Hx laparoscopic cholecystectomy Lorne Fundoplication S/P wrist surgery Social History Smoking/Tobacco Use Status: Current every day Tobacco Type: e-cigarettes Smoking risk assessment performed?: Yes Alcohol Intake: never Drug use: Current Sobriety Substance use type: crack/cocaine and opiates Details: relapsed on crack 2 days ago Number of Children: 2 What type of physical activity do you participate in: none Do you feel safe at home: Yes Do you feel safe in your relationship?: Yes Exam Narrative Exam Narrative: General: Well Developed, Awake, conversant, slurred speech appears intoxicated. Skin: Warm and Dry HEENT: Head: No palpable deformities, Normocephalic Eyes: Pupils PERRLA, sluggish to light, EOM's intact. No periorbital eccymosis or step off Ears: Canal patent. Tympanic membranes are clear . No davis's sign, no hemptympanum. Nose/Face: Atraumatic. Facial bones nontender to palpation and stable with manipulation. Mouth/Throat: No intraoral trauma. Teeth and mandible are intact. Neck: No midline tenderness, no step off, no deformity to palpation of C-spine. Trachea midline. Chest: No surface trauma. Nontender without crepitus or deformity. Lungs clear to ausculatation bilaterally. Heart: RRR, no rubs, murmurs or gallop. Abdomen: No abrasions, ecchymosis, or surface trauma. Nondistended. Nontender to palpation no guarding, rebound, or rigidity. Pelvis: Nontender to palpation and stable to compression. Femoral pulses strong and equal Extremities no surface trauma. Sensation intact. Peripheral pulses intact and equal. Complaining of right hand pain right shoulder pain. Left knee pain small contusion and superficial abrasion noted to the left knee. Small contusion noted to right elbow. Neuro: ANO x4, GCS 15, cranial nerves II through XII intact. Motor and sensory exam nonfocal. Reflexes are symmetric. Course Vital Signs Vital signs: Vital Signs Temperature 36.6 C 10/20/20 09:46 Pulse 92 H 10/20/20 09:46 Respiratory Rate 22 10/20/20 09:46 Blood Pressure 120/99 H 10/20/20 09:46 Pulse Oximetry 95 10/20/20 09:46 Temperature 36.6 C 10/20/20 09:46 Temperature Source Skin 10/20/20 09:46 Pulse 92 H 10/20/20 09:46 Respiratory Rate 22 10/20/20 09:46 Respiratory Effort Non-Labored 10/20/20 09:53 Blood Pressure 120/99 H 10/20/20 09:46 Blood Pressure Position Sitting 10/20/20 09:46 Pulse Oximetry 95 10/20/20 09:46 Oxygen Delivery Method Room Air 10/20/20 09:46 Oxygen Flow Rate 0 10/20/20 09:46 Pain Level 9 10/20/20 09:46
--- NOTE | 2020-10-20 10:45 | DI.RAD_ITS ---
Exam(s) XR HAND RT COMPLETE EXAM: XR HAND RT COMPLETE CLINICAL HISTORY: Fall, Hand pain. TECHNIQUE: 2D digital imaging was performed. COMPARISON: No exams were available for comparison FINDINGS: There is no evidence of fracture nor dislocation. No radiopaque foreign body. No osseous lesions. No erosions evident. IMPRESSION: DATA REPOSITORY: RADIATION DOSE DELIVERED:
[2020-10-20 11:23] VITALS: BP 105/50; PULSE 86; TEMP 36.6; O2SAT 96
== END 2020-10-20 12:08 | disposition home or self-care (01) ==
PROVIDERS: Emergency Provider Registered Nurse Emergency; PCP Nurse Practitioner Family
DX: S49.81XA Other specified injuries of right shoulder and upper arm, initial encounter (principal); M25.562 Pain in left knee; W18.39XA Other fall on same level, initial encounter
CPT/HCPCS: 73562; 99284; 73030; 73080; 73130; 99283

== ENCOUNTER 2021-01-03 17:38 | Emergency (ER) | payer MEDICAID, SELFPAY ==
[2021-01-03 17:41] VITALS: BP 144/84; PULSE 94; RESP 18; TEMP 36.9; O2SAT 95
[2021-01-03 17:45] VITALS: RESP 20
--- NOTE | 2021-01-03 18:02 | W.ED.GENAD ---
Discharge Plan Disposition Patient Disposition: HOME Condition: Stable Discharge Details Clinical Impression: Hand paresthesia, Fall, Left leg paresthesias Primary Care Provider: Laura Blackwell ED Provider: Ashia Minor Home Meds and New Rx's Prescriptions: Continued methadone 10 mg/5 mL solution 115 mg PO DAILY RF: 0 albuterol sulfate [ProAir HFA] 90 mcg/actuation HFA aerosol inhaler 2 puff IH Q6H PRNRF: 0 clonazepam 0.5 mg tablet 0.5 mg PO BID PRNRF: 0 trazodone 100 MG tablet 100 mg PO HS RF: 0 estradiol 1 mg tablet 1 mg PO DAILY RF: 0 pregabalin 100 mg capsule 150 mg PO BID RF: 0 ibuprofen 800 mg tablet 800 mg PO TID PRNRF: 0 doxycycline hyclate [Morgidox] 100 mg capsule 100 mg PO BID Qty: 14 RF: 0 quetiapine 100 mg tablet 50 mg PO HS RF: 0 Discharge Instructions Instructions: Fall Prevention (ED) Additional Instructions: Your imaging is reassuring here today. Please encourage rest, ice and elevation of your left knee. I would like you to follow-up with your flat surgeon regarding your acute on chronic paresthesia of your left hand. Please discuss further with primary care, call tomorrow to make an appointment soon as possible. You may need further imaging such as an MRI if this persists. If you develop fever/chills, weakness or other new/worsening symptoms to seek care urgently once again. Referrals: Laura Blackwell [Primary Care Provider] - Discharge Data Discharge Date/Time-TO BE ENTERED AT DEPARTURE: 01/03/21 20:06 Medical Decision Making Patient is a 50-year-old female brought in by Stefan ojeda, presenting today with chief complaint of fall 3 days ago. She reports that she fell when her left knee gave out. She reports that this is a chronic issue. States that she remembers striking her head but is unclear if ultimately she lost consciousness. Suffered abrasion to the bridge of her nose. States that since then she has had weakness in the left hand. States she does have chronic weakness in the left hand, particularly on the thumb. Reports that she is planning on having upcoming surgery for nerve grafting. However, feels that this is acutely worse since the fall. Is not having increased pain in this region. Is also having numbness along the lateral aspect of the left lower extremity inferior to the knee. Has not had any difficulty walking. Denies any fevers or chills. Reports that she also has chronic neck pain as she has multiple wires in her neck from fractures affecting C2-C6. Is concerned that one of her wires may have injured her nerve at the time of the fall. On exam, patient appears nontoxic. She is hemodynamically stable. She had a small abrasion to the bridge of her nose, patient healing well no signs of infection. Not compatible with fracture based on exam. No palpable skull fracture, no pain with palpation of the head. She has a long scar in the midline area but no focal area of tenderness on today's exam. No pain of the thoracic or lumbar spine. Lungs are clear, normal cardiac exam. Her left hand appears to be intermittently floppy. She can reach for her soda and will move through doing that but on exam tends to hold it more in a flexed position. With purposeful minutes, she is able to move her fingers but on exam less so. Unclear how this is changed from baseline as she states that she has chronic weakness in his hand. She has no pain to palpation about the shoulder or upper arm. Good strength at the elbow and shoulder. Exam the left lower extremity shows no evidence of acute trauma. She is 2+ distal pulses. No saddle paresthesias. Normal. She is able to flex and dorsiflex at the foot and great toe well. Two-point discrimination is intact on the medial aspect of the left lower leg below the knee but is the opposite of what is tested on the lateral side, for instance when I put down two-point she is H1 and vice versa. With patient's history, primarily concern for acute on chronic issues. I did not see motor deficit to the left lower extremity. SADE is weak with extension, however she reports that she is typically weak here and is s/p multiple surgeries with upcoming procedure. With trauma and history, will obtain CT head, neck and XR of the left knee. FINDINGS: Brain: Normal. No hemorrhage. Unremarkable white matter. No mass effect. Extra-axial space: No evidence of subdural hemorrhage. Cerebral ventricles: No ventriculomegaly. Paranasal sinuses: Visualized sinuses are unremarkable. No fluid levels. Mastoid air cells: Visualized mastoid air cells are well aerated. Bones/joints: Unremarkable. No acute fracture. Soft tissues: Unremarkable. IMPRESSION: No acute intracranial abnormality. FINDINGS: Bones/joints: No acute fracture. Straightening of the normal cervical lordosis noted. Posterior fusion noted C4-C7. Discs/Spinal canal/Neural foramina: No significant disc protrusion appreciated. Fusion of the C4-C5 and C6-C7 levels noted. No severe spinal canal stenosis. No significant neural foraminal narrowing. Lungs: Centrilobular and paraseptal emphysema noted. Soft tissues: Unremarkable. IMPRESSION: Negative for cervical spine fracture FINDINGS: Bones/joints: No evidence of fracture. Negative for dislocation. No evidence of joint effusion. No significant joint space narrowing. Patella tracks normally. Soft tissues: Negative for soft tissue air. No foreign bodies observed. IMPRESSION: No acute osseous abnormality. Discussed findings with the patient. She reports taht she has already reached out to her plastic surgeon, Dr. Cannon at [facility], regarding her worsening chronic left wrist weakness. Is awaiting call back. I encouraged that she continue to call and try to schedule appointment as soon as possible for further evaluation. I encouraged RICE. I advised f/u with PCP within the next week. Advised she may need MRI if symptoms persist. She has had EEG in the past as well which may also need to be considered. Return precautions discussed. She is abl eto return with new/worsening symptoms. All of her questions and concerns were addressed, she is in agreement with this plan. [facility] General Mode of arrival: ambulatory. Date/Time Provider Initiated Documentation: 01/03/21 17:40. Limitations to Documentation: no limitations. Information obtained by: patient, family (driver's license examiner), RN/MD (contacted by urgent care provider) and RN notes reviewed. History of Present Illness 50 year old F presents to the emergency department with the chief complaint of left wrist weakness, left knee pain and paresthesias, described as moderate, with intensity rated at 7. Quality is described as aching, and is localized to the left, upper extremity and lower extremity. Patient extremity. Patient started experiencing this day(s) and it has been constant. Immobilization improves symptom(s), Movement worsens symptoms . Patient notes weakness; denies confusion, chest pain, cough, fever/chills, loss of appetite, malaise, nausea/vomiting, rash and shortness of breath. Patient did receive the following treatments prior to arrival, none Related Data Home Medications Medication Instructions Recorded Confirmed trazodone 100 mg PO HS 09/11/16 01/03/21 methadone 10 mg/5 mL oral solution 115 mg PO DAILY ml 01/07/18 01/03/21 albuterol sulfate 90 mcg/actuation 2 puff IH Q6H PRN 11/21/19 01/03/21 aerosol inhaler clonazepam 0.5 mg PO BID PRN 12/29/19 10/20/20 estradiol 1 mg PO DAILY 03/05/20 10/20/20 ibuprofen 800 mg PO TID PRN 03/05/20 01/03/21 pregabalin 150 mg PO BID 03/05/20 10/20/20 doxycycline hyclate [Morgidox] 100 mg PO BID #14 cap 04/24/20 quetiapine 50 mg PO HS 10/20/20 10/20/20 Previous Rx's Medication Instructions Recorded doxycycline hyclate [Morgidox] 100 mg PO BID #14 cap 04/24/20 Allergies Allergy/AdvReac Type Severity Reaction Status Date / Time cephalexin monohydrate Allergy Intermediate Skin Rash Verified 01/03/21 17:47 [From Keflex] zaleplon [From Sonata] Allergy Unknown Verified 01/03/21 17:47 oxycodone HCl AdvReac Intermediate Nausea Verified 01/03/21 17:47 [From OxyContin] buspirone AdvReac Unknown Disconnected Verified 01/03/21 17:47 feeling sertraline HCl [From Zoloft] AdvReac Unknown Disconnect Verified 01/03/21 17:47 feeling, I dont feel like myself General Stated Complaint: GenMedical LIO: 3 Review of Systems Constitutional Constitutional: Reports as per HPI, Denies chills, Denies fever(s), Denies headache(s) and Reports weakness (LUE, acute on chronic) Eyes Eyes: Denies change in vision ENT Ears, Nose, Mouth, and Throat: Denies headache(s) and Reports neck pain (chronic pain) Cardiovascular Cardiovascular: Reports as per HPI, Denies chest pain, Denies leg edema, Denies lightheadedness, Denies radiating jaw, neck or arm pain and Denies dyspnea Respiratory Respiratory: Reports as per HPI, Denies cough and Denies dyspnea Gastrointestinal Gastrointestinal: Denies abdominal pain and Denies change in bowel habits Genitourinary Genitourinary: Reports system reviewed and no additional complaints, except as documented (denies change in urinary habits) Musculoskeletal Musculoskeletal: Reports as per HPI, Reports arthralgias (left knee), Denies joint swelling, Reports neck pain (chronic pain), Denies radiating pain into limb and Reports tingling Integumentary/Breasts Skin/Breast: Reports as per HPI, Denies rash and Reports wounds (abrasion to nose) Neurologic Neurologic: Reports as per HPI, Denies headache(s), Reports tingling, Reports paresthesias and Reports weakness (LUE, acute on chronic) [facility] Medical History (Updated 01/03/21 @ 19:45 by ELIANE Morrison) Abnormal LFTs Abnormal mammogram Adenomatous colon polyp Anemia Anxiety Benzodiazepine overdose Per pt. is unaware of this Borderline personality disorder Pt. states she is not aware of this dx Breast mass in female Chronic neck pain Chronic pain Combinations of opioid type drug with any other drug dependence, in remission Constipation The problem was part of today's visit Depression Endometriosis Female rectocele without uterine prolapse First degree AV block Hepatitis C Pt. states she was unaware of this Hx of colonic polyps Hx of drug dependence On methadone Laceration of wrist Low back pain Memory impairment Nausea & vomiting Noncompliance a. multiple missed outpatient appts with PCP's office per their records Normal colonoscopy (01/16/17) Dr Noriega recommended next in 10 yrs Opioid dependence Panic disorder Sacroiliac joint dysfunction of right side Tobacco abuse Tobacco abuse Surgical History Abdominal hysterectomy Arthroscopy, Shoulder Colonoscopy - [facility] [place] (01/16/17) H/O cervical spine surgery (~10/16/18) fusion 1988 H/O spinal fusion Hx laparoscopic cholecystectomy Lorne Fundoplication S/P wrist surgery Social History Smoking/Tobacco Use Status: Current every day Tobacco Type: e-cigarettes Smoking risk assessment performed?: Yes Alcohol Intake: never Drug use: Current Sobriety Substance use type: crack/cocaine and opiates Details: relapsed on crack 2 days ago Number of Children: 2 What type of physical activity do you participate in: none Do you feel safe at home: Yes Do you feel safe in your relationship?: Yes Exam Const General: cooperative, healthy appearing, comfortable, no acute distress, well developed and well groomed Nutritional Appearance: average body habitus and well nourished Orientation: alert and awake [facility] Head: normal to inspection, no palpable skull fracture, normocephalic and atraumatic General nose exam: external nose not normal (small, healing, abrasion bridge of nose) and nares normal Eyes General: appearance normal, both eyes and all related structures Pupils: PERRL and normal by confrontation EOM: EOM intact bilaterally Neck Neck: normal visual inspection (well healed midline incision) and full ROM Resp Effort & Inspection: normal respiratory effort, able to speak in complete sentences and no respiratory distress Auscultation: clear to auscultation bilaterally Cardio Rate: regular rate Rhythm: regular rhythm Heart Sounds: S1 normal and S2 normal Back/Spine/Pelvis Cervical Spine: cervical ROM normal Thoracic/Lumbar Spine: thoracic and lumbar spine normal to inspection, No thoracic spinal tenderness and No lumbar spinal tenderness Skin Trauma: abrasion (to nose) Neuro General: patient alert and patient awake Cranial Nerves: CN's II-XI intact bilaterally Cognition: normal cognition Speech: speech normal Gait: normal gait Motor: strength not 5/5 throughout (4/5 LUE ), no pronator drift, no movement abnormalities noted and no fasciculations Sensory Exam: abnormal double simultaneous stimulation (Lateral LLE senses opposite) Extrem Left upper extremity: normal to inspection, full ROM, normal capillary refill, no joint enlargement, elbow/forearm Details: normal to inspection, normal ROM and distal pulses intact; no tenderness, no swelling, no unusual warmth, no abrasions, no ecchymosis, no crepitus and no deformity and wrist Details: normal to inspection, normal vascular exam and radial pulse present; no tenderness, no swelling, ROM abnormal (Weakness with extension), no unusual warmth, no abrasions, no ecchymosis, no crepitus and no deformity; no edema Ankle/foot/toe images: 1. Area of altered sensation. No evidence of trauma. 2+ distal pulses. Full ROM. 2 point is opposite in this area. Normal sensation on the medial aspect and above the knee. Diffuse discomfort about the knee, no objective trauma. No effusion. Psych Appearance: grossly normal and well kempt Mental Status: mental status grossly normal Speech and Movement: speech and movement normal Course Vital Signs Vital signs: Vital Signs Temperature 36.9 C 01/03/21 17:41 Pulse 94 H 01/03/21 17:41 Respiratory Rate 18 01/03/21 17:41 Blood Pressure 144/84 H 01/03/21 17:41 Pulse Oximetry 95 01/03/21 17:41 Temperature 36.9 C 01/03/21 17:41 Pulse 94 H 01/03/21 17:41 Respiratory Rate 20 01/03/21 17:45 Respiratory Effort Non-Labored 01/03/21 17:45 Respiratory Depth Normal 01/03/21 17:45 Respiratory Pattern Normal 01/03/21 17:45 Blood Pressure 144/84 H 01/03/21 17:41 Pulse Oximetry 95 01/03/21 17:41 Oxygen Delivery Method Room Air 01/03/21 17:41 Oxygen Flow Rate 0 01/03/21 17:41 Pain Level 4 01/03/21 17:41
--- NOTE | 2021-01-03 18:15 | DI.CT_ITS ---
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 TECHNIQUE: Imaging Protocol: Axial computed tomography images with coronal and sagittal reformatted images were created and reviewed COMPARISON: CT CT HEAD WO from 03/04/2020 FINDINGS: Head CT Ventricles and Extra axial spaces: Normal in size and morphology for the patient's age. Hemorrhage: None. Cerebral parenchyma: Normal. Midline shift: None. Brainstem/Cerebellum: Normal. Calvarium: Normal. Visualized Paranasal sinuses/Mastoids: Clear. Cervical Spine CT BONES: Prior posterior fusion at C4 through C7. Old mild anterior wedging of the C6 vertebral body. Mild degenerative disc changes, greatest at C3-4, above the level of the fusion. There is no eviden ce of acute fracture. SOFT TISSUES: No paraspinal hematoma. The airway appears intact. No pneumothorax is seen at the lung apices. IMPRESSION: Head CT: No acute abnormality. C-spine CT: Prior posterior fusion. Degenerative changes, no acute abnormality. RADIATION DOSE DELIVERED: 1,147.34mGy.cm Total DLP DATA REPOSITORY: All CT scans at this facility are submitted to the National Radiology Data Registry (NRDR) Dose Index Registry (DIR) with the [employer] ([employer]). RADIATION OPTIMIZATION: All CT scans at this facility use at least one of these dose optimization te chniques: automated exposure control; mA and/or kV adjustment per patient size (includes targeted exa ms where dose is matched to clinical indication); or iterative reconstruction.
--- NOTE | 2021-01-03 18:15 | DI.RAD_ITS ---
Exam(s) XR KNEE LT 4V AP,LAT,MAUREEN,PAT EXAM: XR KNEE LT 4V AP,LAT,MAUREEN,PAT CLINICAL HISTORY: fall. TECHNIQUE: 2D digital imaging was performed. COMPARISON: CR XR KNEE LT 3V AP,LAT,MAUREEN from 10/20/2020 FINDINGS: BONES: No acute fracture is present. No bony destructive lesion is seen. JOINTS: The knee is normally aligned. No joint effusion is seen. SOFT TISSUE: Normal. IMPRESSION: Normal radiographs of the left knee. DATA REPOSITORY: RADIATION DOSE DELIVERED:
--- NOTE | 2021-01-03 19:02 | DI.VRAD_ITS ---
PROCEDURE INFORMATION: Exam: CT Head Without Contrast Exam date and time: 01/03/2021 6:18 PM Age: 50 years old Clinical indication: Injury or trauma; Blunt trauma (contusions or hematomas); Prior surgery; Surgery type: Neck; Patient HX: Fall 3 days ago, weakness left hand TECHNIQUE: Imaging protocol: Computed tomography of the head without contrast. COMPARISON: MR BRAIN WO 03/05/2020 8:55 AM FINDINGS: Brain: Normal. No hemorrhage. Unremarkable white matter. No mass effect. Extra-axial space: No evidence of subdural hemorrhage. Cerebral ventricles: No ventriculomegaly. Paranasal sinuses: Visualized sinuses are unremarkable. No fluid levels. Mastoid air cells: Visualized mastoid air cells are well aerated. Bones/joints: Unremarkable. No acute fracture. Soft tissues: Unremarkable. IMPRESSION: No acute intracranial abnormality. PROCEDURE INFORMATION: Exam: CT Cervical Spine Without Contrast Exam date and time: 01/03/2021 6:18 PM Age: 50 years old Clinical indication: Injury or trauma; Blunt trauma (contusions or hematomas); Prior surgery; Surgery type: Neck; Patient HX: Fall 3 days ago, weakness left hand TECHNIQUE: Imaging protocol: Computed tomography images of the cervical spine without contrast. COMPARISON: MR BRAIN WO 03/05/2020 8:55 AM FINDINGS: Bones/joints: No acute fracture. Straightening of the normal cervical lordosis noted. Posterior fusion noted C4-C7. Discs/Spinal canal/Neural foramina: No significant disc protrusion appreciated. Fusion of the C4-C5 and C6-C7 levels noted. No severe spinal canal stenosis. No significant neural foraminal narrowing. Lungs: Centrilobular and paraseptal emphysema noted. Soft tissues: Unremarkable. IMPRESSION: Negative for cervical spine fracture. Dictated and Authenticated by: Scott Denise MD. Ordering:GISSEL Ang MD
--- NOTE | 2021-01-03 19:04 | DI.VRAD_ITS ---
PROCEDURE INFORMATION: Exam: XR Left Knee Exam date and time: 01/03/2021 6:18 PM Age: 50 years old Clinical indication: Injury or trauma; Blunt trauma; Left; Injury date: 12/2020; Injury details: Fall a few days ago. PT states she has a torn meniscus and knee went out TECHNIQUE: Imaging protocol: XR Left knee. Views: 4 or more views. COMPARISON: CR XR KNEE LT 3V AP,LAT,MAUREEN 10/20/2020 10:36 AM FINDINGS: Bones/joints: No evidence of fracture. Negative for dislocation. No evidence of joint effusion. No significant joint space narrowing. Patella tracks normally. Soft tissues: Negative for soft tissue air. No foreign bodies observed. IMPRESSION: No acute osseous abnormality. Dictated and Authenticated by: Scott Denise MD. Ordering:GISSEL Ang MD
[2021-01-03 20:05] VITALS: BP 144/84; PULSE 94; RESP 20; TEMP 36.9; O2SAT 95
== END 2021-01-03 20:06 | disposition home or self-care (01) ==
PROVIDERS: Emergency Provider Physician Assistant; PCP Nurse Practitioner Family
DX: R20.2 Paresthesia of skin (principal); R53.1 Weakness; S00.31XA Abrasion of nose, initial encounter; W18.39XA Other fall on same level, initial encounter; M25.362 Other instability, left knee
CPT/HCPCS: 99284; 70450; 72125; 73564; 99283

== ENCOUNTER 2021-02-25 13:47 | Emergency (ER) | payer MEDICAID, SELFPAY ==
[2021-02-25 13:57] VITALS: BP 146/91; PULSE 84; RESP 18; TEMP 36.6; O2SAT 98
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
== END 2021-02-25 14:55 | disposition left against medical advice (07) ==
PROVIDERS: Emergency Provider Physician Assistant; PCP Nurse Practitioner Family
DX: M25.511 Pain in right shoulder (principal); M79.641 Pain in right hand; W22.09XA Striking against other stationary object, initial encounter; Z53.29 Procedure and treatment not carried out because of patient's decision for other reasons
CPT/HCPCS: 99281

== ENCOUNTER 2021-05-02 10:18 | Observation (INO) | payer MEDICAID, SELFPAY ==
[2021-05-02 10:21] VITALS: BP 132/73; PULSE 89; RESP 18; TEMP 35.2; O2SAT 99
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
[2021-05-02 11:03] LABS: Abs Immature Grans 0.01 10^3/uL (0.0-0.06); Absolute Basophil Count 0.03 10^3/uL (0.0-0.2); Absolute Eosinophil Count 0.05 10^3/uL (0.0-0.7); Absolute Lymphocyte Count 1.28 10^3/uL (1.2-3.4); Absolute Monocyte Count 0.31 10^3/uL (0.1-0.8); Absolute Neutrophil Count 1.31 10^3/uL (1.2-6.7); Eosinophils % 1.7; HCT 42.5 % (36.0-46.0); HGB 13.8 g/dL (11.2-15.7); Immature Grans % 0.3; Lymphocytes % 42.8; MCH 29.7 pg (27.0-33.0); MCHC 32.5 % (32.0-36.0); MCV 91.6 fL (80-95); Monocytes % 10.4; Neutrophils % 43.8; Nucleated RBC 0 %; Platelet Count 231 10^3/uL (130-400); RBC 4.64 10^6/uL (3.93-5.22); RDW 13.7 % (11.7-14.6); RDW-SD 46.2 fL; WBC 2.99 10^3/uL (4.4-10.8)
[2021-05-02 11:05] LABS: Bilirubin Negative (Negative); Blood Trace-lysed (Negative); Clarity Clear (Clear); Glucose Negative (Negative); Ketones Negative (Negative); Leukocyte Esterase Trace (Negative); Nitrite Negative (Negative); Urobilinogen 0.2 EU/dL (Up TO 0.2)
[2021-05-02 11:12] LABS: Epithelial Cells Moderate HPF (Negative); RBC 0-2 HPF (0-2); WBC 0-2 HPF (0-5)
[2021-05-02 11:13] LABS: Bacteria Few HPF (Negative); C & S Indicated? No/Sq. Contamination; Casts Negative LPF (Negative); Crystals Negative HPF (Negative); Mucus Negative (Negative)
[2021-05-02 11:16] LABS: *AMPHETAMINES SCREEN URINE Negative (Negative); *BARBITURATES SCREEN URINE Negative (Negative); *BENZODIAZEPINES SCREEN URINE Negative (Negative); Cannabinoids THC Negative (Negative); Cocaine Screen,Urine Positive (Negative); METHADONE URINE SCREEN Positive (Negative); OPIATES URINE SCREEN Positive (Negative)
[2021-05-02 11:17] LABS: Tricyclic Antidepressants Negative (Negative)
[2021-05-02 11:25] LABS: ALT 54 U/L (14-59); AST 25 U/L (15-37); Albumin 4.6 g/dL (3.4-5.0); Alkaline Phosphatase 101 U/L (46-116); Anion Gap 8.3 mmol/L (3-11); BUN 9 mg/dL (7-18); Bilirubin, Total 0.3 mg/dL (0.2-1.0); CO2 30.7 mmol/L (21.0-32.0); CREATININE 0.9 mg/dL (0.55-1.02); Calcium 9.5 mg/dL (8.5-10.1); Chloride 102 mmol/L (98-107); Glucose 71 mg/dL (74-106); Sodium 141 mmol/L (136-145); TSH (W/Ref FT4) 0.75 uIU/mL (0.36-3.74); Total Protein 9.6 g/dL (6.4-8.2)
[2021-05-02 11:29] LABS: ETHANOL BLOOD < 3.0 mg/dL (<10); Potassium 2.9 mmol/L (3.5-5.1)
[2021-05-02 11:30] LABS: Salicylate 4.9 mg/dL (<2.8)
[2021-05-02 11:34] LABS: Acetaminophen < 2 ug/mL (10-30)
[2021-05-02] MEDS: Potassium Chloride 20 MEQ TABCR 40 MEQ PO (11:36)
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
[2021-05-02 14:54] LABS: Source Nasal/Nares
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
[2021-05-02] MEDS: Methadone Liquid 10 MG/ML 70 MG PO (15:07)
--- NOTE | 2021-05-02 15:37 | CMSP_ITS ---
- If Service Date Differs Date of service: 05/02/21 Time of Service: 15:37 Care Management Safety Plan Status: Voluntary - Reason for Wait Reason for Wait: Inpatient Admission CHIEF COMPLAINT: Jodee is a 51 year old female who presents in the ED for a psychiatric evaluation. She has a long history of substance use, receives services at [facility], and sees Dr. Pisano, psychiatrist, for therapy. By patient's report, she used Fentanyl early this morning and is tired of living the way she has been. Jodee met with Naima of [facility] this afternoon but an evaluation could not be done due to Jodee struggling to stay awake and answer questions. Jodee will remain at [facility] through the night and will be reassessed by [facility] tomorrow when she is hopefully more alert and able to engage. VOLUNTARY FOR INPATIENT PSYCHIATRIC STABILIZATION. Patient is appropriate in all interactions since arriving at [facility]; Pt has demonstrated appropriate coping and communication skills, has articulated his or her needs and concerns and is fully engaged during staff interactions. Safety plan has been established with patient, and care team, to adhere to patient goals, identify restrictions based on behavioral status, address nutrition, and determine allowed personal belongings, tools for hygiene and personal care. Determine level of activity including ambulation, level of supervision, visitors, and determine privileges based on behaviors and level of engagement by pt. SAFETY PLAN: 1. Will remain on suicide precautions and in Paper Clothes. 2. Will remain in room under direct supervision of one-on-one staff at all times provided by CPSO, STATE APPELLATE CLERK, ACADEMIC DEAN senior etl developer. 3. May have paper cups, plates, finger foods as well as a cardboard spoon with which to eat meals. 4. Follow [facility] Management of the Admitted Behavioral Health Patient policy. 5. May shower with supervision and at RN discretion. 6. No personal belongings 7. Visitors-No visitors at this time 8. Activities: Soft cart items, music tablet, television if available, and other activities at RN discretion. 9. Bathroom privileges with escort while in the ED; may use bathroom in room without limitation on Med/Surg. 10. Phone: May use hospital phone at RN discretion. 11. Due to VOLUNTARY status, if patient wishes to leave [facility], staff will contact [facility] Crisis Screener ([phone]) and On-Call Stock Handler Floorperson ([phone]) as soon as possible. In the event of elopement, notify [facility] Police ([phone]). Patient is currently voluntarily at [facility] and seeking inpatient admission when a bed becomes available. [facility] Frontline Program Manufacturing Leader will continue seeking placement. Please contact the Company Laborer Stock Handler Floorperson ([phone]) and [facility] Program Manufacturing Leader ([phone]) for any needed changes in the Safety Plan. Safety plan has been provided to interdepartmental care team.
[2021-05-02 16:38] VITALS: BP 135/86; PULSE 72; RESP 16; TEMP 36.9; O2SAT 96
--- NOTE | 2021-05-02 17:00 | MHPN_ITS ---
Date of service: 05/02/21 Time of Service: 13:15 Mental Health Progress Note Progress Note Progress Note: Presenting Issue: Client arrived at the ED presenting with SI. Precipitating Factors Disposition * Behavior: Client is calm and reports that she is tired and sick. She struggles to stay awake during assessment and began snoring at one point. *Eye Contact:Client made little to no eye contact. Her eyes remained during the majority of the assessment. *Mood:Client reports that she feels anxious, and on a scale from 1-10 her anxiety is a 9. *Affect:Flat. *Appetite: Client appeared to not have an appetite, and denied food. *Sleep(troubel falling/staying asleep): Sleep was not assessed at this time. Plan(please elaborate and include that physician is consulted with plan and/or placement): Client was not appropriate to complete mental health exams. She could not stay alert long enough to answer questions at time of assessment. At first client stated she had SI, but denied plan and intent. When safety plan was almost completed, the client began stating that she could not go home. She reports that she does not trust herself to not harm herself, and that she is in need of p sychiatric treatment. Since clients answers were not clear, she will remain at [facility] voluntarily to be reassessed more efficiently tomorrow. This assessment will be used as a preliminary, a more in-depth assessment will be done tomorrow. Clinician's Name , Title, and Signature Kimber Villegas, Emergency Services Clinician Make sure that you are photocopying and submitting this to [facility] records Dept. to be scanned into chart.
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
[2021-05-02] MEDS: Gabapentin 600 MG TAB PO (19:05)
[2021-05-02] MEDS: LORazepam 1 MG TAB PO (19:05)
[2021-05-02 20:09] LABS: COVID-19 PCR Negative (Negative)
[2021-05-02] MEDS: traZODone 100 MG TAB 200 MG PO (21:44)
--- NOTE | 2021-05-03 06:36 | NUR.NOTE ---
Nursing Note: Patient with question regarding timing of Methadone. Relayed to patient that Methadone is scheduled for 8:30 pm. Pt states she normally takes this medication at 6:30. Medication is not in Pyxis at this time, will need to be loaded by pharmacy. Informed patient that when the medication is available she can receive it. Will pass this to oncoming nurse. Patient did receive a dose of Methadone yesterday afternoon at 1500.
[2021-05-03] MEDS: LORazepam 1 MG TAB PO ×2 (07:53→19:16)
[2021-05-03] MEDS: Gabapentin 600 MG TAB PO ×3 (07:53→19:17)
[2021-05-03] MEDS: Methadone Liquid 10 MG/ML 140 MG PO (07:54)
[2021-05-03 10:19] VITALS: BP 128/75; PULSE 68; RESP 18; TEMP 36.8; O2SAT 98
[2021-05-03 15:26] VITALS: BP 98/59; PULSE 64; RESP 18; TEMP 36.7; O2SAT 97
--- NOTE | 2021-05-03 15:30 | CMSP_ITS ---
- If Service Date Differs Date of service: 05/03/21 Time of Service: 15:30 Care Management Safety Plan Status: Voluntary - Reason for Wait Reason for Wait: Inpatient Admission VOLUNTARY FOR INPATIENT PSYCHIATRIC STABILIZATION. Patient is appropriate in all interactions since arriving at [facility]; Pt has demonstrated appropriate coping and communication skills, has articulated his or her needs and concerns and is fully engaged during staff interactions. A huddle is held at approximately 14:00 pm with Faye, Nursing Clinical Rehabilitation Coordinator, Mala, Coordinator, NANDO De Paz, and LORETTA Veronica, in attendance. Safety plan has been established with patient, and care team, to adhere to patient goals, identify restrictions based on behavioral status, address nutrition, and determine allowed personal belongings, tools for hygiene and personal care. Determine level of activity including ambulation, level of supervision, visitors, and determine privileges based on behaviors and level of engagement by pt. SAFETY PLAN: 1. Will remain on suicide precautions and in Paper Clothes. 2. Will remain in room under direct supervision of one-on-one staff at all times provided by CPSO, SIVAKUMAR, NIGHT SHIFT MANAGER staff attorney. 3. May have paper cups, plates, finger foods as well as a cardboard spoon with which to eat meals. 4. Follow [facility] Management of the Admitted Behavioral Health Patient policy. 5. May shower with supervision and at RN discretion. 6. No personal belongings 7. Visitors-No visitors at this time 8. Activities: Soft cart items, music tablet, television if available, and other activities at RN discretion. 9. Bathroom privileges with escort while in the ED; may use bathroom in room without limitation on Med/Surg. 10. Phone: May use hospital phone at RN discretion. 11. Due to VOLUNTARY status, if patient wishes to leave [facility], staff will contact [facility] Crisis Screener ([phone]) and On-Call Candy Department Manager ([phone]) as soon as possible. In the event of elopement, notify [facility] Police ([phone]). Patient is currently voluntarily at [facility] and seeking inpatient admission when a bed becomes available. [facility] Frontline Horse Wrangler will continue seeking placement. Please contact the Solvent Plant Treater Candy Department Manager ([phone]) and [facility] Horse Wrangler ([phone]) for any needed changes in the Safety Plan. Safety plan has been provided to interdepartmental care team.
--- NOTE | 2021-05-03 15:40 | CMPROGNOTE_ITS ---
- If Service Date Differs Date of service: 05/03/21 Time of Service: 15:40 Care Management Progress Note S/O: Loida has slept most of the day, though she is arousable. She met with Silvino of [facility] this morning and spoke with her psychiatrist, Dr. Pisano, via phone this afternoon. At provider's request, CM telephoned [facility] and confirmed Loida's Methadone dose at 140 mg PO daily. Loida continues to report suicidal thoughts and expresses a desire to seek placement for mood stabilization. CM will continue to follow. A: Jodee is a 51 year old female who presented at [facility] on 05/02/2021 for suicidal ideation. P: Loida will remain at [facility] and will be reassessed daily by [facility] while awaiting a voluntary psychiatric placement. Referrals are faxed to [facility], [facility], [facility], and [facility] for review. Currently there are no available beds. CM will continue to support Loida and discharge planning needs. - Status Status: Voluntary - Reason for Wait Reason for Wait: Inpatient Admission
--- NOTE | 2021-05-03 15:50 | MHPN_ITS ---
Date of service: 05/03/21 Time of Service: 09:50 Mental Health Progress Note Progress Note Progress Note: Presenting Issue: Client presented to the ED via herself for SI, as well as ?not feeling well.? Precipitating Factors Disposition * Behavior: Calm, cooperative, depressive presentation. Client appeared to be more coherent and alert today. *Eye Contact: Client displayed good eye contact. *Mood:Client reports that she feels okay, and is having thoughts of hurting myself. *Affect:Flat. *Appetite: Client reports not having any appetite at all. While at [facility] she has only eaten crackers and drank gingerale. *Sleep(troubel falling/staying asleep):Client reports both having trouble falling asleep/staying asleep, and sleeping too much. Plan(please elaborate and include that physician is consulted with plan and/or placement): Due to high scores on the assessment tools, lack of coping skills and supports the client was unable to safety plan home. She states, I don't trust myself not to hurt myself or someone else hurt me, if I go home. The client requested to be admitted to a psychiatric facility. She is open to diversion beds. Referrals have been sent to [facility], [place], [facility], and [facility]. Client agreed to meet with [facility] while waiting for placement at [facility]. Client will be reassessed daily by [facility]. Clinician's Name , Title, and Signature Kimber Villegas, Emergency Services Clinician Make sure that you are photocopying and submitting this to [facility] records Dept. to be scanned into chart.
--- NOTE | 2021-05-03 16:18 | W.PM.PROGNOT ---
Date of Service Date of service: 05/03/21 Time of Service: 16:18 Assessment and Plan Assessment and plan (1) Depression: Status: Chronic Assessment and plan: was medically cleared in ED and awaiting voluntary inpatient psychiatric care. cpso continue home medications. (2) Hx of drug dependence: Status: Acute Assessment and plan: scheduled for home dose of methadone which was confirmed by [facility] (3) Discharge planning issues: Status: Acute Assessment and plan: mental health following on voluntary hold while discharge planning discussed with DR Matthews Subjective Subjective Patient reports: no new complaints, feels better, tolerating liquids well, tolerating a regular diet and afebrile; denies shortness of breath Interval history since last seen: remains medically stable and CPSO at bedside. Exam Const General: no acute distress and frail appearing Nutritional Appearance: thin Orientation: other (sedate but arousable) HENMT Head: normal to inspection, normocephalic and atraumatic Face and sinus: normal facial exam Mouth: oral mucosae normal Resp Effort & Inspection: normal respiratory effort (respirations even and unlabored) Cardio Rate: regular rate Rhythm: regular rhythm Neuro General: patient oriented x3 and no focal motor deficits Extrem General: normal to inspection, full ROM and no pedal edema Psych Affect: blunted Attitude: cooperative Thought Process: normal Thought Content: suicidality Insight: poor Judgment: poor Objective Last Vital Signs Temp 36.7 C 05/03/21 15:26 Pulse 64 05/03/21 15:26 Resp 18 05/03/21 15:26 BP 98/59 L 05/03/21 15:26 Pulse Ox 97 05/03/21 15:26 Laboratory Results - last 24 hr 05/02/21 14:45 SARS-CoV-2 (PCR) Negative
[2021-05-03] MEDS: traZODone 100 MG TAB 200 MG PO (21:54)
[2021-05-03 23:50] VITALS: BP 101/63; PULSE 63; RESP 18; TEMP 37; O2SAT 100
[2021-05-04] MEDS: LORazepam 1 MG TAB PO (07:41)
[2021-05-04] MEDS: Gabapentin 600 MG TAB PO (07:41)
[2021-05-04] MEDS: Methadone Liquid 10 MG/ML 140 MG PO (07:42)
[2021-05-04 09:16] VITALS: BP 117/75; PULSE 55; RESP 16; TEMP 36.4; O2SAT 98
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
--- NOTE | 2021-05-04 14:39 | MHPN_ITS ---
Date of service: 05/04/21 Time of Service: 10:10 Mental Health Progress Note Progress Note Progress Note: Presenting Issue: Precipitating Factors Disposition * Behavior:Cooperative and appropriate *Eye Contact:Active *Mood:better No thoughts of wanting hurt self *Affect: Congruent with mood *Appetite:Normal *Sleep(troubel falling/staying asleep):None reported Plan(please elaborate and include that physician is consulted with plan and/or placement):Client created a proactive safety plan with writing clinician. Client will share this with her neighbor Dali who has been caring for her dog. Client identifies when she is in crisis her warning signs are isolation, messy house, thought of hurting self. Client states she can use internal coping skills such as doing crossword puzzles, playing/ going for a walk with dog, using her phone, and breathing. Client state people who can provide distractions are her mom, Danika Cline and neighbor Dali. Client reports people whom she can ask for help are her mom and friend Stefan. Client lists professional agencies she can contact: [facility] Counselor, Dr. Pisano, [facility] and the National Suicide Prevention Lifeline. Client states for making environment safe she needs to clean daily and keep a substance free environment. Client referrals will be made to Case Management, Counselling, and Psychiatry. A high risk case manager from [facility] was also requested to see client to discuss resources before being discharged. Copy of proactive safety plan was faxed to [facility] Care Management to be sent home with client. Clinician's Name , Title, and Signature Dashawn Moser BA Make sure that you are photocopying and submitting this to [facility] records Dept. to be scanned into chart.
--- NOTE | 2021-05-04 17:24 | CMDISCH_ITS ---
- If Service Date Differs Date of service: 05/04/21 Time of Service: 17:24 Care Management Discharge Reason for Hospitalization: Depression Discharge Plan: Loida will be discharged home on a Safety Plan coordinated by [facility]. She will transport via [facility] and follow up with her community providers. Patient/Family Education Needs: review of safety plan and discharge instructions. - MH Services (Omit if N/A) Current MH Services: Internal [facility] - Disposition Disposition: Community Discharge Transport via of: Other
== END 2021-05-04 12:58 | disposition home or self-care (01) ==
LOC: ER 13:49 → MS 16:37
PROVIDERS: Admitting Provider Internal Medicine; Emergency Provider Student in an Organized Health Care Education/Training Program; PCP Nurse Practitioner Family; Visit Provider Internal Medicine
DX: F32.A Depression, unspecified (principal); R45.851 Suicidal ideations; F11.20 Opioid dependence, uncomplicated; F19.90 Other psychoactive substance use, unspecified, uncomplicated; F41.0 Panic disorder [episodic paroxysmal anxiety]; D64.9 Anemia, unspecified; F17.210 Nicotine dependence, cigarettes, uncomplicated; Z91.19 Patient's noncompliance with other medical treatment and regimen; G89.29 Other chronic pain; K59.00 Constipation, unspecified; I44.0 Atrioventricular block, first degree; Z20.822 Contact with and (suspected) exposure to COVID-19
CPT/HCPCS: 36415; 80053; 80307; 81025; 87635; 99285; 80320; 80329; 81003; 81015; 84443; 85025; 99217; 99226; G0378

== ENCOUNTER 2021-06-04 10:42 | Emergency (ER) | payer MEDICAID, SELFPAY ==
[2021-06-04] VITALS (12 sets, daily range): BP systolic 126–166; BP diastolic 74–96; PULSE 67–78; RESP 9–16; TEMP 36.9; O2SAT 96–98
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
--- NOTE | 2021-06-04 12:38 | W.ANESVAS ---
Peripheral IV Placement Date Performed: 06/04/21 Procedure Time: 12:25 Requesting Provider: Chavez De Santiago Procedure Location: Emergency Department (Room 2) Sedation Given (Indicate Dose Given): No Sedation given Patient Mental Status: Other (Patient with altered LOC, awakens to verbal with light touch) Laterality: Left Insertion Site: Basilic Size & Type: 18 ga. Dressing: IV Dressing Placed and Other Ultrasound: Used to jono site Number of Attempts (See previous attempts in note section): 1 Procedure Tolerated: No Complications and Patient tolerated well Procedure Outcome: Successful Performed By: Edgard Vasquez
[2021-06-04 12:45] LABS: Abs Immature Grans 0.01 10^3/uL (0.0-0.06); Absolute Basophil Count 0.02 10^3/uL (0.0-0.2); Absolute Eosinophil Count 0.03 10^3/uL (0.0-0.7); Absolute Lymphocyte Count 1.44 10^3/uL (1.2-3.4); Absolute Neutrophil Count 2.04 10^3/uL (1.2-6.7); Basophils % 0.5; Eosinophils % 0.8; HCT 35.5 % (36.0-46.0); HGB 11.6 g/dL (11.2-15.7); Immature Grans % 0.3; Lymphocytes % 36.5; MCH 30.4 pg (27.0-33.0); MCHC 32.7 % (32.0-36.0); MCV 92.9 fL (80-95); MPV 9.3 fL (8.0-11.0); Monocytes % 10.2; Neutrophils % 51.7; Nucleated RBC 0 %; Platelet Count 213 10^3/uL (130-400); RBC 3.82 10^6/uL (3.93-5.22); RDW 13.7 % (11.7-14.6); RDW-SD 46.4 fL; WBC 3.94 10^3/uL (4.4-10.8)
--- NOTE | 2021-06-04 12:53 | NUR.NOTE ---
Patient refused c collar for both EMS and Chavez DEL RIO
[2021-06-04 12:59] LABS: PTT Activated 23.4 sec (21.0-27.5); Prothrombin Time 9.8 sec (9.3-11.0)
[2021-06-04 13:00] LABS: ALT 21 U/L (14-59); AST 20 U/L (15-37); Albumin 3.9 g/dL (3.4-5.0); Alkaline Phosphatase 78 U/L (46-116); BUN 11 mg/dL (7-18); Bilirubin, Total 0.1 mg/dL (0.2-1.0); CREATININE 0.8 mg/dL (0.55-1.02); Calcium 9.2 mg/dL (8.5-10.1); Chloride 104 mmol/L (98-107); ETHANOL BLOOD < 3.0 mg/dL (<10); Glucose 88 mg/dL (74-106); Lipase 57 U/L (73-393); Potassium 3.9 mmol/L (3.5-5.1); Sodium 139 mmol/L (136-145); Total Protein 7.8 g/dL (6.4-8.2)
[2021-06-04] MEDS: Normal Saline 1,000 ML 1000 ML IV (13:01)
[2021-06-04] MEDS: Omnipaque 350 MG/ML 100 ML BTL 85 ML IJ (13:27)
[2021-06-04] MEDS: Normal Saline Flush 10 ML SYR IVP (13:28)
[2021-06-04 13:41] LABS: Bilirubin Negative (Negative); Blood Negative (Negative); Clarity Clear (Clear); Glucose Negative (Negative); Ketones Negative (Negative); Leukocyte Esterase Negative (Negative); Nitrite Negative (Negative); Urobilinogen 0.2 EU/dL (Up TO 0.2)
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
[2021-06-04 14:21] LABS: *AMPHETAMINES SCREEN URINE Negative (Negative); *BARBITURATES SCREEN URINE Negative (Negative); *BENZODIAZEPINES SCREEN URINE Negative (Negative); Cannabinoids THC Negative (Negative); Cocaine Screen,Urine Positive (Negative); METHADONE URINE SCREEN Positive (Negative); OPIATES URINE SCREEN Positive (Negative)
[2021-06-04 14:24] LABS: Tricyclic Antidepressants Negative (Negative)
--- NOTE | 2021-06-04 14:56 | NUR.NOTE ---
PAtient was looking for her box of methadone that was in the car. We did not have it in the ED. I called [facility]. They stated they did not have it and to check with the niesha service, Mary scherer from [facility]. That information was relayed to the patient
== END 2021-06-04 14:43 | disposition home or self-care (01) ==
PROVIDERS: Emergency Provider Physician Assistant; PCP Nurse Practitioner Family
DX: S00.83XA Contusion of other part of head, initial encounter (principal); M25.511 Pain in right shoulder; R41.82 Altered mental status, unspecified; V43.62XA Car passenger injured in collision with other type car in traffic accident, initial encounter; F14.10 Cocaine abuse, uncomplicated; F11.10 Opioid abuse, uncomplicated
CPT/HCPCS: 36415; 74177; 80053; 80307; 83690; 86900; 86901; 96360; 99285; 70450; 71260; 72125; 80320; 81003; 85025; 85610; 85730; 99284; J3490

== ENCOUNTER → 2021-09-05 16:50 | Outpatient (CLI) | payer MEDICAID, SELFPAY ==
--- NOTE | 2021-09-05 15:45 | DI.RAD_ITS ---
Exam(s) XR SHOULDER RT COMPLETE 2+V EXAM: XR SHOULDER RT COMPLETE 2+V CLINICAL HISTORY: PAIN IN RT SHOULDER, M25.511. TECHNIQUE: 2D digital imaging was performed of the right shoulder. Five images were obtained. AP, Grashey, Y-view and axillary views were obtained. COMPARISON: CR XR SHOULDER RT COMPLETE 2+V from 10/20/[address] CHEST/ABD/PEL W from 06/04/[address] HEAD CERVICAL SPINE WO from 06/04/2021 FINDINGS: BONES: There is an old fracture of the right clavicle. There is no acute fracture or dislocation. N o bony destructive lesion is seen. JOINTS: No dislocation present. Stable postsurgical and/or posttraumatic changes at the acromioclavic ular joint. SOFT TISSUE: Normal. IMPRESSION: 1. Old right clavicular fracture. 2. No acute process. DATA REPOSITORY: RADIATION DOSE DELIVERED:
== END ==
PROVIDERS: PCP Nurse Practitioner Family; Visit Provider Nurse Practitioner Family
DX: M25.511 Pain in right shoulder (principal)
CPT/HCPCS: 73030

== ENCOUNTER 2021-12-20 12:59 | Outpatient (CLI) | payer MEDICAID, SELFPAY ==
--- NOTE | 2021-12-20 11:27 | DI.RAD_ITS ---
Exam(s) XR CLAVICLE RT EXAM: XR CLAVICLE RT CLINICAL HISTORY: nonunion-pain TECHNIQUE: COMPARISON: CR XR SHOULDER RT COMPLETE 2+V from 09/05/2021 FINDINGS: Two views were obtained. There is a previously noted resection of the distal clavicle. 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 IMPRESSION: RADIATION DOSE DELIVERED: Total DLP
== END 2021-12-20 13:00 | disposition home or self-care (01) ==
LOC: DIORS 13:00
PROVIDERS: PCP Nurse Practitioner Family; Referring Provider Nurse Practitioner Family; Visit Provider Physician Assistant Surgical
DX: S42.001K Fracture of unspecified part of right clavicle, subsequent encounter for fracture with nonunion (principal); X58.XXXD Exposure to other specified factors, subsequent encounter
CPT/HCPCS: 73000

== ENCOUNTER 2024-09-05 19:08 | Outpatient (REF) | payer MEDICAID, SELFPAY ==
[2024-09-05 21:30] LABS: ALT 28 U/L (14-59); AST 27 U/L (15-37); Albumin 4.3 g/dL (3.4-5.0); Alkaline Phosphatase 83 U/L (46-116); Anion Gap 5.1 mmol/L (3-11); BUN 20 mg/dL (7-18); Bilirubin, Total 0.2 mg/dL (0.2-1.0); CO2 30.9 mmol/L (21.0-32.0); CREATININE 0.9 mg/dL (0.55-1.02); Calcium 9.5 mg/dL (8.5-10.1); Calculated LDL 135 mg/dL (<100); Chloride 100 mmol/L (98-107); Cholesterol 238 mg/dL (<200); Estimated GFR 75.03 (mL/min/1.73m2); Glucose 74 mg/dL (74-106); HDL Cholesterol 78 mg/dL (>or=50); Hemoglobin A1C 5.5 % (<5.7); Potassium 4.4 mmol/L (3.5-5.1); Sodium 136 mmol/L (136-145); Total Protein 8.1 g/dL (6.4-8.2); Triglyceride 125 mg/dL (<150)
[2024-09-08 11:55] LABS: Hepatitis C Ab w Rflx HCV PCR Reactive (Negative)
[2024-09-10 11:29] LABS: HCV RNA Qualitative Undetected (Undetected)
== END 2024-09-05 19:09 | disposition home or self-care (01) ==
LOC: NCHCN 19:08
PROVIDERS: PCP Nurse Practitioner Family; Visit Provider Nurse Practitioner Family
DX: Z11.59 Encounter for screening for other viral diseases (principal); Z13.220 Encounter for screening for lipoid disorders
CPT/HCPCS: 80053; 80061; 86803; 87522; 83036